=== PATIENT | female | born 1970 | race African-American/Black ===

== ENCOUNTER 2016-12-12 18:45 | Emergency (ER) | payer MEDICARE, OTHER ==
[~2016-12-12] VITALS: Ht 175.3 cm; Wt 133.8 kg
[~2016-12-12 18:45] MED LIST: BUSP30TA; CARI350T PO; CYCL10TA2 PO; DEXT20TA24; DICL75TA; DULO60CA44; FEXO180T81 PO; FLUT16SP; GABA600T2 PO; GABA800T PO; HYDR-963 PO; IBUP-1027 PO; KETO10TA PO; LAMO100T; LIDO700A27; METF500T9; MORP15TA PO; MORP30TA83 PO; OMEP40CA5 PO; PANT40TA5; PARO30TA45 PO; VALA500T
[2016-12-12] MEDS ORDERED: KETOROLAC TROMETHAMINE 60 MG/2 ML INJ. IM ONE (20:15)
[2016-12-12] MEDS ORDERED: CYCLOBENZAPRINE 10 MG TABLET. PO ONE (20:15)
[2016-12-12 20:19] VITALS: BP 153/74
--- NOTE | 2016-12-12 21:25 | PHYS DOC ---
Past Medical History Past Medical History: Cancer, Fibromyalgia, Hypertension, Sciatica, Other Additional Past Medical Histor: morbid obesity,breast and uterine cancer, neuropathy,PTSD Past Surgical History: Cancer Surgery, Hysterectomy, Tonsillectomy Additional Past Surgical Histo: bilateral mastectomy, breast reconstruction, gastric sleeve Alcohol Use: None Drug Use: None Adult General Chief Complaint Chief Complaint: MECHANICAL FALL HPI HPI Patient is a 46 year old female who presents status post fall. Patient reports she was going to sit down on a bench when she slipped off the edge of the bench and fell onto the ground, landing on her buttocks. She presents now with pain in her back as well as her left wrist. She did not hit her head or lose consciousness. She has not taken anything for pain prior to coming to emergency department other than putting some lidocaine gel on her wrist. No numbness or weakness. No loss of bowel or bladder continence. Review of Systems Review of Systems Constitutional: Denies fever or chills Respiratory: Denies cough or shortness of breath Cardiovascular: Denies chest pain GI: Denies abdominal pain, nausea, vomiting, or diarrhea Musculoskeletal: Pain throughout back, L wrist pain Neurologic: Denies headache, focal weakness or sensory changes Current Medications Current Medications Current Medications Medications (Trade) Dose Ordered Sig/[place] Start Time Stop Time Status Last Admin Dose Admin Cyclobenzaprine HCl (Flexeril) 10 mg 1X ONCE 12/12/16 20:15 12/12/16 20:16 DC 12/12/16 20:25 10 MG Ketorolac Tromethamine (Toradol Im) 30 mg 1X ONCE 12/12/16 20:15 12/12/16 20:16 DC 12/12/16 20:26 30 MG Allergies Allergies Allergies Coded Allergies Type Severity Reaction Last Updated Verified sulfamethoxazole Allergy Intermediate itching 06/27/16 Yes trimethoprim Allergy Intermediate itching 06/27/16 Yes I S O L A T I O N *CONTACT* Allergy Unknown 08/25/15 Yes Physical Exam Physical Exam Constitutional: Well developed, well nourished, no acute distress, non-toxic appearance HENT: Normocephalic, atraumatic, bilateral external ears normal Neck: Normal range of motion, no stridor Cardiovascular: Heart rate normal, regular rhythm, no murmur Lungs & Thorax: Bilateral breath sounds clear to auscultation Abdomen: Bowel sounds normal, soft, non-distended, no TTP Back: Mild TTP throughout lumbar and thoracic spine as well as laterally (L>R), no stepoff or deformity noted, no skin lesion Extremities: L wrist TTP over radial aspect of distal wrist, sensation to light touch and motor function fully intact, 2+ radial pulse Neurologic: Alert and oriented X 3, strength and sensation to light touch intact and symmetrical in BLE, no gross deficits noted Psychologic: Affect normal, judgement normal, mood normal Current Patient Data Vital Signs Vital Signs Date Time Temp Pulse Resp B/P Pulse Ox O2 Delivery O2 Flow Rate FiO2 12/12/16 20:19 88 153/74 Room Air 12/12/16 18:45 98.7 20 99 98.7 EKG EKG [] Radiology/Procedures Radiology/Procedures X-ray L wrist (my read): Small cortical irregularity at lateral aspect of distal radius X-ray thoracic spine (my read): No acute bony abnormality X-ray lumbar spine (my read): No acute bony abnormality Course & Med Decision Making Course & Med Decision Making Pertinent Labs and Imaging studies reviewed. (See chart for details) Patient is 46-year-old female who presents after fall. Will obtain x-rays of lumbar and thoracic spine as well as left wrist. Dose of Toradol and muscle relaxant ordered for pain control. Appears to have irregularity of distal radius , unsure if this is acute or chronic; will go ahead and splint anyways and have patient follow up with Ortho. No significant injury noted on x-rays of spine per my read. Discussed results with patient, who is feeling better at this time. Will plan discharge home with instructions for follow-up and return precautions. Dragon Disclaimer Dragon Disclaimer This electronic medical record was generated, in whole or in part, using a voice recognition dictation system. Departure Departure Impression: Primary Impression: Fall Disposition: 01 HOME, SELF-CARE Condition: STABLE Referrals: TRINIDAD RODAS (PCP) LYNDON WORLEY II, MD Patient Instructions: Back Pain, Adult, Wrist Fracture Additional Instructions: Thank you for allowing us to provide care today in the Emergency Department. Take the Flexeril and pain medication that you have at home as directed. Schedule a follow up appointment with your orthopedist for further evaluation of your wrist. Return promptly to the Emergency Department if you develop any new or concerning symptoms. SEVERO RIVERA MD Dec 12, 2016 21:25
--- NOTE | 2016-12-13 07:45 | RAD ---
Left wrist, 3 views, 12/12/2016: History: Fall, pain There is deformity of the distal radius in a pattern most compatible with an old healed fracture. Slight cortical deformity laterally appears to be old. No definite acute fracture is seen. The carpal bones appear intact. There is mild subcutaneous edema about the wrist. IMPRESSION: Distal radial deformity compatible with old trauma.
--- NOTE | 2016-12-13 09:09 | RAD ---
Lumbar spine, 3 views, 12/12/2016: History: Low back pain after a fall The lumbar vertebral heights are well-maintained. There is moderate narrowing of the L5-S1 disc space with endplate sclerosis and marginal spurring. There is a mild grade 1 spondylolisthesis at L4-5. This was not evident on the CT study of 06/27/2016. Differences in patient positioning could be contributing to this apparent change. There are moderate underlying degenerative changes involving the facet joints in the lower lumbar spine. The paraspinous soft tissues are unremarkable. IMPRESSION: 1. Moderate degenerative disc disease at L5-S1. 2. Extensive facet joint arthropathy in the lower lumbar spine. 3. New mild spondylolisthesis at L4-5 probably due to facet joint arthropathy. Underlying spondylolysis cannot be excluded. If pain persists, MR scanning and/or flexion and extension lateral views to assess stability may be useful for further evaluation. Thoracic spine 12/12/2016: History: Back pain after a fall There are mild scattered marginal spurs. No fracture or dislocation is identified. The paraspinous soft tissues are unremarkable. IMPRESSION: 1. Mild marginal spurring. 2. No acute bony abnormality is detected. Note: The findings were called to personnel in the [facility] ER at 8:20 AM on 12/13/2016.
== END 2016-12-12 21:35 | disposition home or self-care (01) ==
LOC: ER 18:45
DX: M54.5 Low back pain (principal); M54.6 Pain in thoracic spine; M25.532 Pain in left wrist; I10 Essential (primary) hypertension; M79.7 Fibromyalgia; F43.10 Post-traumatic stress disorder, unspecified; G62.9 Polyneuropathy, unspecified; Z90.49 Acquired absence of other specified parts of digestive tract; Z90.710 Acquired absence of both cervix and uterus; Z88.2 Allergy status to sulfonamides; Z91.041 Radiographic dye allergy status; Z88.1 Allergy status to other antibiotic agents; W08.XXXA Fall from other furniture, initial encounter; Y93.89 Activity, other specified; Y99.8 Other external cause status; Y92.89 Other specified places as the place of occurrence of the external cause
CPT/HCPCS: 29125; 72072; 72100; 73110; 96372; 99284; J1885

== ENCOUNTER 2017-02-10 16:14 | Emergency (ER) | payer MEDICARE, OTHER ==
[~2017-02-10] VITALS: Ht 175.3 cm; Wt 129.3 kg
[2017-02-10 16:34] VITALS: BP 186/84
--- NOTE | 2017-02-10 16:37 | PHYS DOC ---
Past Medical History Past Medical History: Cancer, Diabetes-Type II, Fibromyalgia, Hypertension, Sciatica, Other Additional Past Medical Histor: morbid obesity,breast and uterine cancer, neuropathy,PTSD Past Surgical History: Cancer Surgery, Hysterectomy, Tonsillectomy Additional Past Surgical Histo: bilateral mastectomy, breast reconstruction, gastric sleeve Alcohol Use: None Drug Use: None Adult General Chief Complaint Chief Complaint: FOOT INJURY PAIN [facility] HPI Patient is a 46 year old female with history of hypertension,diabetes type 2, who presents today with left foot infection after a piece of glass fell and cut her foot as well as exacerbation of chronic low back pain specifically coccyx. Patient denies any trauma but states in December she had a fall, she states they did x-rays including MRI which were negative for any acute findings. She states she follows up with physical therapy. Patient states pain radiates to bilateral lower extremities which is her chronic sciatica pain. Patient denies any loss of bowel bladder function. PCP Dr. Li. Review of Systems Review of Systems Constitutional: Denies fever or chills [] Eyes: Denies change in visual acuity, redness, or eye pain [] HENT: Denies nasal congestion or sore throat [] Respiratory: Denies cough or shortness of breath [] Cardiovascular: No additional information not addressed in HPI [] GI: Denies abdominal pain, nausea, vomiting, bloody stools or diarrhea [] : Denies dysuria or hematuria [] Musculoskeletal: coccyx and chronic back pain. Integument: Left foot infection. Neurologic: Denies headache, focal weakness or sensory changes [] Endocrine: Denies polyuria or polydipsia [] Current Medications Current Medications Current Medications Medications (Trade) Dose Ordered Sig/[place] Start Time Stop Time Status Last Admin Dose Admin Diphtheria/ Tetanus/Acell Pertussis (Boostrix) 0.5 ml ONCE ONCE 02/10/17 16:45 02/10/17 16:46 Allergies Allergies Allergies Coded Allergies Type Severity Reaction Last Updated Verified sulfamethoxazole Allergy Intermediate itching 06/27/16 Yes trimethoprim Allergy Intermediate itching 06/27/16 Yes I S O L A T I O N *CONTACT* Allergy Unknown 08/25/15 Yes Physical Exam Physical Exam Constitutional: Well developed, well nourished, no acute distress, non-toxic appearance. [] HENT: Normocephalic, atraumatic, bilateral external ears normal, oropharynx moist, no oral exudates, nose normal. [] Eyes: PERRLA, EOMI, conjunctiva normal, no discharge. [] Neck: Normal range of motion, no tenderness, supple, no stridor. [] Cardiovascular:Heart rate regular rhythm, no murmur [] Lungs & Thorax: Bilateral breath sounds clear to auscultation [] Abdomen: Bowel sounds normal, soft, no tenderness, no masses, no pulsatile masses. [] Skin: Left lateral MTP joint of the great toe with a tiny scab approximately 0.5 cm with surrounding 1 cm of cellulitis. The area appears erythematous, it's warm and tender to touch. No fluctuance. Back: No tenderness, no CVA tenderness. [] Extremities: No tenderness, no cyanosis, no clubbing, ROM intact, no edema. [] Neurologic: Alert and oriented X 3, normal motor function, normal sensory function, no focal deficits noted. [] Psychologic: Affect normal, judgement normal, mood normal. [] Current Patient Data Vital Signs Vital Signs Date Time Temp Pulse Resp B/P (MAP) Pulse Ox O2 Delivery O2 Flow Rate FiO2 02/10/17 16:34 98.5 112 20 100 Room Air 98.5 EKG EKG [] Radiology/Procedures Radiology/Procedures [] Course & Med Decision Making Course & Med Decision Making Pertinent Labs and Imaging studies reviewed. (See chart for details) Patient is in the ED with exacerbation of chronic low back pain as well as left foot infection. She will be given tetanus in the ED and discharged with clindamycin. She was instructed to follow-up with her own doctor in the next 7 days. She wanted something for pain. She states she normally takes oxycodone. Informed patient I'll write her prescription for 6 tablets of oxycodone. I wrote a restriction on the prescription not to be filled if she has filled any narcotics pain medicine in the last 7 days and she must fill the clindamycin prior to being given to oxycodone. Dragon Disclaimer Dragon Disclaimer This electronic medical record was generated, in whole or in part, using a voice recognition dictation system. Departure Departure Impression: Primary Impression: Left foot infection Additional Impression: Chronic low back pain Disposition: 01 HOME, SELF-CARE Condition: STABLE Referrals: TRINIDAD RODAS (PCP) follow up with your doctor on Sunday Patient Instructions: Back Pain, Adult, Skin Infections Additional Instructions: You were seen for exacerbation of chronic back pain and chronic coccyx pain. You also have foot infection. Take the antibiotics prescribed as ordered. Ensure you complete them. Follow-up with your doctor next week for your chronic back pain. Scripts Oxycodone/Apap 10-325 (PERCOCET 10-325 MG TABLET) 1 Each Tablet 1 TAB PO Q8HRS, #6 TAB DO NOT FILL THIS RX IF SHE HAS FILLED ANY NARCOTICS IN THE LAST SEVEN DAYS MUST FILL CLINDMYCIN PRIOR TO OYXCODONE Prov: CLARK HERNANDEZ APRN 02/10/17 Clindamycin Hcl (CLINDAMYCIN HCL) 150 Mg Capsule 3 CAP PO TID, #90 CAP Prov: CLARK HERNANDEZ APRN 02/10/17 Problem Qualifiers Additional Impression: Chronic low back pain Back pain laterality: bilateral Sciatica presence: with sciatica Sciatica laterality: bilateral sciatica Qualified Codes: M54.42 - Lumbago with sciatica, left side; M54.41 - Lumbago with sciatica, right side; G89.29 - Other chronic pain CLARK HERNANDEZ APRN Feb 10, 2017 16:36
[2017-02-10] MEDS ORDERED: CLIN-44 PO (16:43)
[2017-02-10] MEDS ORDERED: OXYC-250 PO (16:43)
[2017-02-10] MEDS ORDERED: DIPHTH,PERTUSS(ACELL),TET TOX 0.5 ML DISP.SYRIN. VAX IM ONE (16:45)
== END 2017-02-10 16:55 | disposition home or self-care (01) ==
LOC: ER 16:14
DX: L08.9 Local infection of the skin and subcutaneous tissue, unspecified (principal); M54.41 Lumbago with sciatica, right side; M54.42 Lumbago with sciatica, left side; G89.29 Other chronic pain; E66.01 Morbid (severe) obesity due to excess calories; F43.10 Post-traumatic stress disorder, unspecified; I10 Essential (primary) hypertension; M79.7 Fibromyalgia; Z90.13 Acquired absence of bilateral breasts and nipples; E11.40 Type 2 diabetes mellitus with diabetic neuropathy, unspecified; Z68.41 Body mass index [BMI] 40.0-44.9, adult; Z90.710 Acquired absence of both cervix and uterus; Z88.2 Allergy status to sulfonamides; Z91.041 Radiographic dye allergy status; Z88.8 Allergy status to other drugs, medicaments and biological substances
CPT/HCPCS: 90471; 90715; 99283-25

== ENCOUNTER 2017-02-10 18:21 | Emergency (ER) | payer MEDICARE, OTHER ==
[~2017-02-10] VITALS: Ht 175.3 cm; Wt 129.3 kg
[~2017-02-10 18:21] MED LIST changes: +CLIN-44 PO; +OXYC-250 PO
[2017-02-10 19:10] VITALS: BP 150/97
--- NOTE | 2017-02-10 19:11 | PHYS DOC ---
Past Medical History Past Medical History: Cancer, Diabetes-Type II, Fibromyalgia, Hypertension, Sciatica, Other Additional Past Medical Histor: morbid obesity,breast and uterine cancer, neuropathy,PTSD Past Surgical History: Cancer Surgery, Hysterectomy, Tonsillectomy Additional Past Surgical Histo: bilateral mastectomy, breast reconstruction, gastric sleeve Alcohol Use: None Drug Use: None Adult General Chief Complaint Chief Complaint: PAIN CONTROL HPI HPI Patient is a 46 year old female with history of hypertension low back pain sciatica who presents today with exacerbation of coccyx pain. Patient was seen by me in the ED a couple minutes ago. We discharged her home, she states she never left the ED waiting area because she did not have anyone to pick her Up. She checked back in the ED stating she still has pain and needs a ride home. Review of Systems Review of Systems Constitutional: Denies fever or chills [] Eyes: Denies change in visual acuity, redness, or eye pain [] Musculoskeletal: Chronic low back and coccyx pain Integument: Denies rash or skin lesions [] Neurologic: Denies headache, focal weakness or sensory changes [] Endocrine: Denies polyuria or polydipsia [] Current Medications Current Medications Current Medications Medications (Trade) Dose Ordered Sig/[place] Start Time Stop Time Status Last Admin Dose Admin Oxycodone/ Acetaminophen (Percocet 5/325) 2 tab 1X ONCE 02/10/17 19:15 02/10/17 19:16 Allergies Allergies Allergies Coded Allergies Type Severity Reaction Last Updated Verified sulfamethoxazole Allergy Intermediate itching 06/27/16 Yes trimethoprim Allergy Intermediate itching 06/27/16 Yes I S O L A T I O N *CONTACT* Allergy Unknown 08/25/15 Yes Physical Exam Physical Exam Constitutional: Well developed, well nourished, no acute distress, non-toxic appearance. [] HENT: Normocephalic, atraumatic, bilateral external ears normal, oropharynx moist, no oral exudates, nose normal. [] Eyes: PERRLA, EOMI, conjunctiva normal, no discharge. [] Back: Mild coccyx pain and tenderness on exam, no CVA tenderness. [] Extremities: No tenderness, no cyanosis, no clubbing, ROM intact, no edema. [] Neurologic: Alert and oriented X 3, normal motor function, normal sensory function, no focal deficits noted. [] Psychologic: Affect normal, judgement normal, mood normal. [] EKG EKG [] Radiology/Procedures Radiology/Procedures [] Course & Med Decision Making Course & Med Decision Making Pertinent Labs and Imaging studies reviewed. (See chart for details) Patient is in the ED with low back pain and coccyx pain chronic in nature. We just saw in the ED a few minutes ago. We discharged her with oxycodone for pain , she never lifted the ED. She states she did not have a ride. She is also stating her pain is coming back. She has a prescription for pain medicine. She states she may not be able to get the pain medicines tonight because she cannot find a curb that can take her to the pharmacy wait for her to fill the prescription and medical delivery driver her home. I offered her pain medicine in the ED as well as a curb pass. She'll be discharged back home. Dragon Disclaimer Dragon Disclaimer This electronic medical record was generated, in whole or in part, using a voice recognition dictation system. Departure Departure Impression: Primary Impression: Back pain Additional Impression: Coccyx pain Disposition: 01 HOME, SELF-CARE Condition: STABLE Referrals: TRINIDAD RODAS (PCP) Follow-up with the primary care doctor on Sunday Patient Instructions: Back Pain, Adult, [id number] Additional Instructions: You were seen for chronic coccyx and back pain. Follow-up with your doctor next week. Take the prescribed pain medicine you got earlier today as needed for pain. Problem Qualifiers Primary Impression: Back pain Back pain location: low back pain Chronicity: chronic Back pain laterality : bilateral Sciatica presence: with sciatica Sciatica laterality: bilateral sciatica Qualified Codes: M54.42 - Lumbago with sciatica, left side ; M54.41 - Lumbago with sciatica, right side; G89.29 - Other chronic pain CLARK HERNANDEZ APRN Feb 10, 2017 19:11
[2017-02-10] MEDS ORDERED: oxyCODONE/APAP 5/325 1 TAB TABLET PO ONE (19:15)
== END 2017-02-10 19:20 | disposition home or self-care (01) ==
LOC: ER 18:21
DX: M54.41 Lumbago with sciatica, right side (principal); G89.29 Other chronic pain; M53.3 Sacrococcygeal disorders, not elsewhere classified; E66.01 Morbid (severe) obesity due to excess calories; F43.10 Post-traumatic stress disorder, unspecified; I10 Essential (primary) hypertension; M79.7 Fibromyalgia; Z90.13 Acquired absence of bilateral breasts and nipples; E11.40 Type 2 diabetes mellitus with diabetic neuropathy, unspecified; Z90.710 Acquired absence of both cervix and uterus; Z68.41 Body mass index [BMI] 40.0-44.9, adult; Z88.2 Allergy status to sulfonamides; Z88.8 Allergy status to other drugs, medicaments and biological substances; Z91.041 Radiographic dye allergy status
CPT/HCPCS: 99282

== ENCOUNTER 2017-05-17 21:31 | Emergency (ER) | payer MEDICARE, OTHER ==
[~2017-05-17] VITALS: Ht 175.3 cm; Wt 129.7 kg
[~2017-05-17 21:31] MED LIST changes: -CLIN-44 PO; +CLIN150C14 PO; -OXYC-250 PO; +OXYC-328 PO
[2017-05-17 21:59] LABS: BASO % 1 % (0-3); EOS % 4 % (0-3); HEMATOCRIT 35.1 % (36.0-47.0); HEMOGLOBIN 11.5 g/dL (12.0-15.5); LYMPH % 38 % (24-48); MEAN CORPUSCULAR HEMOGLOBIN 29 pg (25-35); MEAN CORPUSCULAR HGB CONC 33 g/dL (31-37); MEAN CORPUSCULAR VOLUME 87 fL (79-100); MONO % 13 % (0-9); NEUT % 45 % (31-73); PLATELET COUNT 247 x10^3/uL (140-400); RED BLOOD COUNT 4.02 x10^6/uL (3.50-5.40); RED CELL DISTRIBUTION WIDTH 14.8 % (11.5-14.5); WHITE BLOOD COUNT 5.5 x10^3/uL (4.0-11.0)
[2017-05-17 22:10] LABS: CALCIUM 9.4 mg/dL (8.5-10.1); GFR 71.9; POTASSIUM 3.9 mmol/L (3.5-5.1)
[2017-05-17 22:16] LABS: ALBUMIN 3.6 g/dL (3.4-5.0); TOTAL BILIRUBIN 0.2 mg/dL (0.2-1.0); TOTAL PROTEIN 7.2 g/dL (6.4-8.2)
--- NOTE | 2017-05-17 22:33 | PHYS DOC ---
Past Medical History Past Medical History: Cancer, Diabetes-Type II, Fibromyalgia, Hypertension, Sciatica, Other Additional Past Medical Histor: morbid obesity,breast and uterine cancer, neuropathy,PTSD Past Surgical History: Cancer Surgery, Hysterectomy, Tonsillectomy Additional Past Surgical Histo: bilateral mastectomy, breast reconstruction, gastric sleeve Alcohol Use: None Drug Use: None Adult General Chief Complaint Chief Complaint: CHEST PAIN [facility] HPI Patient is a 46 year old -[place] female who presents with multiple medical complaints. Patient states she has pain starting in her leg and she is concerned she may have a DVT to her right lower extremity. Patient reports right leg pain for greater than one week. She's been evaluated 2 emergency departments in the past 5 days prior to today's visit. Patient's been evaluated at [facility] for chest pain. She reports poorly discharge. Patient was also evaluated at [facility] for right lower extremity.. Patient reportedly was given a shot of Lovenox and told to follow up for an outpatient ultrasound which she did not 2. Patient currently denies chest pain, shortness of breath, Review of Systems Review of Systems Constitutional: Denies fever or chills [] Eyes: Denies change in visual acuity, redness, or eye pain [] HENT: Denies nasal congestion or sore throat [] Respiratory: Denies cough or shortness of breath [] Cardiovascular: No additional information not addressed in HPI [] GI: Denies abdominal pain, nausea, vomiting, bloody stools or diarrhea [] : Denies dysuria or hematuria [] Musculoskeletal: Denies back pain or joint pain [] Integument: Denies rash or skin lesions [] Neurologic: Denies headache, focal weakness or sensory changes [] Endocrine: Denies polyuria or polydipsia [] Current Medications Current Medications Current Medications Medications (Trade) Dose Ordered Sig/[place] Start Time Stop Time Status Last Admin Dose Admin Ketorolac Tromethamine (Toradol Im) 60 mg 1X ONCE 05/18/17 00:00 05/18/17 00:04 DC 05/17/17 23:53 60 MG Allergies Allergies Allergies Coded Allergies Type Severity Reaction Last Updated Verified sulfamethoxazole Allergy Intermediate itching 06/27/16 Yes trimethoprim Allergy Intermediate itching 06/27/16 Yes I S O L A T I O N *CONTACT* Allergy Unknown 08/25/15 Yes Physical Exam Physical Exam Constitutional: Well developed, well nourished, no acute distress, non-toxic appearance. [] HENT: Normocephalic, atraumatic, bilateral external ears normal, oropharynx moist, no oral exudates, nose normal. [] Eyes: PERRLA, EOMI, conjunctiva normal, no discharge. [] Neck: Normal range of motion, no tenderness, supple, no stridor. [] Cardiovascular:Heart rate regular rhythm, no murmur [] Lungs & Thorax: Bilateral breath sounds clear to auscultation [] Abdomen: Bowel sounds normal, soft, no tenderness, no masses, no pulsatile masses. [] Skin: Warm, dry, no erythema, no rash. [] Back: No tenderness, no CVA tenderness. [] Extremities: No tenderness, no cyanosis, no clubbing, ROM intact, no edema. [] Neurologic: Alert and oriented X 3, normal motor function, normal sensory function, no focal deficits noted. [] Psychologic: Affect normal, judgement normal, mood normal. [] Current Patient Data Vital Signs Vital Signs Date Time Temp Pulse Resp B/P (MAP) Pulse Ox O2 Delivery O2 Flow Rate FiO2 05/17/17 23:21 88 141/75 (97) 05/17/17 22:51 12 93 Room Air 05/17/17 21:46 99.7 99.7 Lab Values Laboratory Tests Test 05/17/17 21:43 White Blood Count 5.5 x10^3/uL (4.0-11.0) Red Blood Count 4.02 x10^6/uL (3.50-5.40) Hemoglobin 11.5 g/dL (12.0-15.5) L Hematocrit 35.1 % (36.0-47.0) L Mean Corpuscular Volume 87 fL (79-100) Mean Corpuscular Hemoglobin 29 pg (25-35) Mean Corpuscular Hemoglobin Concent 33 g/dL (31-37) Red Cell Distribution Width 14.8 % (11.5-14.5) H Platelet Count 247 x10^3/uL (140-400) Neutrophils (%) (Auto) 45 % (31-73) Lymphocytes (%) (Auto) 38 % (24-48) Monocytes (%) (Auto) 13 % (0-9) H Eosinophils (%) (Auto) 4 % (0-3) H Basophils (%) (Auto) 1 % (0-3) Neutrophils # (Auto) 2.4 x10^3uL (1.8-7.7) Lymphocytes # (Auto) 2.0 x10^3/uL (1.0-4.8) Monocytes # (Auto) 0.7 x10^3/uL (0.0-1.1) Eosinophils # (Auto) 0.2 x10^3/uL (0.0-0.7) Basophils # (Auto) 0.0 x10^3/uL (0.0-0.2) Sodium Level 140 mmol/L (136-145) Potassium Level 3.9 mmol/L (3.5-5.1) Chloride Level 105 mmol/L (98-107) Carbon Dioxide Level 23 mmol/L (21-32) Anion Gap 12 (6-14) Blood Urea Nitrogen 27 mg/dL (7-20) H Creatinine 1.0 mg/dL (0.6-1.0) Estimated GFR (Cockcroft-Gault) 71.9 BUN/Creatinine Ratio 27 (6-20) H Glucose Level 140 mg/dL (70-99) H Calcium Level 9.4 mg/dL (8.5-10.1) Total Bilirubin 0.2 mg/dL (0.2-1.0) Aspartate Amino Transferase (AST) 18 U/L (15-37) Alanine Aminotransferase (ALT) 24 U/L (14-59) Alkaline Phosphatase 118 U/L (46-116) H Troponin I Quantitative < 0.017 ng/mL (0.000-0.055) Total Protein 7.2 g/dL (6.4-8.2) Albumin 3.6 g/dL (3.4-5.0) Albumin/Globulin Ratio 1.0 (1.0-1.7) Laboratory Tests 05/17/17 21:43 Laboratory Tests 05/17/17 21:43 EKG EKG [] Radiology/Procedures Radiology/Procedures [CV venous ultrasound right lower extremity: No evidence of DVT] Course & Med Decision Making Course & Med Decision Making Pertinent Labs and Imaging studies reviewed. (See chart for details) [No evidence of DVT. Will defer further evaluation to the patient's PCP.] Dragon Disclaimer Dragon Disclaimer This electronic medical record was generated, in whole or in part, using a voice recognition dictation system. Departure Departure Impression: Primary Impression: Right leg pain Disposition: 01 HOME, SELF-CARE Condition: GOOD Referrals: TRINIDAD RODAS (PCP) MIGUEL KUHN DO May 17, 2017 22:33
--- NOTE | 2017-05-17 22:49 | RAD ---
Examination: Right Lower Extremity Venous Doppler Ultrasound History: Right lower extremity pain Comparison: None Procedure: Otero scale, color flow 2D and spectal waveform analysis images are obtained with and without compression in the area of the common femoral vein, superficial femoral vein - femoral vein junction, main femoral vein (superficial femoral vein) and popliteal vein. Veins of the proximal calf are also imaged. Findings: There is normal duplex flow, color flow and compressibility of all visualized vein segments. No evidence of deep venous thrombus is present. Duplicated proximal and mid superficial femoral vein identified. Impression: No evidence of DVT. Electronically signed by: Eric Hernandez MD (05/17/2017 10:46 PM) [employer]
[2017-05-17 23:21] VITALS: BP 141/75
[2017-05-17] MEDS ORDERED: KETOROLAC TROMETHAMINE 60 MG/2 ML INJ. ONE (23:43)
[2017-05-18] MEDS ORDERED: KETOROLAC TROMETHAMINE 60 MG/2 ML INJ. IM ONE
--- NOTE | 2017-05-18 07:25 | EKG ---
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
== END 2017-05-17 23:55 | disposition home or self-care (01) ==
LOC: ER 21:31
DX: M79.604 Pain in right leg (principal); E11.40 Type 2 diabetes mellitus with diabetic neuropathy, unspecified; I10 Essential (primary) hypertension; M79.7 Fibromyalgia; E66.01 Morbid (severe) obesity due to excess calories; F43.10 Post-traumatic stress disorder, unspecified; Z90.13 Acquired absence of bilateral breasts and nipples; Z88.1 Allergy status to other antibiotic agents; Z91.041 Radiographic dye allergy status
CPT/HCPCS: 36415; 80053; 84484; 85025; 93005; 93971; 96372; 99285; J1885

== ENCOUNTER 2017-05-27 12:39 | Emergency (ER) | payer MEDICARE, OTHER ==
[~2017-05-27] VITALS: Ht 172.7 cm; Wt 129.7 kg
[2017-05-27 13:14] VITALS: BP 159/83
[2017-05-27 13:36] LABS: BILIRUBIN,URINE NEGATIVE (NEG); GLUCOSE,URINE NEGATIVE (NEG); NITRITE,URINE NEGATIVE (NEG); PH,URINE 5.5; PROTEIN,URINE NEGATIVE (NEG-TRACE); UROBILINOGEN,URINE 0.2 mg/dL (0.2 mg/dL)
[2017-05-27] MEDS ORDERED: METH4TAB2 PO (13:53)
[2017-05-27 13:55] LABS: BACTERIA,URINE 0 /HPF (0-FEW); RBC,URINE 0 /HPF (0-2); SQUAMOUS EPITHELIAL CELL,UR FEW /LPF
[2017-05-27] MEDS ORDERED: KETOROLAC 60 MG/2 ML INJ. IM ONE (14:00)
--- NOTE | 2017-05-27 14:49 | PHYS DOC ---
Past Medical History Past Medical History: Cancer, Diabetes-Type II, Fibromyalgia, Hypertension, Sciatica, Other Additional Past Medical Histor: morbid obesity,breast and uterine cancer, neuropathy,PTSD Past Surgical History: Cancer Surgery, Hysterectomy, Tonsillectomy Additional Past Surgical Histo: bilateral mastectomy, breast reconstruction, gastric sleeve Alcohol Use: None Drug Use: None Adult General Chief Complaint Chief Complaint: BACK PAIN - NO INJURY HPI HPI Patient is a 46 year old female who presents with a flare of her sciatica. She states that when she develops this type of pain she cannot sleep. She states that she has multiple pain complaints such as fibromyalgia, peripheral neuropathy, old injuries to her sacrum, and because of these numerous injuries she has a lot of pain consideration. She states that she does not want a prescription for pain medication but needs pain injections in the emergency department. Review of Systems Review of Systems Constitutional: Denies fever or chills [] Respiratory: Denies cough or shortness of breath [] Cardiovascular: No additional information not addressed in HPI [] Musculoskeletal: See history of present illness Integument: Denies rash or skin lesions [] Neurologic: Denies headache, focal weakness or sensory changes [] Endocrine: Denies polyuria or polydipsia [] Current Medications Current Medications Current Medications Medications (Trade) Dose Ordered Sig/[place] Start Time Stop Time Status Last Admin Dose Admin Acetaminophen/ Hydrocodone Bitart (Lortab 5/325) 2 tab 1X ONCE 05/27/17 15:00 05/27/17 15:01 DC 05/27/17 15:07 2 TAB Ketorolac Tromethamine (Toradol Im) 60 mg 1X ONCE 05/27/17 14:00 05/27/17 14:01 DC 05/27/17 14:34 60 MG Allergies Allergies Allergies Coded Allergies Type Severity Reaction Last Updated Verified sulfamethoxazole Allergy Intermediate itching 06/27/16 Yes trimethoprim Allergy Intermediate itching 06/27/16 Yes I S O L A T I O N *CONTACT* Allergy Unknown 08/25/15 Yes Physical Exam Physical Exam Constitutional: Well developed, well nourished, no acute distress, non-toxic appearance. [] Cardiovascular:Heart rate regular rhythm, no murmur [] Lungs & Thorax: Bilateral breath sounds clear to auscultation [] Abdomen: Bowel sounds normal, soft, no tenderness, no masses, no pulsatile masses. [] Skin: Warm, dry, no erythema, no rash. [] Back: Tenderness over SI joints radiating in through her buttocks bilaterally Extremities: No tenderness, no cyanosis, no clubbing, ROM intact, no edema. [] Neurologic: Alert and oriented X 3, normal motor function, normal sensory function, no focal deficits noted. [] Psychologic: Affect normal, judgement normal, mood normal. [] Current Patient Data Vital Signs Vital Signs Date Time Temp Pulse Resp B/P (MAP) Pulse Ox O2 Delivery O2 Flow Rate FiO2 05/27/17 13:14 98.4 97 20 100 Room Air 98.4 Lab Values Laboratory Tests Test 05/27/17 13:20 Urine Collection Type Unknown Urine Color Yellow Urine Clarity Clear Urine pH 5.5 Urine Specific [place] 1.015 Urine Protein Negative mg/dL (NEG-TRACE) Urine Glucose (UA) Negative mg/dL (NEG) Urine Ketones (Stick) Negative mg/dL (NEG) Urine Blood Negative (NEG) Urine Nitrite Negative (NEG) Urine Bilirubin Negative (NEG) Urine Urobilinogen Dipstick 0.2 mg/dL (0.2 mg/dL) Urine Leukocyte Esterase Negative (NEG) Urine RBC 0 /HPF (0-2) Urine WBC 1-4 /HPF (0-4) Urine Squamous Epithelial Cells Few /LPF Urine Transitional Epithelial Cells Few /LPF Urine Bacteria 0 /HPF (0-FEW) Urine Mucus Slight /LPF EKG EKG [] Radiology/Procedures Radiology/Procedures [] Course & Med Decision Making Course & Med Decision Making Pertinent Labs and Imaging studies reviewed. (See chart for details) []1. Sciatica 2. Drug-seeking behavior The patient was given a shot of Toradol and 10 mg of Lortab in the emergency department. She repeatedly said that she did not want pain prescriptions she just wanted injections of narcotic pain medication in the emergency department she stated that she did not want to appear like she was getting pain medication from multiple places. I explained to her that I would not give her a narcotic injection with the amount of pain medication she has at home. She then stated that she was out of pain medication at home. I did agree to give her a shot of Toradol, oral pain medication and a Medrol Dosepak to treat her sciatica. I explained that the steroid would treat the inflammation and greatly improve the pain of the sciatica. She did agree then to take the prescription for the Medrol. She continued to request narcotic pain medication by injection until she left the ED. She was told to follow-up with her primary provider for further evaluation of her pain and for refills of her narcotic pain medication. Ju[place] Disclaimer Dragon Disclaimer This electronic medical record was generated, in whole or in part, using a voice recognition dictation system. Departure Departure Impression: Primary Impression: Sciatica Disposition: HOME, SELF-CARE Condition: STABLE Referrals: TRINIDAD RODAS (PCP) Patient Instructions: Sciatica Additional Instructions: Follow-up with your primary care provider for further evaluation of your pain and to refill your pain medications. Scripts Methylprednisolone (MEDROL) 4 Mg Tab.ds.pk 1 PKG PO UD, #1 PKG Prov: ELÍAS LANDAVERDE APRN 05/27/17 ELÍAS LANDAVERDE APRN May 27, 2017 14:49
[2017-05-27] MEDS ORDERED: HYDROcodone/APAP 5/325MG 1 TAB TABLET PO ONE (15:00)
== END 2017-05-27 15:10 | disposition home or self-care (01) ==
LOC: ER 12:39
DX: M54.42 Lumbago with sciatica, left side (principal); M54.41 Lumbago with sciatica, right side; M79.7 Fibromyalgia; I10 Essential (primary) hypertension; E66.01 Morbid (severe) obesity due to excess calories; E11.40 Type 2 diabetes mellitus with diabetic neuropathy, unspecified; F43.10 Post-traumatic stress disorder, unspecified; Z90.710 Acquired absence of both cervix and uterus; Z68.41 Body mass index [BMI] 40.0-44.9, adult; Z90.13 Acquired absence of bilateral breasts and nipples; Z88.2 Allergy status to sulfonamides; Z88.1 Allergy status to other antibiotic agents; Z91.041 Radiographic dye allergy status
CPT/HCPCS: 81001; 96372; 99283; J1885

== ENCOUNTER 2019-02-05 15:40 | Inpatient (IN) | payer MEDICARE, OTHER ==
[~2019-02-05] VITALS: Ht 175.3 cm; Wt 120.0 kg
[~2019-02-05 15:40] MED LIST changes: -GABA600T2 PO; +GABA600T7 PO; +HYDR-3135 PO; -HYDR-963 PO; +METH4TAB2 PO; -OXYC-328 PO; +OXYC1TAB22 PO
[2019-02-05] MEDS ORDERED: IV NORMAL SALINE 1000ML BAG 1,000 ML IV ONE ×2 (16:30→19:00)
[2019-02-05] MEDS ORDERED: IBUPROFEN 200 MG TABLET. PO ONE (16:30)
[2019-02-05 17:11] LABS: BASO % 0 % (0-3); EOS # 0.1 x10^3/uL (0.0-0.7); EOS % 1 % (0-3); HEMOGLOBIN 13.6 g/dL (12.0-15.5); LYMPH # 1.9 x10^3/uL (1.0-4.8); LYMPH % 31 % (24-48); MEAN CORPUSCULAR HEMOGLOBIN 27 pg (25-35); MEAN CORPUSCULAR HGB CONC 33 g/dL (31-37); MEAN CORPUSCULAR VOLUME 83 fL (79-100); MONO # 0.7 x10^3/uL (0.0-1.1); MONO % 11 % (0-9); NEUT # 3.5 x10^3uL (1.8-7.7); NEUT % 56 % (31-73); PLATELET COUNT 317 x10^3/uL (140-400); RED BLOOD COUNT 4.95 x10^6/uL (3.50-5.40); RED CELL DISTRIBUTION WIDTH 14.2 % (11.5-14.5); WHITE BLOOD COUNT 6.2 x10^3/uL (4.0-11.0)
[2019-02-05 17:22] LABS: PROTHROMBIN TIME PATIENT 13.7 SEC (11.7-14.0)
[2019-02-05 17:27] LABS: D-DIMER 0.39 ug/mlFEU (0.00-0.50)
[2019-02-05 17:32] LABS: CALCIUM 10.4 mg/dL (8.5-10.1); GFR 71.3
[2019-02-05 17:39] LABS: ALBUMIN 4.1 g/dL (3.4-5.0); ALBUMIN/GLOBULIN RATIO 1.2 (1.0-1.7); MAGNESIUM 1.7 mg/dL (1.8-2.4); TOTAL BILIRUBIN 0.4 mg/dL (0.2-1.0); TOTAL PROTEIN 7.6 g/dL (6.4-8.2)
[2019-02-05 17:48] LABS: CREATINE KINASE 61 U/L (26-192)
[2019-02-05 18:11] LABS: BILIRUBIN,URINE SMALL (NEG); CLARITY,URINE CLEAR; COLOR,URINE YELLOW; NITRITE,URINE NEGATIVE (NEG); PH,URINE 5.5; PROTEIN,URINE NEGATIVE (NEG-TRACE)
[2019-02-05 18:17] LABS: BARBITURATES NEG (NEG); BENZODIAZEPINES NEG (NEG); CANNABINOIDS NEG (NEG); COCAINE NEG (NEG); METHADONE NEG (NEG); OPIATES NEG (NEG); PHENCYCLIDINE NEG (NEG)
[2019-02-05 18:19] LABS: SQUAMOUS EPITHELIAL CELL,UR MANY /LPF
[2019-02-05 18:20] LABS: AMORPHOUS SEDIMENT,UR PRESENT /HPF; BACTERIA,URINE FEW /HPF (0-FEW); HYALINE CASTS, URINE FEW /HPF; RBC,URINE RARE /HPF (0-2)
--- NOTE | 2019-02-05 18:22 | RAD ---
CT scan of the head without contrast 02/05/2019 Clinical History: Dizziness. Technique: Unenhanced, contiguous, 5 mm axial sections were obtained through the head. One or more of the following individualized dose reduction techniques were utilized for this study: 1. Automated exposure control. 2. Adjustment of the mA and/or kV according to patient size. 3. Use of iterative reconstruction technique. Findings: The ventricles and sulci are within normal limits in size and configuration. No focal area of abnormal attenuation is seen involving the brain parenchyma. No extra-axial fluid collection is seen. No skull fracture is seen. Impression: Negative study. Electronically signed by: Mike Higgins MD (02/05/2019 6:19 PM) [facility]
[2019-02-05 18:28] LABS: AMPHETAMINE/METHAMPHETAMINE POS (NEG)
--- NOTE | 2019-02-05 18:54 | PHYS DOC ---
Past Medical History Past Medical History: Anxiety, Cancer, Depression, Diabetes-Type II, Fibromyalgia, Hypertension, Migraines, Sciatica, Other Additional Past Medical Histor: morbid obesity,breast and uterine cancer, neuropathy,PTSD, Herpies zoster Past Surgical History: Cancer Surgery, Hysterectomy, Tonsillectomy Additional Past Surgical Histo: bilateral mastectomy, breast reconstruction,gastric sleeve Alcohol Use: None Drug Use: None Adult General Chief Complaint Chief Complaint: DIZZY/LIGHT HEADED HPI HPI Patient is a 48 year old female with a history of diabetes type 2, hypertension, breast cancer with double mastectomy with breast reconstruction, she states she's had a total of 23 surgeries. She states since Sunday she's had intermittent episodes of dizziness and lightheadedness as well as fevers with the highest temperature being 100.0. Patient states the dizziness is worse when she is up. Denies any nausea vomiting. Denies any headache. Denies any cough or congestion. She is also requesting we look at her rectum. She states she believes she has a wound that is draining. She states she's had multiple rectal abscesses before. Denies any chest pain, denies any shortness of breath. Review of Systems Review of Systems Constitutional: Reports fevers Eyes: Denies change in visual acuity, redness, or eye pain [] HENT: Denies nasal congestion or sore throat [] Respiratory: Denies cough or shortness of breath [] Cardiovascular: No additional information not addressed in HPI [] GI: Reports rectal pain. Denies abdominal pain, nausea, vomiting, bloody stools or diarrhea [] : Denies dysuria or hematuria [] Musculoskeletal: Denies back pain or joint pain [] Integument: Denies rash or skin lesions [] Neurologic: Reports dizziness, lightheadedness. Denies headache, focal weakness or sensory changes [] All other systems were reviewed and found to be within normal limits, except as documented in this note. Current Medications Current Medications Current Medications Medications (Trade) Dose Ordered Sig/[place] Start Time Stop Time Status Last Admin Dose Admin Bupropion HCl (Wellbutrin Sr) 300 mg DAILY 02/06/19 09:00 Ceftriaxone Sodium (Rocephin) 1 gm 1X ONCE 02/05/19 19:00 02/05/19 19:02 DC 02/05/19 19:22 1 GM Cyclobenzaprine HCl (Flexeril) 10 mg TID 5/29/19 21:00 Duloxetine HCl (Cymbalta) 120 mg DAILY 02/06/19 09:00 Fentanyl Citrate (Fentanyl 2ml Vial) 25 mcg PRN Q2HR PRN 02/05/19 19:00 Gabapentin (Neurontin) 1,200 mg TID 02/05/19 21:00 Ibuprofen (Motrin) 600 mg 1X ONCE 02/05/19 16:30 02/05/19 16:31 DC Magnesium Sulfate/ Dextrose 100 ml @ 100 mls/hr 1X ONCE 02/05/19 19:15 02/05/19 20:14 02/05/19 19:29 100 MLS/HR Metformin HCl (Glucophage) 1,000 mg BIDWMEALS 02/06/19 08:00 Ondansetron HCl (Zofran) 4 mg PRN Q8HRS PRN 02/05/19 19:00 02/06/19 18:59 Oxycodone/ Acetaminophen (Percocet 10/325) 1 tab Q8HRS 02/05/19 22:00 Pantoprazole Sodium (Protonix) 40 mg DAILYAC 02/06/19 07:30 Sodium Chloride 1,000 ml @ 125 mls/hr 1X ONCE 02/05/19 19:00 02/06/19 02:59 Trazodone HCl (Desyrel) 100 mg PRN QHS PRN 02/05/19 19:00 Allergies Allergies Allergies Coded Allergies Type Severity Reaction Last Updated Verified Sulfa (Sulfonamide Antibiotics) Allergy Intermediate Itching 02/05/19 Yes acetaminophen Allergy Intermediate Itching 02/05/19 Yes hydrocodone Allergy Intermediate Itching 02/05/19 Yes sulfamethoxazole Allergy Intermediate itching 06/27/16 Yes trimethoprim Allergy Intermediate itching 06/27/16 Yes I S O L A T I O N *CONTACT* Allergy Unknown 08/25/15 Yes Physical Exam Physical Exam Constitutional: Well developed, well nourished, no acute distress, non-toxic appearance. [] HENT: Normocephalic, atraumatic, bilateral external ears normal, oropharynx moist, no oral exudates, nose normal. [] Eyes: PERRLA, EOMI, conjunctiva normal, no discharge. [] Neck: Normal range of motion, no tenderness, supple, no stridor. [] Cardiovascular:tachycardia Lungs & Thorax: Bilateral breath sounds clear to auscultation [] Abdomen: Bowel sounds normal, soft, no tenderness, no masses, no pulsatile masses. [] Rectal exam-excoriation noted on the inner buttocks. Multiple old surgical incision noted on the inner thighs. Skin: Warm, dry, no erythema, no rash. Bilateral breast with old healed surgical incisions consistent with double mastectomy with reconstruction Back: No tenderness, no CVA tenderness. [] Extremities: No tenderness, no cyanosis, no clubbing, ROM intact, no edema. [] Neurologic: Alert and oriented X 3, normal motor function, normal sensory function, no focal deficits noted. [] Psychologic: appears anxious. Current Patient Data Vital Signs Vital Signs Date Time Temp Pulse Resp B/P (MAP) Pulse Ox O2 Delivery O2 Flow Rate FiO2 02/05/19 15:45 99.3 122 20 146/71 (96) 100 Room Air 99.3 Lab Values Laboratory Tests Test 02/05/19 17:00 02/05/19 17:55 White Blood Count 6.2 x10^3/uL (4.0-11.0) Red Blood Count 4.95 x10^6/uL (3.50-5.40) Hemoglobin 13.6 g/dL (12.0-15.5) Hematocrit 41.0 % (36.0-47.0) Mean Corpuscular Volume 83 fL (79-100) Mean Corpuscular Hemoglobin 27 pg (25-35) Mean Corpuscular Hemoglobin Concent 33 g/dL (31-37) Red Cell Distribution Width 14.2 % (11.5-14.5) Platelet Count 317 x10^3/uL (140-400) Neutrophils (%) (Auto) 56 % (31-73) Lymphocytes (%) (Auto) 31 % (24-48) Monocytes (%) (Auto) 11 % (0-9) H Eosinophils (%) (Auto) 1 % (0-3) Basophils (%) (Auto) 0 % (0-3) Neutrophils # (Auto) 3.5 x10^3uL (1.8-7.7) Lymphocytes # (Auto) 1.9 x10^3/uL (1.0-4.8) Monocytes # (Auto) 0.7 x10^3/uL (0.0-1.1) Eosinophils # (Auto) 0.1 x10^3/uL (0.0-0.7) Basophils # (Auto) 0.0 x10^3/uL (0.0-0.2) Prothrombin Time 13.7 SEC (11.7-14.0) Prothrombin Time INR 1.1 (0.8-1.1) D-Dimer (Lluvia) 0.39 ug/mlFEU (0.00-0.50) Sodium Level 141 mmol/L (136-145) Potassium Level 4.0 mmol/L (3.5-5.1) Chloride Level 101 mmol/L (98-107) Carbon Dioxide Level 25 mmol/L (21-32) Anion Gap 15 (6-14) H Blood Urea Nitrogen 13 mg/dL (7-20) Creatinine 1.0 mg/dL (0.6-1.0) Estimated GFR (Cockcroft-Gault) 71.3 BUN/Creatinine Ratio 13 (6-20) Glucose Level 125 mg/dL (70-99) H Lactic Acid Level 2.4 mmol/L (0.4-2.0) H Calcium Level 10.4 mg/dL (8.5-10.1) H Magnesium Level 1.7 mg/dL (1.8-2.4) L Total Bilirubin 0.4 mg/dL (0.2-1.0) Aspartate Amino Transferase (AST) 15 U/L (15-37) Alanine Aminotransferase (ALT) 22 U/L (14-59) Alkaline Phosphatase 60 U/L (46-116) Creatine Kinase 61 U/L (26-192) Creatine Kinase MB (Mass) < 0.5 ng/mL (0.0-3.6) Creatine Kinase MB Relative Index % (0-4) Troponin I Quantitative < 0.017 ng/mL (0.000-0.055) VS-Nmm-C-Type Natriuretic Peptide 18 pg/mL (0-124) Total Protein 7.6 g/dL (6.4-8.2) Albumin 4.1 g/dL (3.4-5.0) Albumin/Globulin Ratio 1.2 (1.0-1.7) Lipase 118 U/L (73-393) Procalcitonin < 0.10 ng/mL (0.00-0.10) Thyroid Stimulating Hormone (TSH) 0.494 uIU/mL (0.358-3.74) Urine Collection Type Unknown Urine Color Yellow Urine Clarity Clear Urine pH 5.5 Urine Specific [place] 1.020 Urine Protein Negative mg/dL (NEG-TRACE) Urine Glucose (UA) Negative mg/dL (NEG) Urine Ketones (Stick) Trace mg/dL (NEG) Urine Blood Negative (NEG) Urine Nitrite Negative (NEG) Urine Bilirubin Small (NEG) Urine Urobilinogen Dipstick 1.0 mg/dL (0.2 mg/dL) Urine Leukocyte Esterase Negative (NEG) Urine RBC Rare /HPF (0-2) Urine WBC 1-4 /HPF (0-4) Urine Squamous Epithelial Cells Many /LPF Urine Amorphous Sediment Present /HPF Urine Bacteria Few /HPF (0-FEW) Urine Hyaline Casts Few /HPF Urine Mucus Marked /LPF Urine Opiates Screen Neg (NEG) Urine Methadone Screen Neg (NEG) Urine Barbiturates Neg (NEG) Urine Phencyclidine Screen Neg (NEG) Urine Amphetamine/Methamphetamine Pos (NEG) Urine Benzodiazepines Screen Neg (NEG) Urine Cocaine Screen Neg (NEG) Urine Cannabinoids Screen Neg (NEG) Urine Ethyl Alcohol Neg (NEG) Laboratory Tests 02/05/19 17:00 Laboratory Tests 02/05/19 17:00 EKG EKG 16:[address] Santana sinus tachycardia heart rate 120 no STEMI Radiology/Procedures Radiology/Procedures []PROCEDURE: CT HEAD WO CONTRAST CT scan of the head without contrast 02/05/2019 Clinical History: Dizziness. Technique: Unenhanced, contiguous, 5 mm axial sections were obtained through the head. One or more of the following individualized dose reduction techniques were utilized for this study: 1. Automated exposure control. 2. Adjustment of the mA and/or kV according to patient size. 3. Use of iterative reconstruction technique. Findings: The ventricles and sulci are within normal limits in size and configuration. No focal area of abnormal attenuation is seen involving the brain parenchyma. No extra-axial fluid collection is seen. No skull fracture is seen. Impression: Negative study. Electronically signed by: Mike Higgins MD (02/05/2019 6:19 PM) [facility] DICTATED and SIGNED BY: MIKE HIGGINS MD DATE: 02/05/191818 Course & Med Decision Making Course & Med Decision Making Pertinent Labs and Imaging studies reviewed. (See chart for details) This is a 48-year-old female patient presented to the ED today complaining of l ightheadedness, dizziness, symptoms worse when she is up, also complaining of fever and rectal pain. Symptoms began on Sunday. On arrival to the ED temperature 99.3, heart rate 122, blood pressure 146/71, O2 sats 100% on room air, respiration 20. Urine drug screen noted for methamphetamine use which could be causing patient's heart rate to be high. Urine analysis is negative for UTI. CBC with a normal WBC, CMP would not acute findings. Lactic noted at 2.4. D- dimer is normal. Patient did not have an IV access initially, IV was established. Rocephin was ordered. CT of the head is negative. Patient has been asking for pain medicine since she came to the ED. I tried to encourage her wait until all her tests are done before we can give any narcotic-type in medicine. She refused ibuprofen for pain or fever, she states she is also allergic to Tylenol. Spoke with Dr. Kelly who accepted patient for admission Dragon Disclaimer Dragon Disclaimer This electronic medical record was generated, in whole or in part, using a voice recognition dictation system. Departure Departure Impression: Primary Impression: Tachycardia Additional Impressions: Methamphetamine use Dizziness Lightheadedness Disposition: 09 ADMITTED INPATIENT Condition: STABLE Referrals: TRINIDAD RODAS (PCP) Problem Qualifiers CLARK HERNANDEZ APRN February 05, 2019 18:54
--- NOTE | 2019-02-05 18:54 | PDOC1 ---
History and Physical Date of Admission Date of Admission DATE: 02/05/19 TIME: 18:46 Identification/Chief Complaint Chief Complaint dizzy, lightheaded Source Source: Caregiver, Chart review, Patient History of Present Illness History of Present Illness SHe comes in with a gamut of complaints. She is a 48-year-old -[place] female with BMI 41, history of hydradenitis suppurativa in the rectal area needing surgery in the past. She comes in with dizziness, lightheadedness but stable VS except for sinus tachycardia 133 via EMS with prolonged QT 50s via EMS strip that I have personally reviewed. Then she tells me about palpitations or chest discomfort or some weird feeling in her mid sternal/epigastric area. No known CAD personal hx, NOn smoker, non drinker, Mag slightly low 1.7. Calcium slightly high 10.4. Lactate 2.4. She admits she is dehydrated has not been drinking lately. She knows by memory all her medications namely: gabapentin 1200mgs 3 times a day, Flexeril 10mgs when necessary Metformin 500 twice a day but she increased to 1000 twice a day without her MD knowledge because she did not like her recent A1c, Wellbutrin 300mgs daily Cymbalta 120mgs daily at bedtime, Adderall 40 mg once a day, trazodone 100 when necessary. She requests for IV narcotics. Admitted for elevated lactate, unclear source, clean UA. CT head is negative. Chest x-rays pending. Sinus tachycardia with prolonged QT and some electric abnormalities namely hyper or hypocalcemia and hypomagnesemia. NO diarrhea, no fevers here, REctum I did inspect, clean there, no abscess Past medical history is breast cancer April 2010, uterine cancer 2003 Borderline diabetes Fibromyalgia Peripheral neuropathy from chemotherapy 2000 Past surgical history TAHBSO Past Surgical History Past Surgical History: Hysterectomy Family History Family History: No Significant, Hypertension Social History Smoke: No ALCOHOL: occassional Drugs: None Current Medications Current Medications Current Medications Sodium Chloride 1,000 ml @ 1,000 mls/hr 1X ONCE IV ; Start 02/05/19 at 16:30; Stop 02/05/19 at 17:29; Status DC Ibuprofen (Motrin) 600 mg 1X ONCE PO ; Start 02/05/19 at 16:30; Stop 02/05/19 at 16:31; Status DC Active Scripts Active Medrol (Methylprednisolone) 4 Mg Tab.ds.pk 1 Pkg PO UD Percocet 10-325 Mg Tablet (Oxycodone/Acetaminophen) 1 Each Tablet 1 Tab PO Q8HRS DO NOT FILL THIS RX IF SHE HAS FILLED ANY NARCOTICS IN THE LAST SEVEN DAYS MUST FILL CLINDMYCIN PRIOR TO OYXCODONE Clindamycin Hcl 150 Mg Capsule 3 Cap PO TID Morphine Sulfate 15 Mg Tablet 1 Tab PO QID PRN Ms Contin (Morphine Sulfate) 30 Mg Tablet.er 0.5 Tab PO BID Ketorolac Tromethamine 10 Mg Tablet 1 Tab PO PRN Q6HRS Reported Diclofenac Sodium 75 Mg Tablet. Neurontin (Gabapentin) 800 Mg Tablet 800 Mg PO TID Lidocaine 700 Mg Adh..patch Lamotrigine 100 Mg Tablet Duloxetine Hcl 60 Mg Capsule. Metformin Hcl Er (Metformin Hcl) 500 Mg Tab.er.24h Pantoprazole Sodium 40 Mg Tablet. Buspirone Hcl 30 Mg Tablet Amphetamine Salts 20 Mg Tablet (Dextroamphetamine/Amphetamine) 20 Mg Tablet Valacyclovir (Valacyclovir Hcl) 500 Mg Tablet Fluticasone Propionate Nasal [place] (Fluticasone Propionate) 16 Gm [place].susp Cyclobenzaprine Hcl 10 Mg Tablet 1 Tab PO TID Carrie Allergy (Fexofenadine Hcl) 180 Mg Tablet 180 Mg PO DAILY [place] 10-325 Tablet (Acetaminophen/Hydrocodone Bitart) 1 Each Tablet 2 Tab PO Q4HRS PRN Omeprazole 40 Mg Capsule. 40 Mg PO BID Soma (Carisoprodol) 350 Mg Tablet 1 Tab PO TID Ibuprofen 400 Mg Tablet 600 Mg PO TID Paxil (Paroxetine Hcl) 30 Mg Tablet 60 Mg PO DAILY Gabapentin 600 Mg Tablet 1,200 Mg PO TID Allergies Allergies: Coded Allergies: Sulfa (Sulfonamide Antibiotics) (Verified Allergy, Intermediate, Itching, 02/05/19) acetaminophen (Verified Allergy, Intermediate, Itching, 02/05/19) hydrocodone (Verified Allergy, Intermediate, Itching, 02/05/19) sulfamethoxazole (Verified Allergy, Intermediate, itching, 06/27/16) trimethoprim (Verified Allergy, Intermediate, itching, 06/27/16) I S O L A T I O N *CONTACT* (Verified Allergy, Unknown, 08/25/15) mrsa + ROS Review of System As per history of present illness, the rest of ROS 14 point negative Physical Exam General: Alert, Oriented X3, Cooperative, No acute distress HEENT: Atraumatic, PERRLA, EOMI Lungs: Clear to auscultation, Normal air movement Heart: S1S2, no thrills, no rubs, no gallops, no murmurs, other (sinus tachycardia) Abdomen: Normal bowel sounds, Soft, No tenderness, No hepatosplenomegaly, No masses Rectal Exam: not examined PELVIC: Nml ext genitalia Extremities: No clubbing, No cyanosis, No edema, Normal pulses, No tenderness/swelling Skin: No rashes, No breakdown, No significant lesion Neuro: Normal gait, Normal speech, Strength at 5/5 X4 ext, Normal tone, Sensation intact, Cranial nerves 3-12 NL, Reflexes 2+ Psych/Mental Status: Mental status NL, Mood NL Vitals Vitals Vital Signs Date Time Temp Pulse Resp B/P (MAP) Pulse Ox O2 Delivery O2 Flow Rate FiO2 02/05/19 15:45 99.3 122 20 146/71 (96) 100 Room Air 99.3 Labs Labs Laboratory Tests Test 02/05/19 17:00 02/05/19 17:55 White Blood Count 6.2 x10^3/uL (4.0-11.0) Red Blood Count 4.95 x10^6/uL (3.50-5.40) Hemoglobin 13.6 g/dL (12.0-15.5) Hematocrit 41.0 % (36.0-47.0) Mean Corpuscular Volume 83 fL (79-100) Mean Corpuscular Hemoglobin 27 pg (25-35) Mean Corpuscular Hemoglobin Concent 33 g/dL (31-37) Red Cell Distribution Width 14.2 % (11.5-14.5) Platelet Count 317 x10^3/uL (140-400) Neutrophils (%) (Auto) 56 % (31-73) Lymphocytes (%) (Auto) 31 % (24-48) Monocytes (%) (Auto) 11 % (0-9) Eosinophils (%) (Auto) 1 % (0-3) Basophils (%) (Auto) 0 % (0-3) Neutrophils # (Auto) 3.5 x10^3uL (1.8-7.7) Lymphocytes # (Auto) 1.9 x10^3/uL (1.0-4.8) Monocytes # (Auto) 0.7 x10^3/uL (0.0-1.1) Eosinophils # (Auto) 0.1 x10^3/uL (0.0-0.7) Basophils # (Auto) 0.0 x10^3/uL (0.0-0.2) Prothrombin Time 13.7 SEC (11.7-14.0) Prothromb Time International Ratio 1.1 (0.8-1.1) D-Dimer (Lluvia) 0.39 ug/mlFEU (0.00-0.50) Sodium Level 141 mmol/L (136-145) Potassium Level 4.0 mmol/L (3.5-5.1) Chloride Level 101 mmol/L (98-107) Carbon Dioxide Level 25 mmol/L (21-32) Anion Gap 15 (6-14) Blood Urea Nitrogen 13 mg/dL (7-20) Creatinine 1.0 mg/dL (0.6-1.0) Estimated GFR (Cockcroft-Gault) 71.3 BUN/Creatinine Ratio 13 (6-20) Glucose Level 125 mg/dL (70-99) Lactic Acid Level 2.4 mmol/L (0.4-2.0) Calcium Level 10.4 mg/dL (8.5-10.1) Magnesium Level 1.7 mg/dL (1.8-2.4) Total Bilirubin 0.4 mg/dL (0.2-1.0) Aspartate Amino Transf (AST/SGOT) 15 U/L (15-37) Alanine Aminotransferase (ALT/SGPT) 22 U/L (14-59) Alkaline Phosphatase 60 U/L (46-116) Creatine Kinase 61 U/L (26-192) Creatine Kinase MB (Mass) < 0.5 ng/mL (0.0-3.6) Creatine Kinase MB Relative Index % (0-4) Troponin I Quantitative < 0.017 ng/mL (0.000-0.055) PN-Qir-V-Type Natriuretic Peptide 18 pg/mL (0-124) Total Protein 7.6 g/dL (6.4-8.2) Albumin 4.1 g/dL (3.4-5.0) Albumin/Globulin Ratio 1.2 (1.0-1.7) Lipase 118 U/L (73-393) Procalcitonin < 0.10 ng/mL (0.00-0.10) Thyroid Stimulating Hormone (TSH) 0.494 uIU/mL (0.358-3.74) Urine Collection Type Unknown Urine Color Yellow Urine Clarity Clear Urine pH 5.5 Urine Specific [place] 1.020 Urine Protein Negative mg/dL (NEG-TRACE) Urine Glucose (UA) Negative mg/dL (NEG) Urine Ketones (Stick) Trace mg/dL (NEG) Urine Blood Negative (NEG) Urine Nitrite Negative (NEG) Urine Bilirubin Small (NEG) Urine Urobilinogen Dipstick 1.0 mg/dL (0.2 mg/dL) Urine Leukocyte Esterase Negative (NEG) Urine RBC Rare /HPF (0-2) Urine WBC 1-4 /HPF (0-4) Urine Squamous Epithelial Cells Many /LPF Urine Amorphous Sediment Present /HPF Urine Bacteria Few /HPF (0-FEW) Urine Hyaline Casts Few /HPF Urine Mucus Marked /LPF Urine Opiates Screen Neg (NEG) Urine Methadone Screen Neg (NEG) Urine Barbiturates Neg (NEG) Urine Phencyclidine Screen Neg (NEG) Urine Amphetamine/Methamphetamine Pos (NEG) Urine Benzodiazepines Screen Neg (NEG) Urine Cocaine Screen Neg (NEG) Urine Cannabinoids Screen Neg (NEG) Urine Ethyl Alcohol Neg (NEG) Laboratory Tests Test 02/05/19 17:00 02/05/19 17:55 White Blood Count 6.2 x10^3/uL (4.0-11.0) Red Blood Count 4.95 x10^6/uL (3.50-5.40) Hemoglobin 13.6 g/dL (12.0-15.5) Hematocrit 41.0 % (36.0-47.0) Mean Corpuscular Volume 83 fL (79-100) Mean Corpuscular Hemoglobin 27 pg (25-35) Mean Corpuscular Hemoglobin Concent 33 g/dL (31-37) Red Cell Distribution Width 14.2 % (11.5-14.5) Platelet Count 317 x10^3/uL (140-400) Neutrophils (%) (Auto) 56 % (31-73) Lymphocytes (%) (Auto) 31 % (24-48) Monocytes (%) (Auto) 11 % (0-9) Eosinophils (%) (Auto) 1 % (0-3) Basophils (%) (Auto) 0 % (0-3) Neutrophils # (Auto) 3.5 x10^3uL (1.8-7.7) Lymphocytes # (Auto) 1.9 x10^3/uL (1.0-4.8) Monocytes # (Auto) 0.7 x10^3/uL (0.0-1.1) Eosinophils # (Auto) 0.1 x10^3/uL (0.0-0.7) Basophils # (Auto) 0.0 x10^3/uL (0.0-0.2) Prothrombin Time 13.7 SEC (11.7-14.0) Prothromb Time International Ratio 1.1 (0.8-1.1) D-Dimer (Lluvia) 0.39 ug/mlFEU (0.00-0.50) Sodium Level 141 mmol/L (136-145) Potassium Level 4.0 mmol/L (3.5-5.1) Chloride Level 101 mmol/L (98-107) Carbon Dioxide Level 25 mmol/L (21-32) Anion Gap 15 (6-14) Blood Urea Nitrogen 13 mg/dL (7-20) Creatinine 1.0 mg/dL (0.6-1.0) Estimated GFR (Cockcroft-Gault) 71.3 BUN/Creatinine Ratio 13 (6-20) Glucose Level 125 mg/dL (70-99) Lactic Acid Level 2.4 mmol/L (0.4-2.0) Calcium Level 10.4 mg/dL (8.5-10.1) Magnesium Level 1.7 mg/dL (1.8-2.4) Total Bilirubin 0.4 mg/dL (0.2-1.0) Aspartate Amino Transf (AST/SGOT) 15 U/L (15-37) Alanine Aminotransferase (ALT/SGPT) 22 U/L (14-59) Alkaline Phosphatase 60 U/L (46-116) Creatine Kinase 61 U/L (26-192) Creatine Kinase MB (Mass) < 0.5 ng/mL (0.0-3.6) Creatine Kinase MB Relative Index % (0-4) Troponin I Quantitative < 0.017 ng/mL (0.000-0.055) YA-Mlm-T-Type Natriuretic Peptide 18 pg/mL (0-124) Total Protein 7.6 g/dL (6.4-8.2) Albumin 4.1 g/dL (3.4-5.0) Albumin/Globulin Ratio 1.2 (1.0-1.7) Lipase 118 U/L (73-393) Procalcitonin < 0.10 ng/mL (0.00-0.10) Thyroid Stimulating Hormone (TSH) 0.494 uIU/mL (0.358-3.74) Urine Collection Type Unknown Urine Color Yellow Urine Clarity Clear Urine pH 5.5 Urine Specific [place] 1.020 Urine Protein Negative mg/dL (NEG-TRACE) Urine Glucose (UA) Negative mg/dL (NEG) Urine Ketones (Stick) Trace mg/dL (NEG) Urine Blood Negative (NEG) Urine Nitrite Negative (NEG) Urine Bilirubin Small (NEG) Urine Urobilinogen Dipstick 1.0 mg/dL (0.2 mg/dL) Urine Leukocyte Esterase Negative (NEG) Urine RBC Rare /HPF (0-2) Urine WBC 1-4 /HPF (0-4) Urine Squamous Epithelial Cells Many /LPF Urine Amorphous Sediment Present /HPF Urine Bacteria Few /HPF (0-FEW) Urine Hyaline Casts Few /HPF Urine Mucus Marked /LPF Urine Opiates Screen Neg (NEG) Urine Methadone Screen Neg (NEG) Urine Barbiturates Neg (NEG) Urine Phencyclidine Screen Neg (NEG) Urine Amphetamine/Methamphetamine Pos (NEG) Urine Benzodiazepines Screen Neg (NEG) Urine Cocaine Screen Neg (NEG) Urine Cannabinoids Screen Neg (NEG) Urine Ethyl Alcohol Neg (NEG) VTE Prophylaxis Ordered VTE Prophylaxis Devices: Yes VTE Pharmacological Prophylaxi: Yes Assessment/Plan Assessment/Plan Chest pain/chest palpitations with sinus tachycardia 133 Prolonged corrected QT-50 ms on EKG strip Mild hyponatremia - Na 133 Hypomagnesemia - mag 1.7 Hypercalcemia 10.4 from dehydration Elevated lactate - 2.4 presumably from dehydration Anion gap 15 from dehydration History SRIDEVI/BSO Occasional drinker History of breast cancer 2009, history uterine cancer 2003-status post DELIA BSO Fibromyalgia Borderline diabetic on OHA Peripheral neuropathy from chemotherapy 2000 she claims Chronic narcotic dependence Obesity BMI 41 Hx hidradenitis suppurativa rectum status post surger years ago Plan: Hook to telemetry, cards consult regarding the chest pain and prolonged QT I have reconciled home meds Regular diet Replace magnesium 1 g 1 Hydrate and recheck hypercalcemia and lactate tomorrow Seen at ER Full code ADDISON NEVAREZ MD February 05, 2019 18:54
[2019-02-05] MEDS ORDERED: cefTRIAXone IV Push 1 GM VIAL. IVP ONE (19:00)
[2019-02-05] MEDS ORDERED: traZODone 100 MG TABLET. PO PRN (19:00)
[2019-02-05] MEDS ORDERED: ONDANSETRON PF 4 MG/2 ML VIAL. IV PRN (19:00)
[2019-02-05] MEDS ORDERED: MAGNESIUM SULFATE 1GM 100 ML IV ONE (19:15)
[2019-02-05 20:36] VITALS: BP 117/66
[2019-02-05] MEDS: CYCLOBENZAPRINE 10 MG TABLET. PO SCH ×2 (21:00→21:32)
[2019-02-05] MEDS: GABAPENTIN 400 MG CAPSULE. PO SCH (21:31)
[2019-02-05] MEDS: oxyCODONE/APAP 10/325 1 TAB TABLET PO SCH (21:31)
[2019-02-05] MEDS: fentaNYL PF VIAL 100 MCG/2 ML VIAL IV PRN (21:34)
[2019-02-05 22:48] VITALS: BP 103/59
--- NOTE | 2019-02-06 00:19 | NUR ---
Patient arrived at 2030 from ER. Medications restarted and reviewed orders and educated patient.
[2019-02-06] MEDS: fentaNYL PF VIAL 100 MCG/2 ML VIAL IV PRN ×4 (00:29→17:23)
[2019-02-06] MEDS ORDERED: CYCLOBENZAPRINE 10 MG TABLET. PO ONE (00:30)
--- NOTE | 2019-02-06 01:20 | RAD ---
AP portable chest radiograph 02/05/2019 Clinical History: Fever. An AP erect portable digital radiograph of the chest was obtained. Comparison study is dated 09/21/2016. The cardiac and mediastinal silhouettes are within normal limits in size and configuration. Elevation of the right hemidiaphragm is again seen. No acute pulmonary infiltrate is noted. Surgical clips overlie the left lower chest. No pneumothorax or pleural effusion is noted. Mild degenerative changes are seen involving the thoracic spine. Impression: No acute abnormality is seen. Electronically signed by: Mike Higgins MD (02/06/2019 1:17 AM) [facility]
[2019-02-06 03:40] VITALS: BP 100/47
[2019-02-06] MEDS: IV NORMAL SALINE 1000ML BAG 1,000 ML IV SCH ×2 (05:28→05:30)
[2019-02-06] MEDS: oxyCODONE/APAP 10/325 1 TAB TABLET PO SCH ×2 (05:30→14:00)
--- NOTE | 2019-02-06 06:58 | EKG ---
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
[2019-02-06 07:00] VITALS: BP 107/61
[2019-02-06 07:29] LABS: BASO % 0 % (0-3); CALCIUM 9.5 mg/dL (8.5-10.1); CREATININE 0.8 mg/dL (0.6-1.0); EOS # 0.1 x10^3/uL (0.0-0.7); EOS % 2 % (0-3); GFR 92.2; HEMATOCRIT 38.6 % (36.0-47.0); HEMOGLOBIN 12.8 g/dL (12.0-15.5); LYMPH # 2.5 x10^3/uL (1.0-4.8); LYMPH % 43 % (24-48); MAGNESIUM 1.9 mg/dL (1.8-2.4); MEAN CORPUSCULAR HEMOGLOBIN 28 pg (25-35); MEAN CORPUSCULAR HGB CONC 33 g/dL (31-37); MEAN CORPUSCULAR VOLUME 84 fL (79-100); MONO # 0.6 x10^3/uL (0.0-1.1); MONO % 10 % (0-9); NEUT # 2.5 x10^3uL (1.8-7.7); NEUT % 44 % (31-73); PLATELET COUNT 282 x10^3/uL (140-400); RED BLOOD COUNT 4.57 x10^6/uL (3.50-5.40); WHITE BLOOD COUNT 5.7 x10^3/uL (4.0-11.0)
[2019-02-06] MEDS ORDERED: PANTOPRAZOLE 40 MG TABLET.DR. PO SCH (07:30)
--- NOTE | 2019-02-06 07:54 | PDOC ---
PROGRESS NOTES Chief Complaint Chief Complaint Acute left sciatica Chest discomfort Constipation Dizziness Amphetamine use Tachycardia Borderline diabetes Fibromyalgia Peripheral neuropathy from chemotherapy 2000 Past surgical history [facility]BS[facility] History of Present Illness History of Present Illness Ms Ham is a 48-year-old -Irish female with BMI 41, history of hydradenitis suppurativa in the rectal area needing surgery in the past. She comes in with dizziness, lightheadedness but stable VS except for sinus tachycardia 133 via EMS with prolonged QT 50s via EMS strip that I have personally reviewed. Then she tells me about palpitations or chest discomfort or some weird feeling in her mid sternal/epigastric area. No known CAD personal hx, NOn smoker, non drinker, Mag slightly low 1.7. Calcium slightly high 10.4. Lactate 2.4. She admits she is dehydrated has not been drinking lately. She knows by memory all her medications namely: gabapentin 1200mgs 3 times a day, Flexeril 10mgs when necessary Metformin 500 twice a day but she increased to 1000 twice a day without her MD knowledge because she did not like her recent A1c, Wellbutrin 300mgs daily Cymbalta 120mgs daily at bedtime, Adderall 40 mg once a day, trazodone 100 when necessary. She requests for IV narcotics. Admitted for elevated lactate, unclear source, clean UA. CT head is negative. Chest x-rays negative Sinus tachycardia with prolonged QT and some electric abnormalities namely hypercalcemia and hypomagnesemia. Echo read as normal. troponin negative. She is amenable to discharge with magnesium, riboflavin, prednisone taper, doxycycline for cellulitis and acyclovir for herpes outbreak Vitals Vitals Vital Signs Date Time Temp Pulse Resp B/P (MAP) Pulse Ox O2 Delivery O2 Flow Rate FiO2 02/06/19 06:39 Room Air 02/06/19 03:40 98.3 93 19 100/47 (64) 96 98.3 Physical Exam General: Alert, Oriented X3, Cooperative, No acute distress Lungs: Clear Abdomen: Normal bowel sounds, Soft, No tenderness, No hepatosplenomegaly, No masses Extremities: No clubbing, No cyanosis, No edema, Normal pulses, No tenderness/swelling Skin: No rashes, No breakdown, No significant lesion Labs LABS Laboratory Tests Test 02/05/19 17:00 02/05/19 17:55 02/05/19 20:15 02/06/19 06:08 White Blood Count 6.2 x10^3/uL (4.0-11.0) 5.7 x10^3/uL (4.0-11.0) Red Blood Count 4.95 x10^6/uL (3.50-5.40) 4.57 x10^6/uL (3.50-5.40) Hemoglobin 13.6 g/dL (12.0-15.5) 12.8 g/dL (12.0-15.5) Hematocrit 41.0 % (36.0-47.0) 38.6 % (36.0-47.0) Mean Corpuscular Volume 83 fL (79-100) 84 fL (79-100) Mean Corpuscular Hemoglobin 27 pg (25-35) 28 pg (25-35) Mean Corpuscular Hemoglobin Concent 33 g/dL (31-37) 33 g/dL (31-37) Red Cell Distribution Width 14.2 % (11.5-14.5) 14.0 % (11.5-14.5) Platelet Count 317 x10^3/uL (140-400) 282 x10^3/uL (140-400) Neutrophils (%) (Auto) 56 % (31-73) 44 % (31-73) Lymphocytes (%) (Auto) 31 % (24-48) 43 % (24-48) Monocytes (%) (Auto) 11 % (0-9) 10 % (0-9) Eosinophils (%) (Auto) 1 % (0-3) 2 % (0-3) Basophils (%) (Auto) 0 % (0-3) 0 % (0-3) Neutrophils # (Auto) 3.5 x10^3uL (1.8-7.7) 2.5 x10^3uL (1.8-7.7) Lymphocytes # (Auto) 1.9 x10^3/uL (1.0-4.8) 2.5 x10^3/uL (1.0-4.8) Monocytes # (Auto) 0.7 x10^3/uL (0.0-1.1) 0.6 x10^3/uL (0.0-1.1) Eosinophils # (Auto) 0.1 x10^3/uL (0.0-0.7) 0.1 x10^3/uL (0.0-0.7) Basophils # (Auto) 0.0 x10^3/uL (0.0-0.2) 0.0 x10^3/uL (0.0-0.2) Prothrombin Time 13.7 SEC (11.7-14.0) Prothromb Time International Ratio 1.1 (0.8-1.1) D-Dimer (Lluvia) 0.39 ug/mlFEU (0.00-0.50) Sodium Level 141 mmol/L (136-145) 141 mmol/L (136-145) Potassium Level 4.0 mmol/L (3.5-5.1) 4.0 mmol/L (3.5-5.1) Chloride Level 101 mmol/L (98-107) 105 mmol/L (98-107) Carbon Dioxide Level 25 mmol/L (21-32) 23 mmol/L (21-32) Anion Gap 15 (6-14) 13 (6-14) Blood Urea Nitrogen 13 mg/dL (7-20) 13 mg/dL (7-20) Creatinine 1.0 mg/dL (0.6-1.0) 0.8 mg/dL (0.6-1.0) Estimated GFR (Cockcroft-Gault) 71.3 92.2 BUN/Creatinine Ratio 13 (6-20) Glucose Level 125 mg/dL (70-99) 134 mg/dL (70-99) Lactic Acid Level 2.4 mmol/L (0.4-2.0) 1.7 mmol/L (0.4-2.0) 1.5 mmol/L (0.4-2.0) Calcium Level 10.4 mg/dL (8.5-10.1) 9.5 mg/dL (8.5-10.1) Magnesium Level 1.7 mg/dL (1.8-2.4) 1.9 mg/dL (1.8-2.4) Total Bilirubin 0.4 mg/dL (0.2-1.0) Aspartate Amino Transf (AST/SGOT) 15 U/L (15-37) Alanine Aminotransferase (ALT/SGPT) 22 U/L (14-59) Alkaline Phosphatase 60 U/L (46-116) Creatine Kinase 61 U/L (26-192) Creatine Kinase MB (Mass) < 0.5 ng/mL (0.0-3.6) Creatine Kinase MB Relative Index % (0-4) Troponin I Quantitative < 0.017 ng/mL (0.000-0.055) MR-Xqh-[id number]-Type Natriuretic Peptide 18 pg/mL (0-124) Total Protein 7.6 g/dL (6.4-8.2) Albumin 4.1 g/dL (3.4-5.0) Albumin/Globulin Ratio 1.2 (1.0-1.7) Lipase 118 U/L (73-393) Procalcitonin < 0.10 ng/mL (0.00-0.10) Thyroid Stimulating Hormone (TSH) 0.494 uIU/mL (0.358-3.74) Urine Collection Type Unknown Urine Color Yellow Urine Clarity Clear Urine pH 5.5 Urine Specific [place] 1.020 Urine Protein Negative mg/dL (NEG-TRACE) Urine Glucose (UA) Negative mg/dL (NEG) Urine Ketones (Stick) Trace mg/dL (NEG) Urine Blood Negative (NEG) Urine Nitrite Negative (NEG) Urine Bilirubin Small (NEG) Urine Urobilinogen Dipstick 1.0 mg/dL (0.2 mg/dL) Urine Leukocyte Esterase Negative (NEG) Urine RBC Rare /HPF (0-2) Urine WBC 1-4 /HPF (0-4) Urine Squamous Epithelial Cells Many /LPF Urine Amorphous Sediment Present /HPF Urine Bacteria Few /HPF (0-FEW) Urine Hyaline Casts Few /HPF Urine Mucus Marked /LPF Urine Opiates Screen Neg (NEG) Urine Methadone Screen Neg (NEG) Urine Barbiturates Neg (NEG) Urine Phencyclidine Screen Neg (NEG) Urine Amphetamine/Methamphetamine Pos (NEG) Urine Benzodiazepines Screen Neg (NEG) Urine Cocaine Screen Neg (NEG) Urine Cannabinoids Screen Neg (NEG) Urine Ethyl Alcohol Neg (NEG) Assessment and Plan Assessmemt and Plan Problems Medical Problems: (1) Dizziness Status: Acute (2) Lightheadedness Status: Acute (3) Methamphetamine use Status: Acute (4) Tachycardia Status: Acute Comment Review of Relevant I have reviewed the following items susy (where applicable) has been applied. Labs Laboratory Tests Test 02/05/19 17:00 02/05/19 17:55 02/05/19 20:15 02/06/19 06:08 White Blood Count 6.2 x10^3/uL (4.0-11.0) 5.7 x10^3/uL (4.0-11.0) Red Blood Count 4.95 x10^6/uL (3.50-5.40) 4.57 x10^6/uL (3.50-5.40) Hemoglobin 13.6 g/dL (12.0-15.5) 12.8 g/dL (12.0-15.5) Hematocrit 41.0 % (36.0-47.0) 38.6 % (36.0-47.0) Mean Corpuscular Volume 83 fL (79-100) 84 fL (79-100) Mean Corpuscular Hemoglobin 27 pg (25-35) 28 pg (25-35) Mean Corpuscular Hemoglobin Concent 33 g/dL (31-37) 33 g/dL (31-37) Red Cell Distribution Width 14.2 % (11.5-14.5) 14.0 % (11.5-14.5) Platelet Count 317 x10^3/uL (140-400) 282 x10^3/uL (140-400) Neutrophils (%) (Auto) 56 % (31-73) 44 % (31-73) Lymphocytes (%) (Auto) 31 % (24-48) 43 % (24-48) Monocytes (%) (Auto) 11 % (0-9) 10 % (0-9) Eosinophils (%) (Auto) 1 % (0-3) 2 % (0-3) Basophils (%) (Auto) 0 % (0-3) 0 % (0-3) Neutrophils # (Auto) 3.5 x10^3uL (1.8-7.7) 2.5 x10^3uL (1.8-7.7) Lymphocytes # (Auto) 1.9 x10^3/uL (1.0-4.8) 2.5 x10^3/uL (1.0-4.8) Monocytes # (Auto) 0.7 x10^3/uL (0.0-1.1) 0.6 x10^3/uL (0.0-1.1) Eosinophils # (Auto) 0.1 x10^3/uL (0.0-0.7) 0.1 x10^3/uL (0.0-0.7) Basophils # (Auto) 0.0 x10^3/uL (0.0-0.2) 0.0 x10^3/uL (0.0-0.2) Prothrombin Time 13.7 SEC (11.7-14.0) Prothromb Time International Ratio 1.1 (0.8-1.1) D-Dimer (Lluvia) 0.39 ug/mlFEU (0.00-0.50) Sodium Level 141 mmol/L (136-145) 141 mmol/L (136-145) Potassium Level 4.0 mmol/L (3.5-5.1) 4.0 mmol/L (3.5-5.1) Chloride Level 101 mmol/L (98-107) 105 mmol/L (98-107) Carbon Dioxide Level 25 mmol/L (21-32) 23 mmol/L (21-32) Anion Gap 15 (6-14) 13 (6-14) Blood Urea Nitrogen 13 mg/dL (7-20) 13 mg/dL (7-20) Creatinine 1.0 mg/dL (0.6-1.0) 0.8 mg/dL (0.6-1.0) Estimated GFR (Cockcroft-Gault) 71.3 92.2 BUN/Creatinine Ratio 13 (6-20) Glucose Level 125 mg/dL (70-99) 134 mg/dL (70-99) Lactic Acid Level 2.4 mmol/L (0.4-2.0) 1.7 mmol/L (0.4-2.0) 1.5 mmol/L (0.4-2.0) Calcium Level 10.4 mg/dL (8.5-10.1) 9.5 mg/dL (8.5-10.1) Magnesium Level 1.7 mg/dL (1.8-2.4) 1.9 mg/dL (1.8-2.4) Total Bilirubin 0.4 mg/dL (0.2-1.0) Aspartate Amino Transf (AST/SGOT) 15 U/L (15-37) Alanine Aminotransferase (ALT/SGPT) 22 U/L (14-59) Alkaline Phosphatase 60 U/L (46-116) Creatine Kinase 61 U/L (26-192) Creatine Kinase MB (Mass) < 0.5 ng/mL (0.0-3.6) Creatine Kinase MB Relative Index % (0-4) Troponin I Quantitative < 0.017 ng/mL (0.000-0.055) AM-Xzn-M-Type Natriuretic Peptide 18 pg/mL (0-124) Total Protein 7.6 g/dL (6.4-8.2) Albumin 4.1 g/dL (3.4-5.0) Albumin/Globulin Ratio 1.2 (1.0-1.7) Lipase 118 U/L (73-393) Procalcitonin < 0.10 ng/mL (0.00-0.10) Thyroid Stimulating Hormone (TSH) 0.494 uIU/mL (0.358-3.74) Urine Collection Type Unknown Urine Color Yellow Urine Clarity Clear Urine pH 5.5 Urine Specific [place] 1.020 Urine Protein Negative mg/dL (NEG-TRACE) Urine Glucose (UA) Negative mg/dL (NEG) Urine Ketones (Stick) Trace mg/dL (NEG) Urine Blood Negative (NEG) Urine Nitrite Negative (NEG) Urine Bilirubin Small (NEG) Urine Urobilinogen Dipstick 1.0 mg/dL (0.2 mg/dL) Urine Leukocyte Esterase Negative (NEG) Urine RBC Rare /HPF (0-2) Urine WBC 1-4 /HPF (0-4) Urine Squamous Epithelial Cells Many /LPF Urine Amorphous Sediment Present /HPF Urine Bacteria Few /HPF (0-FEW) Urine Hyaline Casts Few /HPF Urine Mucus Marked /LPF Urine Opiates Screen Neg (NEG) Urine Methadone Screen Neg (NEG) Urine Barbiturates Neg (NEG) Urine Phencyclidine Screen Neg (NEG) Urine Amphetamine/Methamphetamine Pos (NEG) Urine Benzodiazepines Screen Neg (NEG) Urine Cocaine Screen Neg (NEG) Urine Cannabinoids Screen Neg (NEG) Urine Ethyl Alcohol Neg (NEG) Laboratory Tests Test 02/05/19 17:00 02/05/19 17:55 02/05/19 20:15 02/06/19 06:08 White Blood Count 6.2 x10^3/uL (4.0-11.0) 5.7 x10^3/uL (4.0-11.0) Red Blood Count 4.95 x10^6/uL (3.50-5.40) 4.57 x10^6/uL (3.50-5.40) Hemoglobin 13.6 g/dL (12.0-15.5) 12.8 g/dL (12.0-15.5) Hematocrit 41.0 % (36.0-47.0) 38.6 % (36.0-47.0) Mean Corpuscular Volume 83 fL (79-100) 84 fL (79-100) Mean Corpuscular Hemoglobin 27 pg (25-35) 28 pg (25-35) Mean Corpuscular Hemoglobin Concent 33 g/dL (31-37) 33 g/dL (31-37) Red Cell Distribution Width 14.2 % (11.5-14.5) 14.0 % (11.5-14.5) Platelet Count 317 x10^3/uL (140-400) 282 x10^3/uL (140-400) Neutrophils (%) (Auto) 56 % (31-73) 44 % (31-73) Lymphocytes (%) (Auto) 31 % (24-48) 43 % (24-48) Monocytes (%) (Auto) 11 % (0-9) 10 % (0-9) Eosinophils (%) (Auto) 1 % (0-3) 2 % (0-3) Basophils (%) (Auto) 0 % (0-3) 0 % (0-3) Neutrophils # (Auto) 3.5 x10^3uL (1.8-7.7) 2.5 x10^3uL (1.8-7.7) Lymphocytes # (Auto) 1.9 x10^3/uL (1.0-4.8) 2.5 x10^3/uL (1.0-4.8) Monocytes # (Auto) 0.7 x10^3/uL (0.0-1.1) 0.6 x10^3/uL (0.0-1.1) Eosinophils # (Auto) 0.1 x10^3/uL (0.0-0.7) 0.1 x10^3/uL (0.0-0.7) Basophils # (Auto) 0.0 x10^3/uL (0.0-0.2) 0.0 x10^3/uL (0.0-0.2) Prothrombin Time 13.7 SEC (11.7-14.0) Prothromb Time International Ratio 1.1 (0.8-1.1) D-Dimer (Lluvia) 0.39 ug/mlFEU (0.00-0.50) Sodium Level 141 mmol/L (136-145) 141 mmol/L (136-145) Potassium Level 4.0 mmol/L (3.5-5.1) 4.0 mmol/L (3.5-5.1) Chloride Level 101 mmol/L (98-107) 105 mmol/L (98-107) Carbon Dioxide Level 25 mmol/L (21-32) 23 mmol/L (21-32) Anion Gap 15 (6-14) 13 (6-14) Blood Urea Nitrogen 13 mg/dL (7-20) 13 mg/dL (7-20) Creatinine 1.0 mg/dL (0.6-1.0) 0.8 mg/dL (0.6-1.0) Estimated GFR (Cockcroft-Gault) 71.3 92.2 BUN/Creatinine Ratio 13 (6-20) Glucose Level 125 mg/dL (70-99) 134 mg/dL (70-99) Lactic Acid Level 2.4 mmol/L (0.4-2.0) 1.7 mmol/L (0.4-2.0) 1.5 mmol/L (0.4-2.0) Calcium Level 10.4 mg/dL (8.5-10.1) 9.5 mg/dL (8.5-10.1) Magnesium Level 1.7 mg/dL (1.8-2.4) 1.9 mg/dL (1.8-2.4) Total Bilirubin 0.4 mg/dL (0.2-1.0) Aspartate Amino Transf (AST/SGOT) 15 U/L (15-37) Alanine Aminotransferase (ALT/SGPT) 22 U/L (14-59) Alkaline Phosphatase 60 U/L (46-116) Creatine Kinase 61 U/L (26-192) Creatine Kinase MB (Mass) < 0.5 ng/mL (0.0-3.6) Creatine Kinase MB Relative Index % (0-4) Troponin I Quantitative < 0.017 ng/mL (0.000-0.055) [id number]-[id number]-J-Type Natriuretic Peptide 18 pg/mL (0-124) Total Protein 7.6 g/dL (6.4-8.2) Albumin 4.1 g/dL (3.4-5.0) Albumin/Globulin Ratio 1.2 (1.0-1.7) Lipase 118 U/L (73-393) Procalcitonin < 0.10 ng/mL (0.00-0.10) Thyroid Stimulating Hormone (TSH) 0.494 uIU/mL (0.358-3.74) Urine Collection Type Unknown Urine Color Yellow Urine Clarity Clear Urine pH 5.5 Urine Specific [place] 1.020 Urine Protein Negative mg/dL (NEG-TRACE) Urine Glucose (UA) Negative mg/dL (NEG) Urine Ketones (Stick) Trace mg/dL (NEG) Urine Blood Negative (NEG) Urine Nitrite Negative (NEG) Urine Bilirubin Small (NEG) Urine Urobilinogen Dipstick 1.0 mg/dL (0.2 mg/dL) Urine Leukocyte Esterase Negative (NEG) Urine RBC Rare /HPF (0-2) Urine WBC 1-4 /HPF (0-4) Urine Squamous Epithelial Cells Many /LPF Urine Amorphous Sediment Present /HPF Urine Bacteria Few /HPF (0-FEW) Urine Hyaline Casts Few /HPF Urine Mucus Marked /LPF Urine Opiates Screen Neg (NEG) Urine Methadone Screen Neg (NEG) Urine Barbiturates Neg (NEG) Urine Phencyclidine Screen Neg (NEG) Urine Amphetamine/Methamphetamine Pos (NEG) Urine Benzodiazepines Screen Neg (NEG) Urine Cocaine Screen Neg (NEG) Urine Cannabinoids Screen Neg (NEG) Urine Ethyl Alcohol Neg (NEG) Medications Current Medications Sodium Chloride 1,000 ml @ 1,000 mls/hr 1X ONCE IV Last administered on 02/05/19at 18:51; Start 02/05/19 at 16:30; Stop 02/05/19 at 17:29; Status DC Ibuprofen (Motrin) 600 mg 1X ONCE PO ; Start 02/05/19 at 16:30; Stop 02/05/19 at 16:31; Status DC Magnesium Sulfate/ Dextrose 100 ml @ 100 mls/hr 1X ONCE IV Last administered on 02/05/19 19:29; Start 02/05/19 at 19:15; Stop 02/05/19 at 20:14; Status DC Sodium Chloride 1,000 ml @ 100 mls/hr Q10H IV Last administered on 02/06/19at 05:28; Start 02/05/19 at 19:30 Cyclobenzaprine HCl (Flexeril) 10 mg TID PO ; Start 02/05/19 at 21:00 Oxycodone/ Acetaminophen (Percocet 10/325) 1 tab Q8HRS PO Last administered on 02/06/19 05:30; Start 02/05/19 at 22:00 Pantoprazole Sodium (Protonix) 40 mg DAILYAC PO ; Start 02/06/19 at 07:30 Gabapentin (Neurontin) 1,200 mg TID PO Last administered on 02/05/19at 21:31; Start 02/05/19 at 21:00 Duloxetine HCl (Cymbalta) 120 mg DAILY PO ; Start 02/06/19 at 09:00 Metformin HCl (Glucophage) 1,000 mg BIDWMEALS PO ; Start 02/06/19 at 08:00 Trazodone HCl (Desyrel) 100 mg PRN QHS PRN PO INSOMNIA Last administered on 02/05/19at 21:32; Start 02/05/19 at 19:00 Bupropion HCl (Wellbutrin Sr) 300 mg DAILY PO ; Start 02/06/19 at 09:00 Fentanyl Citrate (Fentanyl 2ml Vial) 25 mcg PRN Q2HR PRN IV PAIN Last administered on 02/06/19at 06:39; Start 02/05/19 at 19:00 Ondansetron HCl (Zofran) 4 mg PRN Q8HRS PRN IV NAUSEA/VOMITING; Start 02/05/19 at 19:00; Stop 02/06/19 at 18:59 Sodium Chloride 1,000 ml @ 125 mls/hr 1X ONCE IV Last administered on 02/05/19at 21:30; Start 02/05/19 at 19:00; Stop 02/06/19 at 02:59; Status DC Ceftriaxone Sodium (Rocephin) 1 gm 1X ONCE IVP Last administered on 02/05/19at 19:22; Start 02/05/19 at 19:00; Stop 02/05/19 at 19:02; Status DC Cyclobenzaprine HCl (Flexeril) 10 mg 1X ONCE PO Last administered on 02/06/19at 00:29; Start 02/06/19 at 00:30; Stop 02/06/19 at 00:31; Status DC Active Scripts Active Medrol (Methylprednisolone) 4 Mg Tab.ds.pk 1 Pkg PO UD Percocet 10-325 Mg Tablet (Oxycodone/Acetaminophen) 1 Each Tablet 1 Tab PO Q8HRS DO NOT FILL THIS RX IF SHE HAS FILLED ANY NARCOTICS IN THE LAST SEVEN DAYS MUST FILL CLINDMYCIN PRIOR TO OYXCODONE Clindamycin Hcl 150 Mg Capsule 3 Cap PO TID Morphine Sulfate 15 Mg Tablet 1 Tab PO QID PRN Ms Contin (Morphine Sulfate) 30 Mg Tablet.er 0.5 Tab PO BID Ketorolac Tromethamine 10 Mg Tablet 1 Tab PO PRN Q6HRS Reported Diclofenac Sodium 75 Mg Tablet. Neurontin (Gabapentin) 800 Mg Tablet 800 Mg PO TID Lidocaine 700 Mg Adh..patch Lamotrigine 100 Mg Tablet Duloxetine Hcl 60 Mg Capsule. Metformin Hcl Er (Metformin Hcl) 500 Mg Tab.er.24h Pantoprazole Sodium 40 Mg Tablet. Buspirone Hcl 30 Mg Tablet Amphetamine Salts 20 Mg Tablet (Dextroamphetamine/Amphetamine) 20 Mg Tablet Valacyclovir (Valacyclovir Hcl) 500 Mg Tablet Fluticasone Propionate Nasal [place] (Fluticasone Propionate) 16 Gm [place].susp Cyclobenzaprine Hcl 10 Mg Tablet 1 Tab PO TID [place] Allergy (Fexofenadine Hcl) 180 Mg Tablet 180 Mg PO DAILY [place] 10-325 Tablet (Acetaminophen/Hydrocodone Bitart) 1 Each Tablet 2 Tab PO Q4HRS PRN Omeprazole 40 Mg Capsule. 40 Mg PO BID Soma (Carisoprodol) 350 Mg Tablet 1 Tab PO TID Ibuprofen 400 Mg Tablet 600 Mg PO TID Paxil (Paroxetine Hcl) 30 Mg Tablet 60 Mg PO DAILY Gabapentin 600 Mg Tablet 1,200 Mg PO TID Vitals/I & O Vital Sign - Last 24 Hours 02/05/19 02/05/19 02/05/19 02/05/19 15:45 16:30 17:30 18:30 Temp 99.3 99.3 Pulse 122 118 112 110 Resp 20 22 20 22 B/P (MAP) 146/71 (96) Pulse Ox 100 100 100 100 O2 Delivery Room Air 02/05/19 02/05/19 02/05/19 02/05/19 19:30 20:36 21:31 21:34 Temp 98.7 98.7 Pulse 103 111 Resp 22 16 B/P (MAP) 117/66 (83) Pulse Ox 100 98 O2 Delivery Room Air Room Air Room Air 02/05/19 02/05/19 02/06/19 02/06/19 22:48 23:24 00:29 00:59 Temp 98.3 98.3 Pulse 111 Resp 16 B/P (MAP) 103/59 (74) Pulse Ox 95 O2 Delivery Room Air Room Air Room Air Room Air 02/06/19 02/06/19 02/06/19 02/06/19 03:40 05:30 06:38 06:39 Temp 98.3 98.3 Pulse 93 Resp 19 B/P (MAP) 100/47 (64) Pulse Ox 96 O2 Delivery Room Air Room Air Room Air Room Air Intake and Output 02/05/19 02/05/19 02/06/19 14:59 22:59 06:59 Intake Total 1100 ml 1673 ml Output Total 625 ml Balance 1100 ml 1048 ml ZEKE THURMAN MD February 06, 2019 07:54
[2019-02-06] MEDS ORDERED: MAGNESIUM SULFATE 1GM 100 ML IV ONE (08:30)
[2019-02-06] MEDS ORDERED: MORPHINE SULFATE 4 MG/ML VIAL. IV PRN (08:30)
--- NOTE | 2019-02-06 08:49 | NUR ---
IP: Pt has a hx of + mrsa since 2014. Pt to be in contact precautions until there are 2 negative screens 7 days apart.
[2019-02-06] MEDS ORDERED: DULoxetine HCL 30 MG CAPSULE.DR PO SCH (09:00)
[2019-02-06] MEDS ORDERED: buPROPion SR 150 MG TABLET.SA PO SCH (09:00)
[2019-02-06 11:00] VITALS: BP 127/72
--- NOTE | 2019-02-06 11:13 | EKG ---
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
--- NOTE | 2019-02-06 11:28 | PDOC2 ---
CARDIAC CONSULT DATE OF CONSULT Date of Consult DATE: 02/06/19 TIME: 11:20 REASON FOR CONSULT Reason for Consult: Sinus tach prolonged QT CP REFERRING PHYSICIAN Referring Physician: Dr. Kelly SOURCE Source: Chart review, Patient HISTORY OF PRESENT ILLNESS HISTORY OF PRESENT ILLNESS This is a 48 yo female who presented secondary to "delayed effect in lower heart chamber" that was associated with dizziness upon standing and shortness of breath. Symptoms have been present since Sunday so she decided to come to the ED for further evaluation and treatment. Does report history of tachycardia and underwent echocardiogram and stress test at [facility] a couple of year. No knowledge of abnormal findings with this. No palpitations, diaphoresis, or nausea/vomiting. Is on Adderall at home. Also has chronic pain and neuropathy on high-dose oxycodone and gabapentin. Reports increased pain recently that has "interrupted her eating". PAST MEDICAL HISTORY Cardiovascular: HTN (prior to weight loss) Pulmonary: Other (no pertinent hx) CENTRAL NERVOUS SYSTEM: Periperal neuropathy GI: GERD Heme/Onc: Cancer (breats, uterine) Hepatobiliary: Other (fatty liver) Psych: Anxiety, Depression, Other (PTSD) Musculoskeletal: low back pain Rheumatologic: Fibromyalgia Infectious disease: No pertinent hx ENT: No pertinent hx Renal/: No pertinent hx Endocrine: Diabetes Dermatology: No pertinent hx PAST SURGICAL HISTORY Past Surgical History: Hysterectomy, Other (mastectomy, left knee surgery, gastric sleeve) FAMILY HISTORY Family History: Cancer (breast) SOCIAL HISTORY Smoke: No ALCOHOL: occassional Drugs: None Lives: Alone CURRENT MEDICATIONS CURRENT MEDICATIONS Current Medications Medications (Trade) Dose Ordered Sig/[place] Route PRN Reason Start Time Stop Time Status Last Admin Dose Admin Sodium Chloride 1,000 ml @ 1,000 mls/hr 1X ONCE IV 02/05/19 16:30 02/05/19 17:29 DC 02/05/19 18:51 Magnesium Sulfate/ Dextrose 100 ml @ 100 mls/hr 1X ONCE IV 02/05/19 19:15 02/05/19 20:14 DC 02/05/19 19:29 Sodium Chloride 1,000 ml @ 100 mls/hr Q10H IV 02/05/19 19:30 02/06/19 05:28 Oxycodone/ Acetaminophen (Percocet 10/325) 1 tab Q8HRS PO 02/05/19 22:00 02/06/19 05:30 Gabapentin (Neurontin) 1,200 mg TID PO 02/05/19 21:00 02/05/19 21:31 Trazodone HCl (Desyrel) 100 mg PRN QHS PRN PO INSOMNIA 02/05/19 19:00 02/05/19 21:32 Fentanyl Citrate (Fentanyl 2ml Vial) 25 mcg PRN Q2HR PRN IV PAIN 02/05/19 19:00 02/06/19 06:39 Sodium Chloride 1,000 ml @ 125 mls/hr 1X ONCE IV 02/05/19 19:00 02/06/19 02:59 DC 02/05/19 21:30 Ceftriaxone Sodium (Rocephin) 1 gm 1X ONCE IVP 02/05/19 19:00 02/05/19 19:02 DC 02/05/19 19:22 Cyclobenzaprine HCl (Flexeril) 10 mg 1X ONCE PO 02/06/19 00:30 02/06/19 00:31 DC 02/06/19 00:29 Magnesium Sulfate/ Dextrose 100 ml @ 100 mls/hr 1X ONCE IV 02/06/19 08:30 02/06/19 09:29 DC 02/06/19 08:47 Morphine Sulfate (Morphine Sulfate) 4 mg PRN Q3HRS PRN IV PAIN SEVERE 02/06/19 08:30 02/06/19 08:46 ALLERGIES ALLERGIES: Coded Allergies: Sulfa (Sulfonamide Antibiotics) (Verified Allergy, Intermediate, Itching, 02/05/19) hydrocodone (Verified Allergy, Intermediate, Itching, 02/05/19) sulfamethoxazole (Verified Allergy, Intermediate, itching, 06/27/16) trimethoprim (Verified Allergy, Intermediate, itching, 06/27/16) I S O L A T I O N *CONTACT* (Verified Allergy, Unknown, 08/25/15) mrsa + ROS Review of System 14 point ROS conducted with pertinent positives noted above in HPI PHYSICAL EXAM General: Alert, Oriented X3, Cooperative, No acute distress HEENT: Atraumatic, Mucous membr. moist/pink Lungs: Clear to auscultation Heart: Regular rate, Normal S1, Normal S2 Abdomen: Normal bowel sounds, No tenderness Extremities: No edema, Normal pulses Skin: No significant lesion Neuro: Normal speech, Normal tone Psych/Mental Status: Other (anxious ) MUSCULOSKELETAL: No deformity VITALS VITALS Vital Signs Date Time Temp Pulse Resp B/P (MAP) Pulse Ox O2 Delivery O2 Flow Rate FiO2 02/06/19 11:00 98.9 99 18 127/72 (90) 97 Room Air 98.9 LABS Lab: Laboratory Tests Test 02/05/19 17:00 02/05/19 17:55 02/05/19 20:15 02/06/19 06:08 White Blood Count 6.2 x10^3/uL (4.0-11.0) 5.7 x10^3/uL (4.0-11.0) Red Blood Count 4.95 x10^6/uL (3.50-5.40) 4.57 x10^6/uL (3.50-5.40) Hemoglobin 13.6 g/dL (12.0-15.5) 12.8 g/dL (12.0-15.5) Hematocrit 41.0 % (36.0-47.0) 38.6 % (36.0-47.0) Mean Corpuscular Volume 83 fL (79-100) 84 fL (79-100) Mean Corpuscular Hemoglobin 27 pg (25-35) 28 pg (25-35) Mean Corpuscular Hemoglobin Concent 33 g/dL (31-37) 33 g/dL (31-37) Red Cell Distribution Width 14.2 % (11.5-14.5) 14.0 % (11.5-14.5) Platelet Count 317 x10^3/uL (140-400) 282 x10^3/uL (140-400) Neutrophils (%) (Auto) 56 % (31-73) 44 % (31-73) Lymphocytes (%) (Auto) 31 % (24-48) 43 % (24-48) Monocytes (%) (Auto) 11 % (0-9) 10 % (0-9) Eosinophils (%) (Auto) 1 % (0-3) 2 % (0-3) Basophils (%) (Auto) 0 % (0-3) 0 % (0-3) Neutrophils # (Auto) 3.5 x10^3uL (1.8-7.7) 2.5 x10^3uL (1.8-7.7) Lymphocytes # (Auto) 1.9 x10^3/uL (1.0-4.8) 2.5 x10^3/uL (1.0-4.8) Monocytes # (Auto) 0.7 x10^3/uL (0.0-1.1) 0.6 x10^3/uL (0.0-1.1) Eosinophils # (Auto) 0.1 x10^3/uL (0.0-0.7) 0.1 x10^3/uL (0.0-0.7) Basophils # (Auto) 0.0 x10^3/uL (0.0-0.2) 0.0 x10^3/uL (0.0-0.2) Prothrombin Time 13.7 SEC (11.7-14.0) Prothromb Time International Ratio 1.1 (0.8-1.1) D-Dimer (Lluvia) 0.39 ug/mlFEU (0.00-0.50) Sodium Level 141 mmol/L (136-145) 141 mmol/L (136-145) Potassium Level 4.0 mmol/L (3.5-5.1) 4.0 mmol/L (3.5-5.1) Chloride Level 101 mmol/L (98-107) 105 mmol/L (98-107) Carbon Dioxide Level 25 mmol/L (21-32) 23 mmol/L (21-32) Anion Gap 15 (6-14) 13 (6-14) Blood Urea Nitrogen 13 mg/dL (7-20) 13 mg/dL (7-20) Creatinine 1.0 mg/dL (0.6-1.0) 0.8 mg/dL (0.6-1.0) Estimated GFR (Cockcroft-Gault) 71.3 92.2 BUN/Creatinine Ratio 13 (6-20) Glucose Level 125 mg/dL (70-99) 134 mg/dL (70-99) Lactic Acid Level 2.4 mmol/L (0.4-2.0) 1.7 mmol/L (0.4-2.0) 1.5 mmol/L (0.4-2.0) Calcium Level 10.4 mg/dL (8.5-10.1) 9.5 mg/dL (8.5-10.1) Magnesium Level 1.7 mg/dL (1.8-2.4) 1.9 mg/dL (1.8-2.4) Total Bilirubin 0.4 mg/dL (0.2-1.0) Aspartate Amino Transf (AST/SGOT) 15 U/L (15-37) Alanine Aminotransferase (ALT/SGPT) 22 U/L (14-59) Alkaline Phosphatase 60 U/L (46-116) Creatine Kinase 61 U/L (26-192) Creatine Kinase MB (Mass) < 0.5 ng/mL (0.0-3.6) Creatine Kinase MB Relative Index % (0-4) Troponin I Quantitative < 0.017 ng/mL (0.000-0.055) XU-Slm-Q-Type Natriuretic Peptide 18 pg/mL (0-124) Total Protein 7.6 g/dL (6.4-8.2) Albumin 4.1 g/dL (3.4-5.0) Albumin/Globulin Ratio 1.2 (1.0-1.7) Lipase 118 U/L (73-393) Procalcitonin < 0.10 ng/mL (0.00-0.10) Thyroid Stimulating Hormone (TSH) 0.494 uIU/mL (0.358-3.74) Urine Collection Type Unknown Urine Color Yellow Urine Clarity Clear Urine pH 5.5 Urine Specific [place] 1.020 Urine Protein Negative mg/dL (NEG-TRACE) Urine Glucose (UA) Negative mg/dL (NEG) Urine Ketones (Stick) Trace mg/dL (NEG) Urine Blood Negative (NEG) Urine Nitrite Negative (NEG) Urine Bilirubin Small (NEG) Urine Urobilinogen Dipstick 1.0 mg/dL (0.2 mg/dL) Urine Leukocyte Esterase Negative (NEG) Urine RBC Rare /HPF (0-2) Urine WBC 1-4 /HPF (0-4) Urine Squamous Epithelial Cells Many /LPF Urine Amorphous Sediment Present /HPF Urine Bacteria Few /HPF (0-FEW) Urine Hyaline Casts Few /HPF Urine Mucus Marked /LPF Urine Opiates Screen Neg (NEG) Urine Methadone Screen Neg (NEG) Urine Barbiturates Neg (NEG) Urine Phencyclidine Screen Neg (NEG) Urine Amphetamine/Methamphetamine Pos (NEG) Urine Benzodiazepines Screen Neg (NEG) Urine Cocaine Screen Neg (NEG) Urine Cannabinoids Screen Neg (NEG) Urine Ethyl Alcohol Neg (NEG) ASSESSMENT/PLAN ASSESSMENT/PLAN 1. Tachycardia, sinus. Better with IVF. on Adderall at home 3. Chest pain, atypical. AMI ruled out 3. Dyspnea; NT Pro BNP WNL and CXR without vascular congestion 4. Chronic pain; neuropathy, fibromyalgia 5. Lactic acidosis 6. Hypokalemia; replaced 7. Obesity; s/p gastric sleeve Recommendations Echo to assess LV systolic function TSH Monitor tele Supportive care RAJINDER WELSH APRN February 06, 2019 11:28
[2019-02-06] MEDS: CYCLOBENZAPRINE 10 MG TABLET. PO SCH ×2 (11:41→16:16)
[2019-02-06] MEDS: metFORMIN 500 MG TABLET PO SCH ×2 (11:41→17:23)
[2019-02-06] MEDS: GABAPENTIN 400 MG CAPSULE. PO SCH ×2 (11:41→16:16)
[2019-02-06 12:41] LABS: CHOLESTEROL/HDL RATIO 3.4
--- NOTE | 2019-02-06 14:30 | CARD ---
MR#: [id number] Date of Study: 02/06/2019 Ordering Physician: RAJINDER WELSH, Referring Physician: ADDISON NEVAREZ Tech: Aletha Yost [facility] APPROVED REPORT EXAM: Two-dimensional and M-mode echocardiogram with Doppler and color Doppler. Other Information Quality : Good INDICATION Chest Pain 2D DIMENSIONS RVDd3.4 (2.9-3.5cm)Left Atrium(2D)4.6 (1.6-4.0cm) IVSd1.0 (0.7-1.1cm)Aortic Root(2D)2.9 (2.0-3.7cm) LVDd4.4 (3.9-5.9cm)LVOT Diameter2.2 (1.8-2.4cm) PWd0.9 (0.7-1.1cm)LVDs3.0 (2.5-4.0cm) FS (%) 31.8 %SV53.3 ml LVEF(%)60.1 (>50%) Aortic Valve AoV Peak Taran.135.3cm/sAoV VTI18.8cm AO Peak GR.7.3mmHgLVOT Peak Taran.92.4cm/s LVOT VTI 11.78cmAO Mean GR.4mmHg JOSE (VMAX)2.60th2JJY (VTI)2.43cm2 Tricuspid Valve TR P. [id number]/sRAP [id number] TR Peak Gr.56xfEvCFAY91qqBw Pulmonary Vein S1 Ixbflhig70.2cm/sD2 Yjxxiayk93.9cm/s LEFT VENTRICLE The left ventricle is normal size. There is normal left ventricular wall thickness. The left ventricu lar systolic function is normal and the ejection fraction is within normal range. The Ejection Fracti on is 55-60%. There is normal LV segmental wall motion. Transmitral Doppler flow pattern is Grade I-a bnormal relaxation pattern. RIGHT VENTRICLE The right ventricle is normal size. The right ventricular systolic function is normal. ATRIA The left atrium is mildly dilated. The right atrium size is normal. The interatrial septum is intact with no evidence for an atrial septal defect or patent foramen ovale as noted on 2-D or Doppler imagi ng. AORTIC VALVE The aortic valve is normal in structure and function. Doppler and Color Flow revealed no significant aortic regurgitation. There is no significant aortic valvular stenosis. MITRAL VALVE The mitral valve is calcified but opens well. The mitral valve is moderately thickened. There is no e vidence of mitral valve prolapse. There is no mitral valve stenosis. Doppler and Color-flow revealed trace mitral regurgitation. TRICUSPID VALVE The tricuspid valve is normal in structure and function. Doppler and Color Flow revealed trace tricus pid regurgitation. The PA pressure was estimated at 24 mmHg. There is no tricuspid valve stenosis. PULMONIC VALVE Doppler and Color Flow revealed no pulmonic valvular regurgitation. There is no pulmonic valvular chuck nosis. GREAT VESSELS The aortic root is normal in size. The ascending aorta is normal in size. The IVC is normal in size a nd collapses >50% with inspiration. PERICARDIAL EFFUSION There is no evidence of significant pericardial effusion. Critical Notification Critical Value: No <Conclusion> The left ventricular systolic function is normal and the ejection fraction is within normal range. Th e Ejection Fraction is 55-60%. There is normal LV segmental wall motion. Signed by : Andrei Williamson, Electronically Approved : 02/06/2019 14:29:59
[2019-02-06 15:00] VITALS: BP 115/67
[2019-02-06] MEDS ORDERED: methylPREDNISolone SOD SUCC PF 125 MG/2 ML VIAL. IV ONE (15:15)
[2019-02-06] MEDS ORDERED: DOXY100C14 PO (15:25)
[2019-02-06] MEDS ORDERED: LUBI8CAP4 PO (15:25)
[2019-02-06] MEDS ORDERED: VALA500T PO (15:25)
[2019-02-06] MEDS ORDERED: METH4TAB2 PO (15:25)
[2019-02-06] MEDS ORDERED: MAGN400T22 PO (15:26)
[2019-02-06] MEDS ORDERED: RIBO100T PO (15:26)
--- NOTE | 2019-02-06 15:29 | PDOC3 ---
Discharge Summary Visit Information Date of Admission: February 05, 2019 Date of Discharge: February 06, 2019 Admitting Diagnosis: Acute sciatica, chest discomfort Final Diagnosis Problems Medical Problems: (1) Dizziness Status: Acute (2) Lightheadedness Status: Acute (3) Methamphetamine use Status: Acute (4) Tachycardia Status: Acute Brief Hospital Course Allergies Allergies Coded Allergies Type Severity Reaction Last Updated Verified Sulfa (Sulfonamide Antibiotics) Allergy Intermediate Itching 02/05/19 Yes hydrocodone Allergy Intermediate Itching 02/05/19 Yes sulfamethoxazole Allergy Intermediate itching 06/27/16 Yes trimethoprim Allergy Intermediate itching 06/27/16 Yes I S O L A T I O N *CONTACT* Allergy Unknown 08/25/15 Yes Vital Signs Vital Signs Date Time Temp Pulse Resp B/P (MAP) Pulse Ox O2 Delivery O2 Flow Rate FiO2 02/06/19 12:26 18 Room Air 02/06/19 11:00 98.9 99 127/72 (90) 97 98.9 Lab Results Laboratory Tests Test 02/05/19 17:00 02/05/19 17:55 02/05/19 20:15 02/06/19 06:08 White Blood Count 6.2 x10^3/uL (4.0-11.0) 5.7 x10^3/uL (4.0-11.0) Red Blood Count 4.95 x10^6/uL (3.50-5.40) 4.57 x10^6/uL (3.50-5.40) Hemoglobin 13.6 g/dL (12.0-15.5) 12.8 g/dL (12.0-15.5) Hematocrit 41.0 % (36.0-47.0) 38.6 % (36.0-47.0) Mean Corpuscular Volume 83 fL (79-100) 84 fL (79-100) Mean Corpuscular Hemoglobin 27 pg (25-35) 28 pg (25-35) Mean Corpuscular Hemoglobin Concent 33 g/dL (31-37) 33 g/dL (31-37) Red Cell Distribution Width 14.2 % (11.5-14.5) 14.0 % (11.5-14.5) Platelet Count 317 x10^3/uL (140-400) 282 x10^3/uL (140-400) Neutrophils (%) (Auto) 56 % (31-73) 44 % (31-73) Lymphocytes (%) (Auto) 31 % (24-48) 43 % (24-48) Monocytes (%) (Auto) 11 % (0-9) 10 % (0-9) Eosinophils (%) (Auto) 1 % (0-3) 2 % (0-3) Basophils (%) (Auto) 0 % (0-3) 0 % (0-3) Neutrophils # (Auto) 3.5 x10^3uL (1.8-7.7) 2.5 x10^3uL (1.8-7.7) Lymphocytes # (Auto) 1.9 x10^3/uL (1.0-4.8) 2.5 x10^3/uL (1.0-4.8) Monocytes # (Auto) 0.7 x10^3/uL (0.0-1.1) 0.6 x10^3/uL (0.0-1.1) Eosinophils # (Auto) 0.1 x10^3/uL (0.0-0.7) 0.1 x10^3/uL (0.0-0.7) Basophils # (Auto) 0.0 x10^3/uL (0.0-0.2) 0.0 x10^3/uL (0.0-0.2) Prothrombin Time 13.7 SEC (11.7-14.0) Prothromb Time International Ratio 1.1 (0.8-1.1) D-Dimer (Lluvia) 0.39 ug/mlFEU (0.00-0.50) Sodium Level 141 mmol/L (136-145) 141 mmol/L (136-145) Potassium Level 4.0 mmol/L (3.5-5.1) 4.0 mmol/L (3.5-5.1) Chloride Level 101 mmol/L (98-107) 105 mmol/L (98-107) Carbon Dioxide Level 25 mmol/L (21-32) 23 mmol/L (21-32) Anion Gap 15 (6-14) 13 (6-14) Blood Urea Nitrogen 13 mg/dL (7-20) 13 mg/dL (7-20) Creatinine 1.0 mg/dL (0.6-1.0) 0.8 mg/dL (0.6-1.0) Estimated GFR (Cockcroft-Gault) 71.3 92.2 BUN/Creatinine Ratio 13 (6-20) Glucose Level 125 mg/dL (70-99) 134 mg/dL (70-99) Lactic Acid Level 2.4 mmol/L (0.4-2.0) 1.7 mmol/L (0.4-2.0) 1.5 mmol/L (0.4-2.0) Calcium Level 10.4 mg/dL (8.5-10.1) 9.5 mg/dL (8.5-10.1) Magnesium Level 1.7 mg/dL (1.8-2.4) 1.9 mg/dL (1.8-2.4) Total Bilirubin 0.4 mg/dL (0.2-1.0) Aspartate Amino Transf (AST/SGOT) 15 U/L (15-37) Alanine Aminotransferase (ALT/SGPT) 22 U/L (14-59) Alkaline Phosphatase 60 U/L (46-116) Creatine Kinase 61 U/L (26-192) Creatine Kinase MB (Mass) < 0.5 ng/mL (0.0-3.6) Creatine Kinase MB Relative Index % (0-4) Troponin I Quantitative < 0.017 ng/mL (0.000-0.055) < 0.017 ng/mL (0.000-0.055) TB-Ixt-Q-Type Natriuretic Peptide 18 pg/mL (0-124) Total Protein 7.6 g/dL (6.4-8.2) Albumin 4.1 g/dL (3.4-5.0) Albumin/Globulin Ratio 1.2 (1.0-1.7) Lipase 118 U/L (73-393) Procalcitonin < 0.10 ng/mL (0.00-0.10) Thyroid Stimulating Hormone (TSH) 0.494 uIU/mL (0.358-3.74) Urine Collection Type Unknown Urine Color Yellow Urine Clarity Clear Urine pH 5.5 Urine Specific [place] 1.020 Urine Protein Negative mg/dL (NEG-TRACE) Urine Glucose (UA) Negative mg/dL (NEG) Urine Ketones (Stick) Trace mg/dL (NEG) Urine Blood Negative (NEG) Urine Nitrite Negative (NEG) Urine Bilirubin Small (NEG) Urine Urobilinogen Dipstick 1.0 mg/dL (0.2 mg/dL) Urine Leukocyte Esterase Negative (NEG) Urine RBC Rare /HPF (0-2) Urine WBC 1-4 /HPF (0-4) Urine Squamous Epithelial Cells Many /LPF Urine Amorphous Sediment Present /HPF Urine Bacteria Few /HPF (0-FEW) Urine Hyaline Casts Few /HPF Urine Mucus Marked /LPF Urine Opiates Screen Neg (NEG) Urine Methadone Screen Neg (NEG) Urine Barbiturates Neg (NEG) Urine Phencyclidine Screen Neg (NEG) Urine Amphetamine/Methamphetamine Pos (NEG) Urine Benzodiazepines Screen Neg (NEG) Urine Cocaine Screen Neg (NEG) Urine Cannabinoids Screen Neg (NEG) Urine Ethyl Alcohol Neg (NEG) Triglycerides Level 115 mg/dL (0-150) Cholesterol Level 164 mg/dL (0-200) LDL Cholesterol, Calculated 93 mg/dL (0-100) VLDL Cholesterol, Calculated 23 mg/dL (0-40) Non-HDL Cholesterol Calculated 116 mg/dL (0-129) HDL Cholesterol 48 mg/dL (40-60) Cholesterol/HDL Ratio 3.4 Laboratory Tests Test 02/05/19 17:00 02/05/19 17:55 02/05/19 20:15 02/06/19 06:08 White Blood Count 6.2 x10^3/uL (4.0-11.0) 5.7 x10^3/uL (4.0-11.0) Red Blood Count 4.95 x10^6/uL (3.50-5.40) 4.57 x10^6/uL (3.50-5.40) Hemoglobin 13.6 g/dL (12.0-15.5) 12.8 g/dL (12.0-15.5) Hematocrit 41.0 % (36.0-47.0) 38.6 % (36.0-47.0) Mean Corpuscular Volume 83 fL (79-100) 84 fL (79-100) Mean Corpuscular Hemoglobin 27 pg (25-35) 28 pg (25-35) Mean Corpuscular Hemoglobin Concent 33 g/dL (31-37) 33 g/dL (31-37) Red Cell Distribution Width 14.2 % (11.5-14.5) 14.0 % (11.5-14.5) Platelet Count 317 x10^3/uL (140-400) 282 x10^3/uL (140-400) Neutrophils (%) (Auto) 56 % (31-73) 44 % (31-73) Lymphocytes (%) (Auto) 31 % (24-48) 43 % (24-48) Monocytes (%) (Auto) 11 % (0-9) 10 % (0-9) Eosinophils (%) (Auto) 1 % (0-3) 2 % (0-3) Basophils (%) (Auto) 0 % (0-3) 0 % (0-3) Neutrophils # (Auto) 3.5 x10^3uL (1.8-7.7) 2.5 x10^3uL (1.8-7.7) Lymphocytes # (Auto) 1.9 x10^3/uL (1.0-4.8) 2.5 x10^3/uL (1.0-4.8) Monocytes # (Auto) 0.7 x10^3/uL (0.0-1.1) 0.6 x10^3/uL (0.0-1.1) Eosinophils # (Auto) 0.1 x10^3/uL (0.0-0.7) 0.1 x10^3/uL (0.0-0.7) Basophils # (Auto) 0.0 x10^3/uL (0.0-0.2) 0.0 x10^3/uL (0.0-0.2) Prothrombin Time 13.7 SEC (11.7-14.0) Prothromb Time International Ratio 1.1 (0.8-1.1) D-Dimer (Lluvia) 0.39 ug/mlFEU (0.00-0.50) Sodium Level 141 mmol/L (136-145) 141 mmol/L (136-145) Potassium Level 4.0 mmol/L (3.5-5.1) 4.0 mmol/L (3.5-5.1) Chloride Level 101 mmol/L (98-107) 105 mmol/L (98-107) Carbon Dioxide Level 25 mmol/L (21-32) 23 mmol/L (21-32) Anion Gap 15 (6-14) 13 (6-14) Blood Urea Nitrogen 13 mg/dL (7-20) 13 mg/dL (7-20) Creatinine 1.0 mg/dL (0.6-1.0) 0.8 mg/dL (0.6-1.0) Estimated GFR (Cockcroft-Gault) 71.3 92.2 BUN/Creatinine Ratio 13 (6-20) Glucose Level 125 mg/dL (70-99) 134 mg/dL (70-99) Lactic Acid Level 2.4 mmol/L (0.4-2.0) 1.7 mmol/L (0.4-2.0) 1.5 mmol/L (0.4-2.0) Calcium Level 10.4 mg/dL (8.5-10.1) 9.5 mg/dL (8.5-10.1) Magnesium Level 1.7 mg/dL (1.8-2.4) 1.9 mg/dL (1.8-2.4) Total Bilirubin 0.4 mg/dL (0.2-1.0) Aspartate Amino Transf (AST/SGOT) 15 U/L (15-37) Alanine Aminotransferase (ALT/SGPT) 22 U/L (14-59) Alkaline Phosphatase 60 U/L (46-116) Creatine Kinase 61 U/L (26-192) Creatine Kinase MB (Mass) < 0.5 ng/mL (0.0-3.6) Creatine Kinase MB Relative Index % (0-4) Troponin I Quantitative < 0.017 ng/mL (0.000-0.055) < 0.017 ng/mL (0.000-0.055) KN-Dtq-X-Type Natriuretic Peptide 18 pg/mL (0-124) Total Protein 7.6 g/dL (6.4-8.2) Albumin 4.1 g/dL (3.4-5.0) Albumin/Globulin Ratio 1.2 (1.0-1.7) Lipase 118 U/L (73-393) Procalcitonin < 0.10 ng/mL (0.00-0.10) Thyroid Stimulating Hormone (TSH) 0.494 uIU/mL (0.358-3.74) Urine Collection Type Unknown Urine Color Yellow Urine Clarity Clear Urine pH 5.5 Urine Specific [place] 1.020 Urine Protein Negative mg/dL (NEG-TRACE) Urine Glucose (UA) Negative mg/dL (NEG) Urine Ketones (Stick) Trace mg/dL (NEG) Urine Blood Negative (NEG) Urine Nitrite Negative (NEG) Urine Bilirubin Small (NEG) Urine Urobilinogen Dipstick 1.0 mg/dL (0.2 mg/dL) Urine Leukocyte Esterase Negative (NEG) Urine RBC Rare /HPF (0-2) Urine WBC 1-4 /HPF (0-4) Urine Squamous Epithelial Cells Many /LPF Urine Amorphous Sediment Present /HPF Urine Bacteria Few /HPF (0-FEW) Urine Hyaline Casts Few /HPF Urine Mucus Marked /LPF Urine Opiates Screen Neg (NEG) Urine Methadone Screen Neg (NEG) Urine Barbiturates Neg (NEG) Urine Phencyclidine Screen Neg (NEG) Urine Amphetamine/Methamphetamine Pos (NEG) Urine Benzodiazepines Screen Neg (NEG) Urine Cocaine Screen Neg (NEG) Urine Cannabinoids Screen Neg (NEG) Urine Ethyl Alcohol Neg (NEG) Triglycerides Level 115 mg/dL (0-150) Cholesterol Level 164 mg/dL (0-200) LDL Cholesterol, Calculated 93 mg/dL (0-100) VLDL Cholesterol, Calculated 23 mg/dL (0-40) Non-HDL Cholesterol Calculated 116 mg/dL (0-129) HDL Cholesterol 48 mg/dL (40-60) Cholesterol/HDL Ratio 3.4 Brief Hospital Course Ms Ham is a 48-year-old -[place] female with BMI 41, history of hydradenitis suppurativa in the rectal area needing surgery in the past. She comes in with dizziness, lightheadedness but stable VS except for sinus tachycardia 133 via EMS with prolonged QT 50s via EMS strip that I have personally reviewed. Then she tells me about palpitations or chest discomfort or some weird feeling in her mid sternal/epigastric area. No known CAD personal hx, NOn smoker, non drinker, Mag slightly low 1.7. Calcium slightly high 10.4. Lactate 2.4. She admits she is dehydrated has not been drinking lately. She knows by memory all her medications namely: gabapentin 1200mgs 3 times a day, Flexeril 10mgs when necessary Metformin 500 twice a day but she increased to 1000 twice a day without her MD knowledge because she did not like her recent A1c, Wellbutrin 300mgs daily Cymbalta 120mgs daily at bedtime, Adderall 40 mg once a day, trazodone 100 when necessary. She requests for IV narcotics. Admitted for elevated lactate, unclear source, clean UA. CT head is negative. Chest x-rays negative Sinus tachycardia with prolonged QT and some electric abnormalities namely hypercalcemia and hypomagnesemia. Echo read as normal. troponin negative. She is amenable to discharge with magnesium, riboflavin, prednisone taper for sciatica, doxycycline for cellulitis and acyclovir for herpes outbreak Acute left sciatica Chest discomfort Constipation Dizziness Amphetamine use Tachycardia Borderline diabetes Fibromyalgia Peripheral neuropathy from chemotherapy 2000 Past surgical history TAHBSO Recommended f/u with psychiatry for her in the future as well. Greater than 30 minutes spent on discharge. Discharge Information Condition at Discharge: Improved Follow Up: Weeks (2) Disposition/Orders: D/C to Home Scheduled Carisoprodol (Soma) 350 Mg Tablet, 1 TAB PO TID, (Reported) Entered as Reported by: LUIS DONG on 06/11/15415 Last Action: HELD on 02/05/191856 by ADDISON NEVAREZ Clindamycin Hcl (Clindamycin Hcl) 150 Mg Capsule, 3 CAP PO TID, #90 Prescribed by: Fouzia Oliva APRN on 02/10/17 1643 Last Action: HELD on 02/05/191856 by ADDISON NEVAREZ Cyclobenzaprine Hcl (Cyclobenzaprine Hcl) 10 Mg Tablet, 1 TAB PO TID, #90 (Reported) Entered as Reported by: HI DE LEON on 06/27/16 1500 Last Action: Continued on 02/05/191856 by ADDISON NEVAREZ Fexofenadine Hcl (Carrie Allergy) 180 Mg Tablet, 180 MG PO DAILY, (Reported) Entered as Reported by: LUIS DONG on 06/11/15415 Last Action: HELD on 02/05/191856 by ADDISON NEVAREZ Gabapentin (Gabapentin) 600 Mg Tablet, 1,200 MG PO TID, (Reported) Entered as Reported by: LUIS DONG on 06/11/15415 Last Action: Converted on 02/05/191856 by ADDISON NEVAREZ Gabapentin (Neurontin) 800 Mg Tablet, 800 MG PO TID, (Reported) Entered as Reported by: ARABELLA PEREYRA on 06/27/16 2339 Last Action: HELD on 02/05/191856 by ADDISON NEVAREZ Ibuprofen (Ibuprofen) 400 Mg Tablet, 600 MG PO TID, (Reported) Entered as Reported by: LUIS DONG on 06/11/15415 Last Action: HELD on 02/05/191856 by ADDISON NEVAREZ Ketorolac Tromethamine (Ketorolac Tromethamine) 10 Mg Tablet, 1 TAB PO PRN Q6HRS, #5 Prescribed by: MAGDIEL VELEZ APRN on 05/08/16 1531 Last Action: HELD on 02/05/191856 by ADDISON NEVAREZ Methylprednisolone (Medrol) 4 Mg Tab.ds.pk, 1 PKG PO UD, #1 Prescribed by: ELÍAS LANDAVERDE APRN on 05/27/17 1353 Last Action: HELD on 02/05/191856 by ADDISON NEVAREZ Morphine Sulfate Er (Ms Contin) 30 Mg Tablet.er, 0.5 TAB PO BID, #60 Prescribed by: ASHLEY ANGEL on 06/30/16 1100 Last Action: HELD on 02/05/191856 by ADDISON NEVAREZ Omeprazole (Omeprazole) 40 Mg Capsule.dr, 40 MG PO BID, (Reported) Entered as Reported by: LUIS DONG on 06/11/15415 Last Action: HELD on 02/05/191856 by ADDISON NEVAREZ Oxycodone/Apap 10-325 (Percocet 10-325 Mg Tablet ) 1 Each Tablet, 1 TAB PO Q8HRS, #6 DO NOT FILL THIS RX IF SHE HAS FILLED ANY NARCOTICS IN THE LAST SEVEN DAYS MUST FILL CLINDMYCIN PRIOR TO OYXCODONE Prescribed by: Fouzia Oliva APRN on 02/10/17 1643 Last Action: Continued on 02/05/191856 by ADDISON NEVAREZ Paroxetine Hcl (Paxil) 30 Mg Tablet, 60 MG PO DAILY, (Reported) Entered as Reported by: LUIS DONG on 06/11/15415 Last Action: HELD on 02/05/191856 by ADDISON NEVAREZ Scheduled PRN Hydrocodone/Apap 10-325 ([place] 10-325 Tablet) 1 Each Tablet, 2 TAB PO Q4HRS PRN for PAIN, (Reported) Entered as Reported by: LUIS DONG on 06/11/15 0416 Last Action: HELD on 02/05/191856 by ADDISON NEVAREZ Morphine Sulfate (Morphine Sulfate) 15 Mg Tablet, 1 TAB PO QID PRN for PAIN, #45 Prescribed by: ASHLEY ANGEL on 06/30/16 1100 Last Action: HELD on 02/05/191856 by ADDISON NEVAREZ Miscellaneous Medications Buspirone Hcl (Buspirone Hcl) 30 Mg Tablet, #60 (Reported) Entered as Reported by: ARABELLA PEREYRA on 06/27/162338 Last Action: HELD on 02/05/191856 by ADDISON NEVAREZ Dextroamphetamine/Amphetamine (Amphetamine Salts 20 Mg Tablet) 20 Mg Tablet, #60 (Reported) Entered as Reported by: ARABELLA PEREYRA on 06/27/162338 Last Action: HELD on 02/05/191856 by ADDISON NEVAREZ Diclofenac Sodium (Diclofenac Sodium) 75 Mg Tablet.dr, #60 (Reported) Entered as Reported by: ARABELLA PEREYRA on 06/27/162338 Last Action: HELD on 02/05/191856 by ADDISON NEVAREZ Duloxetine Hcl (Duloxetine Hcl) 60 Mg Capsule.dr, #60 (Reported) Entered as Reported by: ARABELLA PEREYRA on 06/27/162338 Last Action: Converted on 02/05/191856 by ADDISON NEVAREZ Fluticasone Propionate (Fluticasone Propionate Nasal [place]) 16 Gm [place].susp, #16 (Reported) Entered as Reported by: ARABELLA PEREYRA on 06/27/162338 Lamotrigine (Lamotrigine) 100 Mg Tablet, #30 (Reported) Entered as Reported by: ARABELLA PEREYRA on 06/27/162338 Last Action: HELD on 02/05/191856 by ADDISON NEVAREZ Lidocaine (Lidocaine) 700 Mg Adh..patch, #10 (Reported) Entered as Reported by: ARABELLA PEREYRA on 06/27/162338 Last Action: HELD on 02/05/191856 by ADDISON NEVAREZ Metformin Hcl (Metformin Hcl Er) 500 Mg Tab.er.24h, #120 (Reported) Entered as Reported by: ARABELLA PEREYRA on 06/27/162338 Last Action: Converted on 02/05/191856 by ADDISON NEVAREZ Pantoprazole Sodium (Pantoprazole Sodium) 40 Mg Tablet.dr, #30 (Reported) Entered as Reported by: ARABELLA PEREYRA on 06/27/162338 Last Action: Continued on 02/05/191856 by ADDISON NEVAREZ Valacyclovir Hcl (Valacyclovir) 500 Mg Tablet, #30 (Reported) Entered as Reported by: ARABELLA PEREYRA on 06/27/162338 Last Action: HELD on 02/05/191856 by ZEKE THOMAS MD February 06, 2019 15:28
--- NOTE | 2019-02-06 18:58 | NUR ---
Discharge Note: KORTNEY ROSALES [address] Discharge instructions and discharge home medications reviewed with Patient and a copy given. All questions have been answered and understanding verbalized. The following instructions and handouts were given: Tachycardia Discontinued IV line Patient discharged to home with self care via wheelchair
== END 2019-02-06 19:00 | disposition home or self-care (01) | DRG 640 ==
LOC: ER 15:40 → 2 NORTH 18:49
PROVIDERS: ADMIT Internal Medicine; ATTEND Internal Medicine
DX: E86.0 Dehydration (principal); R65.11 Systemic inflammatory response syndrome (SIRS) of non-infectious origin with acute organ dysfunction; F11.20 Opioid dependence, uncomplicated; L03.90 Cellulitis, unspecified; Z68.41 Body mass index [BMI] 40.0-44.9, adult; R07.89 Other chest pain; E87.1 Hypo-osmolality and hyponatremia; E87.2 Acidosis; B00.9 Herpesviral infection, unspecified; E11.9 Type 2 diabetes mellitus without complications; E66.9 Obesity, unspecified; E83.42 Hypomagnesemia; E83.52 Hypercalcemia; E87.6 Hypokalemia; F15.90 Other stimulant use, unspecified, uncomplicated; F43.10 Post-traumatic stress disorder, unspecified; E66.01 Morbid (severe) obesity due to excess calories; F32.9 Major depressive disorder, single episode, unspecified; F41.9 Anxiety disorder, unspecified; G43.909 Migraine, unspecified, not intractable, without status migrainosus; G62.0 Drug-induced polyneuropathy; G89.29 Other chronic pain; I10 Essential (primary) hypertension; K21.9 Gastro-esophageal reflux disease without esophagitis; K59.00 Constipation, unspecified; K76.0 Fatty (change of) liver, not elsewhere classified; M54.42 Lumbago with sciatica, left side; M79.7 Fibromyalgia; T45.1X5A Adverse effect of antineoplastic and immunosuppressive drugs, initial encounter; Z80.3 Family history of malignant neoplasm of breast; Z82.49 Family history of ischemic heart disease and other diseases of the circulatory system; Z85.42 Personal history of malignant neoplasm of other parts of uterus; Z90.13 Acquired absence of bilateral breasts and nipples; Z90.710 Acquired absence of both cervix and uterus; Z96.649 Presence of unspecified artificial hip joint; Z98.84 Bariatric surgery status; Z85.3 Personal history of malignant neoplasm of breast; Z68.39 Body mass index [BMI] 39.0-39.9, adult
CPT/HCPCS: 36415; 70450; 71045; 80048; 80053; 80061; 80307; 81001; 82553; 83605; 83690; 83735; 83880; 84145; 84443; 84484; 85025; 85379; 85610; 87040; 93005; 93306; 96361; 96365; 96375; J0696; J2270; J2930; J3010; J3475; J7030; 99285-25

== ENCOUNTER 2019-03-13 12:25 | Observation (INO) | payer MEDICARE ==
[~2019-03-13] VITALS: Ht 175.3 cm; Wt 124.8 kg
[~2019-03-13 12:25] MED LIST changes: +DOXY100C14 PO; -DULO60CA44; +DULO60CA44 PO; +LUBI8CAP4 PO; +MAGN400T22 PO; -PANT40TA5; +PANT40TA77; +RIBO100T PO; +VALA500T PO
[2019-03-13] MEDS ORDERED: IV NORMAL SALINE 1000ML BAG 1,000 ML IV SCH (12:37)
--- NOTE | 2019-03-13 12:44 | PHYS DOC ---
Past Medical History Past Medical History: Anxiety, Cancer, Depression, Diabetes-Type II, Fibromyalgia, Hypertension, Migraines, Sciatica, Other Additional Past Medical Histor: morbid obesity,breast and uterine cancer, neuropathy,PTSD, Herpies zoster Past Surgical History: Cancer Surgery, Hysterectomy, Tonsillectomy Additional Past Surgical Histo: bilateral mastectomy, breast reconstruction,gastric sleeve Alcohol Use: None Drug Use: None Adult General Chief Complaint Chief Complaint: multiple medical complaints HPI HPI Patient is a 48-year-old female who presents to the emergency department via EMS, after being picked up in a hotel. She has generalized vague complaints. She complains of generalized fatigue and weakness over the past few days. She states she has not had an appetite. She has been trying to drink a lot of water but states she has not been able to drink as much she would like. She is a diabetic, but does not check her blood sugar regularly. She doesn't have some generalized lower abdominal pain, reports diffuse body pain which is chronic for her. She does have a history of fibromyalgia. She has not had any nausea, vomiting, diarrhea, black or bloody stools, chest pain, shortness of breath, fevers, or chills. There are no alleviating or exacerbating factors to her symptoms. Review of Systems Review of Systems Constitutional: Denies fever or chills [] Eyes: Denies change in visual acuity, redness, or eye pain [] HENT: Denies nasal congestion or sore throat [] Respiratory: Denies cough or shortness of breath [] Cardiovascular: The patient denies any shortness of breath, chest pain, palpitations, or orthopnea [] GI: Denies nausea, vomiting, bloody stools or diarrhea [] : Denies dysuria or hematuria [] Musculoskeletal: Denies back pain or joint pain [] Integument: Denies rash or skin lesions [] Neurologic: Denies headache, focal weakness or sensory changes [] Endocrine: Denies polyuria or polydipsia [] All other systems were reviewed and found to be within normal limits, except as documented in this note. Current Medications Current Medications Current Medications Medications (Trade) Dose Ordered Sig/[place] Start Time Stop Time Status Last Admin Dose Admin Info (CONTRAST GIVEN -- Rx MONITORING) 1 each PRN DAILY PRN 03/13/19 14:45 03/15/19 14:44 Iohexol (Omnipaque 300 Mg/ml) 75 ml 1X ONCE 03/13/19 14:30 03/13/19 14:32 DC 03/13/19 14:48 75 ML Ketorolac Tromethamine (Toradol 30mg Vial) 30 mg 1X ONCE 03/13/19 12:45 03/13/19 12:46 DC 03/13/19 14:06 30 MG Sodium Chloride 1,000 ml @ 1,000 mls/hr Q1H 03/13/19 12:37 03/13/19 13:36 DC 03/13/19 14:06 1,000 MLS/HR Allergies Allergies Allergies Coded Allergies Type Severity Reaction Last Updated Verified NSAIDS (Non-Steroidal Anti-Inflamma Allergy Intermediate HIVES 03/13/19 Yes Sulfa (Sulfonamide Antibiotics) Allergy Intermediate Itching 02/05/19 Yes hydrocodone Allergy Intermediate Itching 02/05/19 Yes sulfamethoxazole Allergy Intermediate itching 06/27/16 Yes trimethoprim Allergy Intermediate itching 06/27/16 Yes I S O L A T I O N *CONTACT* Allergy Unknown 08/25/15 Yes Physical Exam Physical Exam PHYSICAL EXAM: CONSTITUTIONAL: Well developed, well nourished HEAD: normocephalic, atraumatic EENT: PERRL, EOMI. Conjunctivae normal color, sclerae non-icteric; moist mucous membranes. NECK: Supple, non-tender; no meningismus. LUNGS: Lungs CTA, breathing even and unlabored. Normal air movement. HEART: Regular rate and rhythm, no murmur CHEST: No deformity; non-tender ABDOMEN: The abdomen is soft, there is diffuse tenderness to palpation to the lower abdomen, exam somewhat limited by abdominal girth, normal bowel sounds are present, there is no rebound or guarding, the remainder the abdomen is soft and non-tender, no masses or bruits. EXTREM: Normal ROM; no deformity, no calf tenderness. Normal pulses palpable in all extremities. There is no pedal edema. SKIN: No rash; no diaphoresis NEURO: Alert; normal speech and cognition; CN's grossly intact; strength grossly intact without focal deficit. BACK: No CVA TTP. Current Patient Data Vital Signs Vital Signs Date Time Temp Pulse Resp B/P (MAP) Pulse Ox O2 Delivery O2 Flow Rate FiO2 03/13/19 16:22 97.9 78 18 128/60 2.0 97.3 87 18 03/13/19 12:59 99 Room Air Lab Values Laboratory Tests Test 03/13/19 13:54 03/13/19 15:17 White Blood Count 4.9 x10^3/uL (4.0-11.0) Red Blood Count 4.31 x10^6/uL (3.50-5.40) Hemoglobin 12.1 g/dL (12.0-15.5) Hematocrit 36.2 % (36.0-47.0) Mean Corpuscular Volume 84 fL (79-100) Mean Corpuscular Hemoglobin 28 pg (25-35) Mean Corpuscular Hemoglobin Concent 34 g/dL (31-37) Red Cell Distribution Width 15.1 % (11.5-14.5) H Platelet Count 245 x10^3/uL (140-400) Neutrophils (%) (Auto) 53 % (31-73) Lymphocytes (%) (Auto) 31 % (24-48) Monocytes (%) (Auto) 14 % (0-9) H Eosinophils (%) (Auto) 2 % (0-3) Basophils (%) (Auto) 0 % (0-3) Neutrophils # (Auto) 2.6 x10^3uL (1.8-7.7) Lymphocytes # (Auto) 1.5 x10^3/uL (1.0-4.8) Monocytes # (Auto) 0.7 x10^3/uL (0.0-1.1) Eosinophils # (Auto) 0.1 x10^3/uL (0.0-0.7) Basophils # (Auto) 0.0 x10^3/uL (0.0-0.2) Prothrombin Time 12.6 SEC (11.7-14.0) Prothrombin Time INR 1.0 (0.8-1.1) Sodium Level 140 mmol/L (136-145) Potassium Level 4.2 mmol/L (3.5-5.1) Chloride Level 102 mmol/L (98-107) Carbon Dioxide Level 28 mmol/L (21-32) Anion Gap 10 (6-14) Blood Urea Nitrogen 17 mg/dL (7-20) Creatinine 0.9 mg/dL (0.6-1.0) Estimated GFR (Cockcroft-Gault) 80.5 BUN/Creatinine Ratio 19 (6-20) Glucose Level 164 mg/dL (70-99) H Calcium Level 9.6 mg/dL (8.5-10.1) Magnesium Level 1.8 mg/dL (1.8-2.4) Total Bilirubin 0.3 mg/dL (0.2-1.0) Aspartate Amino Transferase (AST) 20 U/L (15-37) Alanine Aminotransferase (ALT) 30 U/L (14-59) Alkaline Phosphatase 59 U/L (46-116) Troponin I Quantitative < 0.017 ng/mL (0.000-0.055) GP-Jkm-L-Type Natriuretic Peptide 10 pg/mL (0-124) Total Protein 7.2 g/dL (6.4-8.2) Albumin 3.9 g/dL (3.4-5.0) Albumin/Globulin Ratio 1.2 (1.0-1.7) Lipase 119 U/L (73-393) Thyroid Stimulating Hormone (TSH) 0.417 uIU/mL (0.358-3.74) Free Thyroxine 1.14 ng/dL (0.76-1.46) Urine Collection Type U cath Urine Color Yellow Urine Clarity Clear Urine pH 7.0 Urine Specific [place] 1.025 Urine Protein Negative mg/dL (NEG-TRACE) Urine Glucose (UA) Negative mg/dL (NEG) Urine Ketones (Stick) Negative mg/dL (NEG) Urine Blood Small (NEG) Urine Nitrite Negative (NEG) Urine Bilirubin Negative (NEG) Urine Urobilinogen Dipstick 0.2 mg/dL (0.2 mg/dL) Urine Leukocyte Esterase Negative (NEG) Urine RBC 11-20 /HPF (0-2) Urine WBC Occ /HPF (0-4) Urine Squamous Epithelial Cells Few /LPF Urine Transitional Epithelial Cells Occ /LPF Urine Bacteria 0 /HPF (0-FEW) Urine Opiates Screen Neg (NEG) Urine Methadone Screen Neg (NEG) Urine Barbiturates Neg (NEG) Urine Phencyclidine Screen Neg (NEG) Urine Amphetamine/Methamphetamine Pos (NEG) Urine Benzodiazepines Screen Neg (NEG) Urine Cocaine Screen Neg (NEG) Urine Cannabinoids Screen Neg (NEG) Urine Ethyl Alcohol Neg (NEG) Laboratory Tests 03/13/19 13:54 Laboratory Tests 03/13/19 13:54 EKG EKG normal sinus rhythm at a rate of 104 beats for minute, normal axis, normal intervals. There are no acute ischemic ST/[] Radiology/Procedures Radiology/Procedures [PROCEDURE: CT ABD PELV W/ IV CONTRST ONLY Exam performed: CT scan of the abdomen and pelvis with contrast Indication: Lower abdominal pain, history of breast cancer, gastric sleeve surgery Date of Service: 03/13/2019. Comparison: None available Technique: Contiguous helical acquisitions are obtained through the abdomen and pelvis during intravenous administration of 75 cc of Omnipaque 300. In addition sagittal and coronal reformatted images are obtained and reviewed. CT scan abdomen and pelvis findings: The lung bases are clear. Visualized heart is normal. Tiny hiatal hernia. The liver, spleen and pancreas appear normal. Gallbladder is partially decompressed.. Both adrenal glands and bilateral kidneys appear normal with symmetric excretion of contrast via both kidneys. There is a small 5.4 mm calculus in the right renal pelvis. There is a 14 mm round calcification inferior to the pancreatic body, adjacent to the renal and splenic vessels perhaps splenic or renal artery aneurysm. The aorta is normal. No retroperitoneal lymphadenopathy is identified. The small bowel loops are nondilated and unremarkable . There is diffuse scattered stool throughout the colon. Visualized appendix is unremarkable. No bowel related stranding or mesenteric lymphadenopathy seen. The pelvic small bowel loops are nondilated and unremarkable .The urinary bladder is well distended and unremarkable. Distal ureters are not clearly seen.. No pelvic side wall lymphadenopathy or free fluid seen. Bones unremarkable. Impression CT Abdomen and pelvis: 1. No acute findings seen in the abdomen and pelvis. 2. Diffuse scattered stool throughout the colon consistent with constipation 3. Probable calcified 14 mm splenic or renal artery aneurysm. Evaluation with CT angiogram aorta may be obtained for further evaluation on a nonemergent basis.] Course & Med Decision Making Course & Med Decision Making Pertinent Labs and Imaging studies reviewed. (See chart for details) []The patient's condition remained stable but she still states she remains too weak to ambulate, she states she is too weak to go home and attempts to ambulate the patient failed. I spoke with the hospitalist who graciously agreed to admit the patient. The patient states she does have a history of splenic artery aneurysm that she has previously been made aware of Dragon Disclaimer Dragon Disclaimer This electronic medical record was generated, in whole or in part, using a voice recognition dictation system. Departure Departure Impression: Primary Impression: Weakness generalized Additional Impression: Fibromyalgia Disposition: 09 ADMITTED INPATIENT Condition: STABLE Referrals: TRINIDAD RODAS (PCP) Problem Qualifiers AUTUMN NORTON MD Mar 13, 2019 12:44
[2019-03-13] MEDS ORDERED: KETOROLAC 30 MG/ML VIAL. IV ONE (12:45)
[2019-03-13 14:15] LABS: BASO % 0 % (0-3); EOS # 0.1 x10^3/uL (0.0-0.7); EOS % 2 % (0-3); HEMATOCRIT 36.2 % (36.0-47.0); HEMOGLOBIN 12.1 g/dL (12.0-15.5); LYMPH # 1.5 x10^3/uL (1.0-4.8); LYMPH % 31 % (24-48); MEAN CORPUSCULAR HEMOGLOBIN 28 pg (25-35); MEAN CORPUSCULAR HGB CONC 34 g/dL (31-37); MEAN CORPUSCULAR VOLUME 84 fL (79-100); MONO # 0.7 x10^3/uL (0.0-1.1); MONO % 14 % (0-9); NEUT # 2.6 x10^3uL (1.8-7.7); NEUT % 53 % (31-73); PLATELET COUNT 245 x10^3/uL (140-400); RED BLOOD COUNT 4.31 x10^6/uL (3.50-5.40); RED CELL DISTRIBUTION WIDTH 15.1 % (11.5-14.5); WHITE BLOOD COUNT 4.9 x10^3/uL (4.0-11.0)
[2019-03-13 14:19] LABS: PROTHROMBIN TIME PATIENT 12.6 SEC (11.7-14.0)
[2019-03-13 14:27] LABS: CALCIUM 9.6 mg/dL (8.5-10.1); CREATININE 0.9 mg/dL (0.6-1.0); GFR 80.5; POTASSIUM 4.2 mmol/L (3.5-5.1)
[2019-03-13] MEDS ORDERED: IOHEXOL 300 MG/ML 100ML VIAL. IV ONE (14:30)
[2019-03-13 14:32] LABS: ALBUMIN 3.9 g/dL (3.4-5.0); ALBUMIN/GLOBULIN RATIO 1.2 (1.0-1.7); MAGNESIUM 1.8 mg/dL (1.8-2.4); TOTAL BILIRUBIN 0.3 mg/dL (0.2-1.0); TOTAL PROTEIN 7.2 g/dL (6.4-8.2)
[2019-03-13 14:39] LABS: FREE T4 1.14 ng/dL (0.76-1.46); THYROID STIM HORMONE (TSH) 0.417 uIU/mL (0.358-3.74)
[2019-03-13] MEDS ORDERED: CONTRAST GIVEN. MC PRN (14:45)
--- NOTE | 2019-03-13 15:12 | RAD ---
Exam performed: CT scan of the abdomen and pelvis with contrast Indication: Lower abdominal pain, history of breast cancer, gastric sleeve surgery Date of Service: 03/13/2019. Comparison: None available Technique: Contiguous helical acquisitions are obtained through the abdomen and pelvis during intravenous administration of 75 cc of Omnipaque 300. In addition sagittal and coronal reformatted images are obtained and reviewed. CT scan abdomen and pelvis findings: The lung bases are clear. Visualized heart is normal. Tiny hiatal hernia. The liver, spleen and pancreas appear normal. Gallbladder is partially decompressed.. Both adrenal glands and bilateral kidneys appear normal with symmetric excretion of contrast via both kidneys. There is a small 5.4 mm calculus in the right renal pelvis. There is a 14 mm round calcification inferior to the pancreatic body, adjacent to the renal and splenic vessels perhaps splenic or renal artery aneurysm. The aorta is normal. No retroperitoneal lymphadenopathy is identified. The small bowel loops are nondilated and unremarkable . There is diffuse scattered stool throughout the colon. Visualized appendix is unremarkable. No bowel related stranding or mesenteric lymphadenopathy seen. The pelvic small bowel loops are nondilated and unremarkable .The urinary bladder is well distended and unremarkable. Distal ureters are not clearly seen.. No pelvic side wall lymphadenopathy or free fluid seen. Bones unremarkable. Impression CT Abdomen and pelvis: 1. No acute findings seen in the abdomen and pelvis. 2. Diffuse scattered stool throughout the colon consistent with constipation 3. Probable calcified 14 mm splenic or renal artery aneurysm. Evaluation with CT angiogram aorta may be obtained for further evaluation on a nonemergent basis. PQRS Compliance Statement: One or more of the following individualized dose reduction techniques were utilized for this examination: 1. Automated exposure control 2. Adjustment of the mA and/or kV according to patient size 3. Use of iterative reconstruction technique Electronically signed by: Natasha Longoria MD (03/13/2019 3:08 PM) [facility]
[2019-03-13 15:24] LABS: BILIRUBIN,URINE NEGATIVE (NEG); CLARITY,URINE CLEAR; COLOR,URINE YELLOW; NITRITE,URINE NEGATIVE (NEG); PROTEIN,URINE NEGATIVE (NEG-TRACE); UROBILINOGEN,URINE 0.2 mg/dL (0.2 mg/dL)
[2019-03-13 15:30] LABS: BACTERIA,URINE 0 /HPF (0-FEW); SQUAMOUS EPITHELIAL CELL,UR FEW /LPF; WBC,URINE OCC /HPF (0-4)
[2019-03-13 15:32] LABS: BARBITURATES NEG (NEG); BENZODIAZEPINES NEG (NEG); CANNABINOIDS NEG (NEG); COCAINE NEG (NEG); METHADONE NEG (NEG); OPIATES NEG (NEG); PHENCYCLIDINE NEG (NEG)
[2019-03-13 15:34] LABS: AMPHETAMINE/METHAMPHETAMINE POS (NEG)
[2019-03-13 16:22] VITALS: BP 128/60
[2019-03-13] MEDS ORDERED: IV NORMAL SALINE 1000ML BAG 1,000 ML IV ONE (16:45)
[2019-03-13] MEDS ORDERED: KETOROLAC TROMETHAMINE 10 MG TABLET PO SCH (17:00)
[2019-03-13] MEDS ORDERED: DEXTROSE 50% 25 GM / 50ML DISP.SYRIN. IV PRN (17:00)
[2019-03-13] MEDS ORDERED: ALPRAZolam 0.5 MG TABLET PO PRN (17:00)
[2019-03-13] MEDS ORDERED: ONDANSETRON PF 4 MG/2 ML VIAL. IV PRN (17:00)
[2019-03-13] MEDS ORDERED: ACETAMINOPHEN 500 MG TABLET PO PRN (17:00)
--- NOTE | 2019-03-13 18:17 | EKG ---
[facility] [address] [place] [address] Test Date: 2019-03-13 Test Time: 13:03:39 Pat Name: KORTNEY ROSALES Department: Room: Gender: F Mission Coordinator: : 1970 Requested By: AUTUMN NORTON Order Number: [id number] Reading MD: Measurements Intervals [place] Rate: 103 P: 46 MT: 162 QRS: 34 QRSD: 88 T: 54 QT: 346 QTc: 455 Interpretive Statements SINUS TACHYCARDIA NON SPECIFIC T ABNORMALITY BORDERLINE ECG No previous ECG available for comparison
[2019-03-13 19:00] VITALS: BP 106/65
--- NOTE | 2019-03-13 19:30 | NUR ---
The patient, KORTNEY ROSALES, 48 y/o, F admitted by ADDISON NEVAREZ MD, was given written information regarding hospital policies, unit procedures and contact persons. Valuables were checked and noted. patient is in bed watching TV and eating a meal tray. The patient states no needs at this time. This RN will continue to monitor the patient at this time.
[2019-03-13] MEDS ORDERED: oxyCODONE/APAP 10/325 1 TAB TABLET PO PRN (20:14)
[2019-03-13] MEDS: IBUPROFEN 400 MG TABLET. PO SCH (20:21)
[2019-03-13] MEDS: GABAPENTIN 400 MG CAPSULE. PO SCH (20:22)
[2019-03-13] MEDS: MAGNESIUM OXIDE 400 MG TABLET PO SCH (20:22)
[2019-03-13] MEDS: CYCLOBENZAPRINE 10 MG TABLET. PO SCH (20:22)
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
[2019-03-13] MEDS ORDERED: MELA3TAB2 PO (20:42)
[2019-03-13] MEDS: KETOROLAC 15 MG/ML VIAL. IV PRN (22:30)
[2019-03-13 22:48] VITALS: BP 126/84
[2019-03-14 02:36] VITALS: BP 107/69
--- NOTE | 2019-03-14 02:54 | NUR ---
the patient has been argumentative with staff throughout the shift. The patient stated that the CONCRETE BUCKET HOOKER did not inform the patient of her blood glucose result, the CONCRETE BUCKET HOOKER did in fact inform the patient of her blood glucose result while this RN was in the room with the patient. at this time this RN rechecked the patient's blood glucose and informed the patient of the results. Patient has repeated asked for IV narcotics throughout the shift, provided education to the patient on MD orders. Patient also complained of inability to sleep although sleeping medication was given to the patient. MD was called about more sleeping medications, orders were received. Dr. Kelly states that she will not order anymore pain medications at this time, this RN will continue to monitor this patient at this time.
[2019-03-14] MEDS ORDERED: diphenhydrAMINE HCL 25 MG CAPSULE PO ONE (03:30)
--- NOTE | 2019-03-14 06:37 | NUR ---
When IT GENERALIST entered the patient's room patient stated that she would not get out of bed because she is here for weakness and that she was in pain. patient yelled at the IT GENERALIST "how do you think it feels to be here and not get anything for pain or sleep, I need the pee bucket". When this RN entered the patient's room and asked the patient why she did not want to walk to the bathroom, the patient stated that her Blood glucose is super low and that she does not feel like she could make it to the bathroom. this RN checked the patient's glucose, result is 138. Patient is still refusing to get out of bed. This RN has given the patient multiple doses of pain medications and sleep medications throughout the shift. This RN and the IT GENERALIST placed the patient on the bedpan. This RN will continue to monitor the patient at this time.
[2019-03-14 07:00] VITALS: BP 126/77
[2019-03-14] MEDS ORDERED: PANTOPRAZOLE 40 MG TABLET.DR. PO SCH (07:00)
[2019-03-14] MEDS ORDERED: INSULIN LISPRO 300 UNITS/3 ML INSULN.PEN. SQ SCH (08:00)
[2019-03-14] MEDS: PARoxetine 20 MG TABLET PO SCH ×2 (08:24→09:00)
[2019-03-14] MEDS: CYCLOBENZAPRINE 10 MG TABLET. PO SCH (08:24)
[2019-03-14] MEDS: MAGNESIUM OXIDE 400 MG TABLET PO SCH (08:24)
[2019-03-14] MEDS: GABAPENTIN 400 MG CAPSULE. PO SCH (08:24)
[2019-03-14] MEDS: DULoxetine HCL 30 MG CAPSULE.DR PO SCH ×2 (08:25→09:00)
[2019-03-14] MEDS: IBUPROFEN 400 MG TABLET. PO SCH (09:00)
[2019-03-14] MEDS ORDERED: FLUTICASONE 50MCG/NASAL SPRAY 16GM BOTTLE. NS SCH (09:00)
[2019-03-14] MEDS ORDERED: CETIRIZINE HCL 10 MG TABLET. PO SCH (09:00)
[2019-03-14 11:00] VITALS: BP 125/74
--- NOTE | 2019-03-14 11:26 | SNU/HH DC ---
DISCHARGE WITH HOME HEALTH DISCHARGE INFORMATION: Discharge Date: Mar 14, 2019 Final Diagnosis: chronic pain malingering weakness, Problems Medical Problems: (1) Fibromyalgia Status: Acute (2) Weakness generalized Status: Acute Condition on Discharge: Stable CODE STATUS: Code Status: Full HOME HEALTH: Face to Face: I certify this patient is under my care and that I, or a nurse practitioner or physician's surgical assistant certified working with me, had a face to face encounter that meets the physician face to face encounter requirements with this patient on 03/14 RN For Eval/Treatment: Yes Physical Therapy For: Evalulation/Treatment Occupational Therapy For: Evaluation/Treatment Pt Meets Homebound Status: Fatigue w/ amb., Limited distance walking POST DISCHARGE ORDERS: Activity Instructions for Disc: Activity as tolerated Weight Bearing Status after Di: As tolerated DIET AFTER DISCHARGE: Regular FOLLOW-UP: Follow up with: primary care next available TREATMENT/EQUIPMENT ORDERS: Adaptive Equipment Issued: None CERTIFICATION STATEMENT: Certification Statement: Certification Statement: Based on the above finding, I certify that this patient is confined to the home and needs intermittent chcf care, physical therapy and/or speech therapy, or continues to need occupational therapy.~ This patient is under my care, and I have initiated the establishment of the plan of care.~ This patient will be followed by myself or a community physician who will periodically review the plan of care. Home Meds Active Scripts Riboflavin (RIBOFLAVIN) 100 Mg Tablet, 400 MG PO DAILY for migraine for 30 Days, #120 TAB 5 Refills Prov:ZEKE THURMAN MD 02/06/19 Magnesium Oxide (MAG-OXIDE) 400 Mg Tablet, 1 TAB PO BID for migraine ppx for 30 Days, #60 TAB 5 Refills Prov:ZEKE THURMAN MD 02/06/19 Lubiprostone (AMITIZA) 8 Mcg Capsule, 8 MCG PO PRN DAILY PRN for cons for 30 Days, #30 CAP Prov:ZEKE THURMAN MD 02/06/19 Ketorolac Tromethamine (KETOROLAC TROMETHAMINE) 10 Mg Tablet, 1 TAB PO PRN Q6HRS, #5 TAB Prov:MAGDIEL VELEZ WRAPPER CASER 05/08/16 Reported Medications Melatonin (MELATONIN) 3 Mg Tablet, 20 MG PO HS for insomnia, TAB 03/13/19 Diclofenac Sodium (DICLOFENAC SODIUM) 75 Mg Tablet.dr, #60 10/18/16 Lidocaine (LIDOCAINE) 700 Mg Adh..patch, #10 06/27/16 Lamotrigine (LAMOTRIGINE) 100 Mg Tablet, #30 06/27/16 Duloxetine Hcl (DULOXETINE HCL) 60 Mg Capsule.dr, 120 MG PO DAILY for depression, #60 06/27/16 Metformin Hcl (METFORMIN HCL ER) 500 Mg Tab.er.24h, #120 06/27/16 Pantoprazole Sodium (PANTOPRAZOLE SODIUM ) 40 Mg Tablet.dr, #30 16 Buspirone Hcl (BUSPIRONE HCL) 30 Mg Tablet, #60 16 Dextroamphetamine/Amphetamine (AMPHETAMINE SALTS 20 MG TABLET) 20 Mg Tablet, #60 16 Fluticasone Propionate (FLUTICASONE PROPIONATE NASAL SPRAY) [address] [place].susp, #16 06/27/16 Cyclobenzaprine Hcl (CYCLOBENZAPRINE HCL) 10 Mg Tablet, 1 TAB PO TID, #90 TAB 06/27/16 Gabapentin (GABAPENTIN) 600 Mg Tablet, 1200 MG PO TID, CAP 06/11/15 Discontinued Reported Medications Fexofenadine Hcl (MARY ALLERGY) 180 Mg Tablet, 180 MG PO DAILY, TAB 06/11/15 Discontinued Scripts Methylprednisolone (MEDROL) 4 Mg Tab.ds.pk, 1 PKG PO UD for sciatica for 5 Days, #1 PKG Prov:ZEKE THURMAN MD 02/06/19 Valacyclovir Hcl (VALACYCLOVIR) 500 Mg Tablet, 1000 MG PO BID for herpes for 5 Days, #20 TAB Prov:ZEKE THURMAN MD 02/06/19 Oxycodone/Apap 10-325 (PERCOCET 10-325 MG TABLET ) 1 Each Tablet, 1 TAB PO Q8HRS, #6 TAB DO NOT FILL THIS RX IF SHE HAS FILLED ANY NARCOTICS IN THE LAST SEVEN DAYS MUST FILL CLINDMYCIN PRIOR TO OYXCODONE Prov:CLARK HERNANDEZ APRN 02/10/17 ASHLEY ANGEL MD Mar 14, 2019 11:26
[2019-03-14] MEDS ORDERED: oxyCODONE/APAP 10/325 1 TAB TABLET PO PRN (11:30)
--- NOTE | 2019-03-14 11:32 | PDOC ---
PROGRESS NOTES Chief Complaint Chief Complaint generalized pain fibromyalgia narcotic seeking behavior, requested only IV pain meds, malingering "weakness" reported unable to walk, but could walk OK, refused walker obesity, BMI 40 History of Present Illness History of Present Illness wanted IV pain meds and a bedpan overnight and this morning complained of RN, talked to manager property and still had complaints, and with me that I was not addressing her pain, I discussed that she has declined to take the 10/325 percocet or the toradol. weakness has been widely variable patient seems to be malingering Vitals Vitals Vital Signs Date Time Temp Pulse Resp B/P (MAP) Pulse Ox O2 Delivery O2 Flow Rate FiO2 03/14/19 08:00 Room Air 03/14/19 07:00 98.5 95 17 126/77 (93) 98 98.5 03/13/19 16:22 2.0 Physical Exam General: Alert, Oriented X3, No acute distress Lungs: Clear Abdomen: Normal bowel sounds, Soft, No tenderness, No hepatosplenomegaly, No masses Extremities: No clubbing, No cyanosis, No edema, Normal pulses, No tenderness/swelling Skin: No rashes, No breakdown, No significant lesion Labs LABS Laboratory Tests Test 03/13/19 13:54 03/13/19 15:17 03/13/19 20:42 03/14/19 02:22 White Blood Count 4.9 x10^3/uL (4.0-11.0) Red Blood Count 4.31 x10^6/uL (3.50-5.40) Hemoglobin 12.1 g/dL (12.0-15.5) Hematocrit 36.2 % (36.0-47.0) Mean Corpuscular Volume 84 fL (79-100) Mean Corpuscular Hemoglobin 28 pg (25-35) Mean Corpuscular Hemoglobin Concent 34 g/dL (31-37) Red Cell Distribution Width 15.1 % (11.5-14.5) Platelet Count 245 x10^3/uL (140-400) Neutrophils (%) (Auto) 53 % (31-73) Lymphocytes (%) (Auto) 31 % (24-48) Monocytes (%) (Auto) 14 % (0-9) Eosinophils (%) (Auto) 2 % (0-3) Basophils (%) (Auto) 0 % (0-3) Neutrophils # (Auto) 2.6 x10^3uL (1.8-7.7) Lymphocytes # (Auto) 1.5 x10^3/uL (1.0-4.8) Monocytes # (Auto) 0.7 x10^3/uL (0.0-1.1) Eosinophils # (Auto) 0.1 x10^3/uL (0.0-0.7) Basophils # (Auto) 0.0 x10^3/uL (0.0-0.2) Erythrocyte Sedimentation Rate 19 (0-25) Prothrombin Time 12.6 SEC (11.7-14.0) Prothromb Time International Ratio 1.0 (0.8-1.1) Sodium Level 140 mmol/L (136-145) Potassium Level 4.2 mmol/L (3.5-5.1) Chloride Level 102 mmol/L (98-107) Carbon Dioxide Level 28 mmol/L (21-32) Anion Gap 10 (6-14) Blood Urea Nitrogen 17 mg/dL (7-20) Creatinine 0.9 mg/dL (0.6-1.0) Estimated GFR (Cockcroft-Gault) 80.5 BUN/Creatinine Ratio 19 (6-20) Glucose Level 164 mg/dL (70-99) Calcium Level 9.6 mg/dL (8.5-10.1) Magnesium Level 1.8 mg/dL (1.8-2.4) Total Bilirubin 0.3 mg/dL (0.2-1.0) Aspartate Amino Transf (AST/SGOT) 20 U/L (15-37) Alanine Aminotransferase (ALT/SGPT) 30 U/L (14-59) Alkaline Phosphatase 59 U/L (46-116) Troponin I Quantitative < 0.017 ng/mL (0.000-0.055) PS-Atd-Y-Type Natriuretic Peptide 10 pg/mL (0-124) Total Protein 7.2 g/dL (6.4-8.2) Albumin 3.9 g/dL (3.4-5.0) Albumin/Globulin Ratio 1.2 (1.0-1.7) Lipase 119 U/L (73-393) Thyroid Stimulating Hormone (TSH) 0.417 uIU/mL (0.358-3.74) Free Thyroxine 1.14 ng/dL (0.76-1.46) Urine Collection Type U cath Urine Color Yellow Urine Clarity Clear Urine pH 7.0 Urine Specific [place] 1.025 Urine Protein Negative mg/dL (NEG-TRACE) Urine Glucose (UA) Negative mg/dL (NEG) Urine Ketones (Stick) Negative mg/dL (NEG) Urine Blood Small (NEG) Urine Nitrite Negative (NEG) Urine Bilirubin Negative (NEG) Urine Urobilinogen Dipstick 0.2 mg/dL (0.2 mg/dL) Urine Leukocyte Esterase Negative (NEG) Urine RBC 11-20 /HPF (0-2) Urine WBC Occ /HPF (0-4) Urine Squamous Epithelial Cells Few /LPF Urine Transitional Epithelial Cells Occ /LPF Urine Bacteria 0 /HPF (0-FEW) Urine Opiates Screen Neg (NEG) Urine Methadone Screen Neg (NEG) Urine Barbiturates Neg (NEG) Urine Phencyclidine Screen Neg (NEG) Urine Amphetamine/Methamphetamine Pos (NEG) Urine Benzodiazepines Screen Neg (NEG) Urine Cocaine Screen Neg (NEG) Urine Cannabinoids Screen Neg (NEG) Urine Ethyl Alcohol Neg (NEG) Glucose (Fingerstick) 249 mg/dL (70-99) 99 mg/dL (70-99) Test 03/14/19 06:30 Glucose (Fingerstick) 138 mg/dL (70-99) Review of Systems Review of Systems "severe" leg pain and weakness "I have a high tolerance for pain" "that percocet is like a placebo to me." Assessment and Plan Assessmemt and Plan Problems Medical Problems: (1) Fibromyalgia Status: Acute (2) Weakness generalized Status: Acute Comment Review of Relevant I have reviewed the following items susy (where applicable) has been applied. Labs Laboratory Tests Test 03/13/19 13:54 03/13/19 15:17 03/13/19 20:42 03/14/19 02:22 White Blood Count 4.9 x10^3/uL (4.0-11.0) Red Blood Count 4.31 x10^6/uL (3.50-5.40) Hemoglobin 12.1 g/dL (12.0-15.5) Hematocrit 36.2 % (36.0-47.0) Mean Corpuscular Volume 84 fL (79-100) Mean Corpuscular Hemoglobin 28 pg (25-35) Mean Corpuscular Hemoglobin Concent 34 g/dL (31-37) Red Cell Distribution Width 15.1 % (11.5-14.5) Platelet Count 245 x10^3/uL (140-400) Neutrophils (%) (Auto) 53 % (31-73) Lymphocytes (%) (Auto) 31 % (24-48) Monocytes (%) (Auto) 14 % (0-9) Eosinophils (%) (Auto) 2 % (0-3) Basophils (%) (Auto) 0 % (0-3) Neutrophils # (Auto) 2.6 x10^3uL (1.8-7.7) Lymphocytes # (Auto) 1.5 x10^3/uL (1.0-4.8) Monocytes # (Auto) 0.7 x10^3/uL (0.0-1.1) Eosinophils # (Auto) 0.1 x10^3/uL (0.0-0.7) Basophils # (Auto) 0.0 x10^3/uL (0.0-0.2) Erythrocyte Sedimentation Rate 19 (0-25) Prothrombin Time 12.6 SEC (11.7-14.0) Prothromb Time International Ratio 1.0 (0.8-1.1) Sodium Level 140 mmol/L (136-145) Potassium Level 4.2 mmol/L (3.5-5.1) Chloride Level 102 mmol/L (98-107) Carbon Dioxide Level 28 mmol/L (21-32) Anion Gap 10 (6-14) Blood Urea Nitrogen 17 mg/dL (7-20) Creatinine 0.9 mg/dL (0.6-1.0) Estimated GFR (Cockcroft-Gault) 80.5 BUN/Creatinine Ratio 19 (6-20) Glucose Level 164 mg/dL (70-99) Calcium Level 9.6 mg/dL (8.5-10.1) Magnesium Level 1.8 mg/dL (1.8-2.4) Total Bilirubin 0.3 mg/dL (0.2-1.0) Aspartate Amino Transf (AST/SGOT) 20 U/L (15-37) Alanine Aminotransferase (ALT/SGPT) 30 U/L (14-59) Alkaline Phosphatase 59 U/L (46-116) Troponin I Quantitative < 0.017 ng/mL (0.000-0.055) WG-Afl-S-Type Natriuretic Peptide 10 pg/mL (0-124) Total Protein 7.2 g/dL (6.4-8.2) Albumin 3.9 g/dL (3.4-5.0) Albumin/Globulin Ratio 1.2 (1.0-1.7) Lipase 119 U/L (73-393) Thyroid Stimulating Hormone (TSH) 0.417 uIU/mL (0.358-3.74) Free Thyroxine 1.14 ng/dL (0.76-1.46) Urine Collection Type U cath Urine Color Yellow Urine Clarity Clear Urine pH 7.0 Urine Specific [place] 1.025 Urine Protein Negative mg/dL (NEG-TRACE) Urine Glucose (UA) Negative mg/dL (NEG) Urine Ketones (Stick) Negative mg/dL (NEG) Urine Blood Small (NEG) Urine Nitrite Negative (NEG) Urine Bilirubin Negative (NEG) Urine Urobilinogen Dipstick 0.2 mg/dL (0.2 mg/dL) Urine Leukocyte Esterase Negative (NEG) Urine RBC 11-20 /HPF (0-2) Urine WBC Occ /HPF (0-4) Urine Squamous Epithelial Cells Few /LPF Urine Transitional Epithelial Cells Occ /LPF Urine Bacteria 0 /HPF (0-FEW) Urine Opiates Screen Neg (NEG) Urine Methadone Screen Neg (NEG) Urine Barbiturates Neg (NEG) Urine Phencyclidine Screen Neg (NEG) Urine Amphetamine/Methamphetamine Pos (NEG) Urine Benzodiazepines Screen Neg (NEG) Urine Cocaine Screen Neg (NEG) Urine Cannabinoids Screen Neg (NEG) Urine Ethyl Alcohol Neg (NEG) Glucose (Fingerstick) 249 mg/dL (70-99) 99 mg/dL (70-99) Test 03/14/19 06:30 Glucose (Fingerstick) 138 mg/dL (70-99) Laboratory Tests Test 03/13/19 13:54 03/13/19 15:17 03/13/19 20:42 03/14/19 02:22 White Blood Count 4.9 x10^3/uL (4.0-11.0) Red Blood Count 4.31 x10^6/uL (3.50-5.40) Hemoglobin 12.1 g/dL (12.0-15.5) Hematocrit 36.2 % (36.0-47.0) Mean Corpuscular Volume 84 fL (79-100) Mean Corpuscular Hemoglobin 28 pg (25-35) Mean Corpuscular Hemoglobin Concent 34 g/dL (31-37) Red Cell Distribution Width 15.1 % (11.5-14.5) Platelet Count 245 x10^3/uL (140-400) Neutrophils (%) (Auto) 53 % (31-73) Lymphocytes (%) (Auto) 31 % (24-48) Monocytes (%) (Auto) 14 % (0-9) Eosinophils (%) (Auto) 2 % (0-3) Basophils (%) (Auto) 0 % (0-3) Neutrophils # (Auto) 2.6 x10^3uL (1.8-7.7) Lymphocytes # (Auto) 1.5 x10^3/uL (1.0-4.8) Monocytes # (Auto) 0.7 x10^3/uL (0.0-1.1) Eosinophils # (Auto) 0.1 x10^3/uL (0.0-0.7) Basophils # (Auto) 0.0 x10^3/uL (0.0-0.2) Erythrocyte Sedimentation Rate 19 (0-25) Prothrombin Time 12.6 SEC (11.7-14.0) Prothromb Time International Ratio 1.0 (0.8-1.1) Sodium Level 140 mmol/L (136-145) Potassium Level 4.2 mmol/L (3.5-5.1) Chloride Level 102 mmol/L (98-107) Carbon Dioxide Level 28 mmol/L (21-32) Anion Gap 10 (6-14) Blood Urea Nitrogen 17 mg/dL (7-20) Creatinine 0.9 mg/dL (0.6-1.0) Estimated GFR (Cockcroft-Gault) 80.5 BUN/Creatinine Ratio 19 (6-20) Glucose Level 164 mg/dL (70-99) Calcium Level 9.6 mg/dL (8.5-10.1) Magnesium Level 1.8 mg/dL (1.8-2.4) Total Bilirubin 0.3 mg/dL (0.2-1.0) Aspartate Amino Transf (AST/SGOT) 20 U/L (15-37) Alanine Aminotransferase (ALT/SGPT) 30 U/L (14-59) Alkaline Phosphatase 59 U/L (46-116) Troponin I Quantitative < 0.017 ng/mL (0.000-0.055) JT-Agf-F-Type Natriuretic Peptide 10 pg/mL (0-124) Total Protein 7.2 g/dL (6.4-8.2) Albumin 3.9 g/dL (3.4-5.0) Albumin/Globulin Ratio 1.2 (1.0-1.7) Lipase 119 U/L (73-393) Thyroid Stimulating Hormone (TSH) 0.417 uIU/mL (0.358-3.74) Free Thyroxine 1.14 ng/dL (0.76-1.46) Urine Collection Type U cath Urine Color Yellow Urine Clarity Clear Urine pH 7.0 Urine Specific [place] 1.025 Urine Protein Negative mg/dL (NEG-TRACE) Urine Glucose (UA) Negative mg/dL (NEG) Urine Ketones (Stick) Negative mg/dL (NEG) Urine Blood Small (NEG) Urine Nitrite Negative (NEG) Urine Bilirubin Negative (NEG) Urine Urobilinogen Dipstick 0.2 mg/dL (0.2 mg/dL) Urine Leukocyte Esterase Negative (NEG) Urine RBC 11-20 /HPF (0-2) Urine WBC Occ /HPF (0-4) Urine Squamous Epithelial Cells Few /LPF Urine Transitional Epithelial Cells Occ /LPF Urine Bacteria 0 /HPF (0-FEW) Urine Opiates Screen Neg (NEG) Urine Methadone Screen Neg (NEG) Urine Barbiturates Neg (NEG) Urine Phencyclidine Screen Neg (NEG) Urine Amphetamine/Methamphetamine Pos (NEG) Urine Benzodiazepines Screen Neg (NEG) Urine Cocaine Screen Neg (NEG) Urine Cannabinoids Screen Neg (NEG) Urine Ethyl Alcohol Neg (NEG) Glucose (Fingerstick) 249 mg/dL (70-99) 99 mg/dL (70-99) Test 03/14/19 06:30 Glucose (Fingerstick) 138 mg/dL (70-99) Medications Current Medications Sodium Chloride 1,000 ml @ 1,000 mls/hr Q1H IV Last administered on 03/13/19at 14:06; Start 03/13/19 at 12:37; Stop 03/13/19 at 13:36; Status DC Ketorolac Tromethamine (Toradol 30mg Vial) 30 mg 1X ONCE IV Last administered on 03/13/19at 14:06; Start 03/13/19 at 12:45; Stop 03/13/19 at 12:46; Status DC Iohexol (Omnipaque 300 Mg/ml) 75 ml 1X ONCE IV Last administered on 03/13/19at 14:48; Start 03/13/19 at 14:30; Stop 03/13/19 at 14:32; Status DC Info (CONTRAST GIVEN -- Rx MONITORING) 1 each PRN DAILY PRN MC SEE COMMENTS; Start 03/13/19 at 14:45; Stop 03/15/19 at 14:44 Sodium Chloride 1,000 ml @ 125 mls/hr 1X ONCE IV Last administered on 03/13/19at 20:21; Start 03/13/19 at 16:45; Stop 03/14/19 at 00:44; Status DC Cyclobenzaprine HCl (Flexeril) 10 mg TID PO Last administered on 03/14/19at 08:24; Start 03/13/19 at 21:00 Fluticasone Propionate (Flonase) 1 spray DAILY NS ; Start 03/14/19 at 09:00 Ibuprofen (Motrin) 600 mg TID PO ; Start 03/13/19 at 21:00 Ketorolac Tromethamine (Toradol) 10 mg PRN Q6HRS PO ; Start 03/13/19 at 17:00; Stop 03/13/19 at 20:22; Status DC Lubiprostone (Amitiza) 8 mcg PRN DAILY PRN PO CONTIPATION; Start 03/14/19 at 17:00 Oxycodone/ Acetaminophen (Percocet 10/325) 1 tab PRN Q8HRS PRN PO PAIN Last administered on 03/13/19at 20:23; Start 03/13/19 at 20:14 Pantoprazole Sodium (Protonix) 40 mg DAILY07 PO Last administered on 03/14/19at 07:30; Start 03/14/19 at 07:00 Cetirizine HCl (ZyrTEC) 10 mg DAILY PO Last administered on 03/14/19at 08:25; Start 03/14/19 at 09:00 Gabapentin (Neurontin) 800 mg TID PO Last administered on 03/14/19at 08:24; Start 03/13/19 at 21:00 Magnesium Oxide (Magnesium Oxide) 400 mg BID PO Last administered on 03/14/19at 08:24; Start 03/13/19 at 21:00 Paroxetine HCl (Paxil) 60 mg DAILY PO ; Start 03/14/19 at 09:00 Duloxetine HCl (Cymbalta) 30 mg DAILY PO ; Start 03/14/19 at 09:00 Metformin HCl (Glucophage Xr) 500 mg DAILYWBKFT PO ; Start 03/16/19 at 08:00 Insulin Human Lispro (HumaLOG) 0-9 UNITS TIDWMEALS SQ ; Start 03/14/19 at 08:00 Dextrose (Dextrose 50%-Water Syringe) 12.5 gm PRN Q15MIN PRN IV SEE COMMENTS; Start 03/13/19 at 17:00 Acetaminophen (Tylenol) 500 mg PRN Q6HRS PRN PO HEADACHE / TEMP; Start 03/13/19 at 17:00 Ondansetron HCl (Zofran) 4 mg PRN Q6HRS PRN IV NAUSEA/VOMITING; Start 03/13/19 at 17:00 Alprazolam (Xanax) 0.25 mg PRN QHS PRN PO sleep Last administered on 03/13/19at 22:36; Start 03/13/19 at 17:00 Ketorolac Tromethamine (Toradol 15mg Vial) 15 mg PRN Q6HRS PRN IV PAIN MILD Last administered on 03/13/19at 22:30; Start 03/13/19 at 20:30; Stop 03/18/19 at 20:29 Diphenhydramine HCl (Benadryl) 50 mg 1X ONCE PO Last administered on 03/14/19at 03:31; Start 03/14/19 at 03:30; Stop 03/14/19 at 03:31; Status DC Active Scripts Active Riboflavin 100 Mg Tablet 400 Mg PO DAILY 30 Days Mag-Oxide (Magnesium Oxide) 400 Mg Tablet 1 Tab PO BID 30 Days Amitiza (Lubiprostone) 8 Mcg Capsule 8 Mcg PO PRN DAILY PRN 30 Days Ketorolac Tromethamine 10 Mg Tablet 1 Tab PO PRN Q6HRS Reported Melatonin 3 Mg Tablet 20 Mg PO HS Diclofenac Sodium 75 Mg Tablet. Lidocaine 700 Mg Adh..patch Lamotrigine 100 Mg Tablet Duloxetine Hcl 60 Mg Capsule. 120 Mg PO DAILY Metformin Hcl Er (Metformin Hcl) 500 Mg Tab.er.24h Pantoprazole Sodium (Pantoprazole Sodium) 40 Mg Tablet. Buspirone Hcl 30 Mg Tablet Amphetamine Salts 20 Mg Tablet (Dextroamphetamine/Amphetamine) 20 Mg Tablet Fluticasone Propionate Nasal [place] (Fluticasone Propionate) 16 Gm [place].susp Cyclobenzaprine Hcl 10 Mg Tablet 1 Tab PO TID Gabapentin 600 Mg Tablet 1,200 Mg PO TID Vitals/I & O Vital Sign - Last 24 Hours 03/13/19 03/13/19 03/13/19 03/13/19 12:25 12:59 13:59 14:29 Temp 99.5 99.5 Pulse 102 102 Resp 18 18 B/P (MAP) 150/83 (105) 157/91 (113) 134/84 (101) 144/92 (109) Pulse Ox 99 99 O2 Delivery Room Air Room Air 03/13/19 03/13/19 03/13/19 03/13/19 14:43 15:13 15:45 16:22 Temp 97.9 97.3 Pulse 100 102 78 87 Resp 20 18 18 B/P (MAP) 145/86 (105) 126/73 (90) 130/60 (83) 128/60 Pulse Ox 98 O2 Delivery Room Air O2 Flow Rate 2.0 03/13/19 03/13/19 03/13/19 03/13/19 16:45 19:00 19:00 20:00 Temp 98.5 98.5 98.5 98.5 Pulse 100 105 105 Resp 18 18 18 B/P (MAP) 142/72 (95) 106/65 (79) 106/65 (79) Pulse Ox 99 95 95 O2 Delivery Room Air Room Air Room Air Room Air 03/13/19 03/14/19 03/14/19 03/14/19 22:48 02:36 07:00 08:00 Temp 99.4 98.4 98.5 99.4 98.4 98.5 Pulse 79 93 95 Resp 18 17 17 B/P (MAP) 126/84 (98) 107/69 (82) 126/77 (93) Pulse Ox 96 95 98 O2 Delivery Room Air Room Air Room Air Room Air Intake and Output 03/13/19 03/13/1903/14/19 15:00 23:00 07:00 Intake Total 100 ml 800 ml Balance 100 ml 800 ml ASHLEY ANGEL MD Mar 14, 2019 11:32
[2019-03-14] MEDS: KETOROLAC 15 MG/ML VIAL. IV PRN (12:37)
--- NOTE | 2019-03-14 13:00 | NUR ---
pt very upset about not receiving IV narcotics. offered toradol and percocet, which she refused both. pt asking for patient advocate. adrian, rn nurse quality systems manager in to see patient, who then stated she would be appealing any discharge as she is on medicare. Pt then requested the "patient advocate's boss". Dr. Delgadillo rounded on patient and discussed discharge, pt continued to state she would appeal. Social work informed and said that since she is obs status, appealing is not an option. Jaelyn Crawford in to see patient to discuss matter as well. pt then agreeable to taking percocet and toradol. pt then signed discharge paperwork. iv removed, cath intact. cab company called. pt stable upon dc.
--- NOTE | 2019-03-14 14:12 | NUR ---
Post dc note: [facility] notified by RN, pt had chosen [facility]. [facility] phone and faxed orders to [facility].
[2019-03-14] MEDS ORDERED: LUBIPROSTONE 8 MCG CAPSULE PO PRN (17:00)
[2019-03-15 03:12] LABS: HEMOGLOBIN A1C 7.9 % (4.8-5.6)
--- NOTE | 2019-03-15 13:50 | PDOC3 ---
Discharge Summary Visit Information Date of Admission: Mar 13, 2019 Date of Discharge: Mar 14, 2019 Final Diagnosis generalized pain fibromyalgia narcotic seeking behavior, requested only IV pain meds, malingering "weakness" reported unable to walk, but could walk OK, refused walker obesity, BMI 40 Problems Medical Problems: (1) Fibromyalgia Status: Acute (2) Weakness generalized Status: Acute Brief Hospital Course Allergies Allergies Coded Allergies Type Severity Reaction Last Updated Verified NSAIDS (Non-Steroidal Anti-Inflamma Allergy Intermediate HIVES 03/13/19 Yes Sulfa (Sulfonamide Antibiotics) Allergy Intermediate Itching 02/05/19 Yes hydrocodone Allergy Intermediate Itching 02/05/19 Yes sulfamethoxazole Allergy Intermediate itching 06/27/16 Yes trimethoprim Allergy Intermediate itching 06/27/16 Yes I S O L A T I O N *CONTACT* Allergy Unknown 08/25/15 Yes Vital Signs Vital Signs Date Time Temp Pulse Resp B/P (MAP) Pulse Ox O2 Delivery O2 Flow Rate FiO2 03/14/19 12:36 Room Air 03/14/19 11:00 98.4 98 18 125/74 (91) 97 98.4 Lab Results Laboratory Tests Test 03/13/19 13:54 03/13/19 15:17 03/13/19 20:42 03/13/19 22:20 White Blood Count 4.9 x10^3/uL (4.0-11.0) Red Blood Count 4.31 x10^6/uL (3.50-5.40) Hemoglobin 12.1 g/dL (12.0-15.5) Hematocrit 36.2 % (36.0-47.0) Mean Corpuscular Volume 84 fL (79-100) Mean Corpuscular Hemoglobin 28 pg (25-35) Mean Corpuscular Hemoglobin Concent 34 g/dL (31-37) Red Cell Distribution Width 15.1 % (11.5-14.5) Platelet Count 245 x10^3/uL (140-400) Neutrophils (%) (Auto) 53 % (31-73) Lymphocytes (%) (Auto) 31 % (24-48) Monocytes (%) (Auto) 14 % (0-9) Eosinophils (%) (Auto) 2 % (0-3) Basophils (%) (Auto) 0 % (0-3) Neutrophils # (Auto) 2.6 x10^3uL (1.8-7.7) Lymphocytes # (Auto) 1.5 x10^3/uL (1.0-4.8) Monocytes # (Auto) 0.7 x10^3/uL (0.0-1.1) Eosinophils # (Auto) 0.1 x10^3/uL (0.0-0.7) Basophils # (Auto) 0.0 x10^3/uL (0.0-0.2) Erythrocyte Sedimentation Rate 19 (0-25) Prothrombin Time 12.6 SEC (11.7-14.0) Prothromb Time International Ratio 1.0 (0.8-1.1) Sodium Level 140 mmol/L (136-145) Potassium Level 4.2 mmol/L (3.5-5.1) Chloride Level 102 mmol/L (98-107) Carbon Dioxide Level 28 mmol/L (21-32) Anion Gap 10 (6-14) Blood Urea Nitrogen 17 mg/dL (7-20) Creatinine 0.9 mg/dL (0.6-1.0) Estimated GFR (Cockcroft-Gault) 80.5 BUN/Creatinine Ratio 19 (6-20) Glucose Level 164 mg/dL (70-99) Hemoglobin A1c 7.9 % (4.8-5.6) Calcium Level 9.6 mg/dL (8.5-10.1) Magnesium Level 1.8 mg/dL (1.8-2.4) Total Bilirubin 0.3 mg/dL (0.2-1.0) Aspartate Amino Transf (AST/SGOT) 20 U/L (15-37) Alanine Aminotransferase (ALT/SGPT) 30 U/L (14-59) Alkaline Phosphatase 59 U/L (46-116) Troponin I Quantitative < 0.017 ng/mL (0.000-0.055) UX-Ehd-F-Type Natriuretic Peptide 10 pg/mL (0-124) Total Protein 7.2 g/dL (6.4-8.2) Albumin 3.9 g/dL (3.4-5.0) Albumin/Globulin Ratio 1.2 (1.0-1.7) Lipase 119 U/L (73-393) Thyroid Stimulating Hormone (TSH) 0.417 uIU/mL (0.358-3.74) Free Thyroxine 1.14 ng/dL (0.76-1.46) Urine Collection Type U cath Urine Color Yellow Urine Clarity Clear Urine pH 7.0 Urine Specific [place] 1.025 Urine Protein Negative mg/dL (NEG-TRACE) Urine Glucose (UA) Negative mg/dL (NEG) Urine Ketones (Stick) Negative mg/dL (NEG) Urine Blood Small (NEG) Urine Nitrite Negative (NEG) Urine Bilirubin Negative (NEG) Urine Urobilinogen Dipstick 0.2 mg/dL (0.2 mg/dL) Urine Leukocyte Esterase Negative (NEG) Urine RBC 11-20 /HPF (0-2) Urine WBC Occ /HPF (0-4) Urine Squamous Epithelial Cells Few /LPF Urine Transitional Epithelial Cells Occ /LPF Urine Bacteria 0 /HPF (0-FEW) Urine Opiates Screen Neg (NEG) Urine Methadone Screen Neg (NEG) Urine Barbiturates Neg (NEG) Urine Phencyclidine Screen Neg (NEG) Urine Amphetamine/Methamphetamine Pos (NEG) Urine Benzodiazepines Screen Neg (NEG) Urine Cocaine Screen Neg (NEG) Urine Cannabinoids Screen Neg (NEG) Urine Ethyl Alcohol Neg (NEG) Glucose (Fingerstick) 249 mg/dL (70-99) Nasal Screen MRSA (PCR) Negative (Negative) Test 03/14/19 02:22 03/14/19 06:30 03/14/19 11:35 Glucose (Fingerstick) 99 mg/dL (70-99) 138 mg/dL (70-99) 208 mg/dL (70-99) Brief Hospital Course Ms. Ham is a 48 old admit for pain and weakness, she came from a hotel right next to , and when asked why she didn't go there :"they dont admit me there" wanted IV pain meds and a bedpan overnight and int the morning complained of RN, talked to remarketing manager and still had complaints, and with me that I was not addressing her pain, she declined to take percocet or toradol. Told the RN, " I will just take them to humor you if you want" weakness has been widely variable patient seems to be malingering Discharge Information Condition at Discharge: Improved Follow Up: Weeks Disposition/Orders: D/C to Home Scheduled Cyclobenzaprine Hcl (Cyclobenzaprine Hcl) 10 Mg Tablet, 1 TAB PO TID, #90 (Reported) Entered as Reported by: HI DE LEON on 06/27/16 1500 Last Action: Continued on 03/13/191649 by ADDISON NEVAREZ Duloxetine Hcl (Duloxetine Hcl) 60 Mg Capsule.dr, 120 MG PO DAILY for depression, #60 (Reported) Entered as Reported by: ARABELLA PEREYRA on 06/27/16 2339 Last Action: Edited on 03/14/19 1122 by PRASHANT TROY Gabapentin (Gabapentin) 600 Mg Tablet, 1,200 MG PO TID, (Reported) Entered as Reported by: LUIS DONG on 06/11/15 0416 Last Action: HELD on 03/13/191649 by ADDISON NEVAREZ Ketorolac Tromethamine (Ketorolac Tromethamine) 10 Mg Tablet, 1 TAB PO PRN Q6HRS, #5 Prescribed by: MAGDIEL VELEZ APRN on 05/08/16 1531 Last Action: Continued on 03/13/191649 by ADDISON NEVAREZ Magnesium Oxide (Mag-Oxide) 400 Mg Tablet, 1 TAB PO BID for migraine ppx for 30 Days, #60 Ref 5 Prescribed by: ZEKE THURMAN MD on 02/06/19 1526 Last Action: Converted on 03/13/191649 by ADDISON NEVAREZ Melatonin (Melatonin) 3 Mg Tablet, 20 MG PO HS for insomnia, (Reported) Entered as Reported by: BUNNY HARRY on 03/13/192041 Last Taken: Unknown Dose on 03/12/19 Last Action: New Order on 03/13/192041 by BUNNY HARRY Riboflavin (Riboflavin) 100 Mg Tablet, 400 MG PO DAILY for migraine for 30 Days, #120 Ref 5 Prescribed by: ZEKE THURMAN MD on 02/06/19 1526 Last Action: HELD on 03/13/191649 by ADDISON NEVAREZ Scheduled PRN Lubiprostone (Amitiza) 8 Mcg Capsule, 8 MCG PO PRN DAILY PRN for cons for 30 Days, #30 Prescribed by: ZEKE THURMAN MD on 02/06/19 1525 Last Action: Continued on 03/13/191649 by ADDISON NEVAREZ Miscellaneous Medications Buspirone Hcl (Buspirone Hcl) 30 Mg Tablet, #60 (Reported) Entered as Reported by: ARABELLA PEREYRA on 06/27/162338 Last Action: HELD on 03/13/191649 by ADDISON NEVAREZ Dextroamphetamine/Amphetamine (Amphetamine Salts 20 Mg Tablet) 20 Mg Tablet, #60 (Reported) Entered as Reported by: ARABELLA PEREYRA on 06/27/162338 Last Action: HELD on 03/13/191649 by ADDISON NEVAREZ Diclofenac Sodium (Diclofenac Sodium) 75 Mg Tablet.dr, #60 (Reported) Entered as Reported by: ARABELLA PEREYRA on 06/27/162338 Last Action: HELD on 03/13/191649 by ADDISON NEVAREZ Fluticasone Propionate (Fluticasone Propionate Nasal [place]) 16 Gm [place].susp, #16 (Reported) Entered as Reported by: ARABELLA PEREYRA on 06/27/162338 Last Action: Continued on 03/13/191649 by ADDISON NEVAREZ Lamotrigine (Lamotrigine) 100 Mg Tablet, #30 (Reported) Entered as Reported by: ARABELLA PEREYRA on 06/27/162338 Last Action: HELD on 03/13/191649 by ADDISON NEVAREZ Lidocaine (Lidocaine) 700 Mg Adh..patch, #10 (Reported) Entered as Reported by: ARABELLA PEREYRA on 06/27/162338 Last Action: HELD on 03/13/191649 by ADDISON NEVAREZ Metformin Hcl (Metformin Hcl Er) 500 Mg Tab.er.24h, #120 (Reported) Entered as Reported by: ARABELLA PEREYRA on 06/27/162338 Last Action: Converted on 03/13/191649 by ADDISON NEVAREZ Pantoprazole Sodium (Pantoprazole Sodium ) 40 Mg Tablet.dr, #30 (Reported) Entered as Reported by: ARABELLA PEREYRA on 06/27/162338 Last Action: Continued on 03/13/191649 by ADDISON NEVAREZ Discontinued Medications Fexofenadine Hcl (Carrie Allergy) 180 Mg Tablet, 180 MG PO DAILY, (Reported) Entered as Reported by: LUIS DONG on 06/11/15415 Last Action: Discontinued on 03/13/192040 by BUNNY HARRY Methylprednisolone (Medrol) 4 Mg Tab.ds.pk, 1 PKG PO UD for sciatica for 5 Days, #1 Prescribed by: ZEKE THURMAN MD on 02/06/191524 Last Action: HELD on 03/13/191649 by ADDISON NEVAREZ Oxycodone/Apap 10-325 (Percocet 10-325 Mg Tablet ) 1 Each Tablet, 1 TAB PO Q8HRS, #6 DO NOT FILL THIS RX IF SHE HAS FILLED ANY NARCOTICS IN THE LAST SEVEN DAYS MUST FILL CLINDMYCIN PRIOR TO OYXCODONE Prescribed by: Fouzia Oliva APRN on 02/10/17 1643 Last Action: Continued on 03/13/191649 by ADDISON NEVAREZ Valacyclovir Hcl (Valacyclovir) 500 Mg Tablet, 1,000 MG PO BID for herpes for 5 Days, #20 Prescribed by: ZEKE THURMAN MD on 02/06/191524 Last Action: HELD on 03/13/191649 by ADDISON NEVAREZ Patient Instructions Patient Instructions > 30 min 2 visits, ASHLEY ANGEL MD Mar 15, 2019 13:49
[2019-03-16] MEDS ORDERED: metFORMIN XR 500 MG TAB.ER.24H PO SCH (08:00)
== END 2019-03-14 13:46 | disposition home health service (06) ==
LOC: ER 12:25 → 5 SOUTH 16:30
PROVIDERS: ADMIT Internal Medicine; ATTEND Internal Medicine
DX: R53.1 Weakness (principal); F41.9 Anxiety disorder, unspecified; F32.9 Major depressive disorder, single episode, unspecified; I10 Essential (primary) hypertension; E66.01 Morbid (severe) obesity due to excess calories; M79.7 Fibromyalgia; K21.9 Gastro-esophageal reflux disease without esophagitis; G43.909 Migraine, unspecified, not intractable, without status migrainosus; F43.10 Post-traumatic stress disorder, unspecified; Z90.13 Acquired absence of bilateral breasts and nipples; E11.42 Type 2 diabetes mellitus with diabetic polyneuropathy; M54.40 Lumbago with sciatica, unspecified side; Z98.890 Other specified postprocedural states; Z85.42 Personal history of malignant neoplasm of other parts of uterus; Z85.3 Personal history of malignant neoplasm of breast; Z76.5 Malingerer [conscious simulation]; Z90.710 Acquired absence of both cervix and uterus; Z68.30 Body mass index [BMI] 30.0-30.9, adult
CPT/HCPCS: 36415; 74177; 80053; 80307; 81001; 82962; 83036; 83690; 83735; 83880; 84439; 84443; 84484; 85025; 85610; 85651; 87641; 93005; 96374; 96376; 97162; 97166; 99284; G0378; J1885; J7030; Q0163; Q9967; G0379

== ENCOUNTER 2021-01-08 12:37 | Inpatient (IN) | payer BC, MEDICARE ==
[~2021-01-08] VITALS: Ht 172.7 cm; Wt 128.6 kg
[~2021-01-08 12:37] MED LIST changes: -CLIN150C14 PO; +CLIN150C15 PO; -DULO60CA44 PO; +DULO60CA45 PO; -LAMO100T; +LAMO100T8; +MELA3TAB4 PO; +METF-658; -METF500T9; +OMEP40CA45 PO; -OMEP40CA5 PO; -VALA500T; -VALA500T PO; +VALA500T9; +VALA500T9 PO
[2021-01-08] MEDS ORDERED: PROCHLORPERAZINE 10 MG/2 ML VIAL. IV ONE (13:00)
[2021-01-08] MEDS ORDERED: fentaNYL PF VIAL 100 MCG/2 ML VIAL IVP ONE (13:00)
--- NOTE | 2021-01-08 13:33 | PHYS DOC ---
Past Medical History Past Medical History: Anxiety, Cancer, Depression, Diabetes-Type II, Fibr omyalgia, Hypertension, Migraines, Sciatica, Other Additional Past Medical Histor: morbid obesity,breast and uterine cancer, neuropathy,PTSD, Herpies zoster (MAGDIEL SILVESTRE MANAGER OF CHANGE) Past Surgical History: Cancer Surgery, Hysterectomy, Tonsillectomy Additional Past Surgical Histo: bilateral mastectomy, breast reconstruction,gastric sleeve (MAGDIEL SILVESTRE MANAGER OF CHANGE) Smoking Status: Never Smoker Alcohol Use: None Drug Use: None (MAGDIEL SILVESTRE MANAGER OF CHANGE) General Adult EDM: Chief Complaint: MULTIPLE COMPLAINTS HPI: HPI: Patient is a 50 year old female who presents with here from [facility] with a headache that started at 7:00 this morning the she states feels like her usual migraines. She states they gave her Imitrex, tramadol, Zofran, lorazepam and Fioricet. She states that is not gotten any better. She states she then started getting left-sided facial droop, left-sided leg and arm weakness. She also has a sensitivity and nausea. States 11:00 she began having chest pressure and shortness of breath. Patient is rating her pain an 9 out of 10. Patient has a history of anxiety, bipolar, depression, diabetes, breast cancer and uterine cancer with surgeries, neuropathy, PTSD, herpes, hypertension, fibromyalgia, sciatica, mastectomy, gastric sleeve, hysterectomy. She states in the past with her migraines she has had right-sided facial droop and weakness. Currently in the ED she has right leg, left leg and left arm weakness. 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 She was seen at [facility] recently for palpitations and migraines. (MAGDIEL SILVESTRE MANAGER OF CHANGE) Review of Systems: Review of Systems: Constitutional: Denies fever or chills. [] Eyes: Denies change in visual acuity. [] HENT: Denies nasal congestion or sore throat. [] Respiratory: Denies cough or +shortness of breath. [] Cardiovascular: + chest pain or denies edema. [] GI: Denies abdominal pain, +nausea, denies vomiting, bloody stools or diarrhea. [] : Denies dysuria. [] Musculoskeletal: Denies back pain or joint pain. + Generalized weakness [] Integument: Denies rash. [] Neurologic: + headache, left leg, +left arm, +right leg focal weakness or denies sensory changes. [] Endocrine: Denies polyuria or polydipsia. [] Lymphatic: Denies swollen glands. [] Psychiatric: Denies depression or anxiety. [] (MAGDIEL SILVESTRE APRN) Heart Score: C/O Chest Pain: Yes HEART Score for Chest Pain: HEART Score for Chest Pain Response (Comments) Value History Slighlty/Non-Suspicious 0 ECG Normal 0 Age >45 - < 65 1 Risk Factors >3 Risk Factors or Hx CAD 2 Troponin < Normal Limit 0 Total 3 Risk Factors: Risk Factors: DM, Current or recent (<one month) smoker, HTN, HLP, family history of CAD, obesity. Risk Scores: Score 0 - 3: 2.5% MACE over next 6 weeks - Discharge Home Score 4 - 6: 20.3% MACE over next 6 weeks - Admit for Clinical Observation Score 7 - 10: 72.7% MACE over next 6 weeks - Early Invasive Strategies (MAGDIEL SILVESTRE APRN) Current Medications: Current Medications Medications (Trade) Dose Ordered Sig/[place] Start Time Stop Time Status Last Admin Dose Admin Fentanyl Citrate (Fentanyl 2ml Vial) 50 mcg 1X ONCE 01/08/21 13:00 01/08/21 13:01 DC Prochlorperazine Edisylate (Compazine) 10 mg 1X ONCE 01/08/21 13:00 01/08/21 13:01 DC (MAGDIEL SILVESTRE APRN) Allergies: Allergies: Allergies Coded Allergies Type Severity Reaction Last Updated Verified NSAIDS (Non-Steroidal Anti-Inflamma Allergy Intermediate HIVES 03/13/19 Yes Sulfa (Sulfonamide Antibiotics) Allergy Intermediate Itching 02/05/19 Yes hydrocodone Allergy Intermediate Itching 02/05/19 Yes sulfamethoxazole Allergy Intermediate itching 06/27/16 Yes trimethoprim Allergy Intermediate itching 06/27/16 Yes I S O L A T I O N *CONTACT* Allergy Unknown 08/25/15 Yes (MAGDIEL SILVESTRE APRN) Physical Exam: PE: Constitutional: Well developed, well nourished, no acute distress, non-toxic a ppearance. [] HENT: Normocephalic, atraumatic, bilateral external ears normal, oropharynx moist, no oral exudates, nose normal. Left-sided facial droop [] Eyes: PERRLA, EOMI, conjunctiva normal, no discharge. Sensitivity, nystagmus [] Neck: Normal range of motion, no tenderness, supple, no stridor. [] Cardiovascular:Heart rate tachycardia regular rhythm, no murmur [] Lungs & Thorax: Bilateral upper breath sounds clear lower diminished to auscultation [] Abdomen: Bowel sounds normal, soft, no tenderness, no masses, no pulsatile masses. [] Skin: Warm, dry, no erythema, no rash. [] Back: No tenderness, no CVA tenderness. [] Extremities: No tenderness, no cyanosis, no clubbing, ROM intact, no edema. [] Neurologic: Alert and oriented X 3, left leg, left arm, right leg motor function, normal sensory function, left leg, left arm, right leg focal deficits noted. [] Psychologic: Affect normal, judgement normal, mood normal. [] (MAGDIEL SILVESTRE APRN) EKG: EK and read by Dr. Yeung is sinus tachycardia no STEMI. [] (MAGDIEL SILVESTRE APRN) Radiology/Procedures: Radiology/Procedures: [] Impression: [facility] [address] [place] [address] IMAGING REPORT Signed PATIENT: KORTNEY ROSALES ACCOUNT: [id number] : 1970 LOCATION: ER AGE: 50 SEX: F EXAM STATUS: REG ER ORD. PHYSICIAN: MAGDIEL SILVESTRE APRN REASON: headache, weaknes PROCEDURE: CT HEAD WO CONTRAST Exam Date: 01/08/2021 1:[address] HEAD/BRAIN WO Indication: Reason: headache, weaknes / Spl. Instructions: / History: TECHNIQUE: Head CT was performed without intravenous contrast. One or more of the following dose reduction techniques were utilized: *Automated exposure control (AEC) *Adjustment of mA and/or kV according to patient size *Use of iterative reconstruction technique *CT scan done according to ALARA, or ALARA/IMAGE GENTLY COMPARISON: February 05, 2019 FINDINGS: The ventricles and sulci are normal for the patient's stated age. There is no evidence of acute intracranial hemorrhage, extra-axial collection, mass effect, midline shift, or acute territorial infarct. No lesion of the skull base or the calvarium is seen. The visualized paranasal sinuses, mastoid air cells and orbits are normal in appearance. IMPRESSION: No evidence for acute intracranial abnormality. Electronically signed by: Mar Andre MD (01/08/2021 1:37 PM) [id number] DICTATED and SIGNED BY: MAR ANDRE MD DATE: 01/08/21 [id number] [facility] [address] [place], [place] [id number] IMAGING REPORT Signed PATIENT: KORTNEY ROSALES ACCOUNT: [id number] : 1970 LOCATION: ER AGE: 50 SEX: F EXAM STATUS: REG ER ORD. PHYSICIAN: MAGDIEL SILVESTRE APRN REASON: chest pain PROCEDURE: PORTABLE CHEST 1V Exam Date: 01/08/2021 1:13 PM XR CHEST 1V Indication: Reason: chest pain / Spl. Instructions: / History: Comparison: February 05, 2019 FINDINGS/ IMPRESSION: There is persistent elevation of the right hemidiaphragm. The cardiac silhouette is borderline enlarged without congestion. There is no focal consolidation, pleural effusion or pneumothorax. Electronically signed by: Mar Andre MD (01/08/2021 1:44 PM) [id number] DICTATED and SIGNED BY: MAR ANDRE MD DATE: 01/08/21 [id number] (MAGDIEL SILVESTRE APRN) Course & Med Decision Making: Course & Med Decision Making Pertinent Labs and Imaging studies reviewed. (See chart for details) See HPI. Speaks in full complete sentences. [place] warm and dry. She is alert and oriented x4. Left-sided droop noted. Bilateral lower legs have no motor function if he cannot lift them. Left arm she is able to raise and hold about longterm. Patient is unable to open her eyes really wider close and really tight. Nystagmus present. Pupils are equal and reactive. Upper lungs bilaterally are clear and lower are diminished. See NIH. 1328: Patient is brought back from CT and she states that she can start to move her legs a little. 1430: Patient's stroke symptoms have resolved except for her headache is worsening. Her headache has never totally gone away. She is given Compazine and fentanyl. She states that the chest pressure has gotten slightly better. Patient admitted to hospitalist. [] (MAGDIEL SILVESTRE APRN) Dragon Disclaimer: Dragon Disclaimer: This electronic medical record was generated, in whole or in part, using a voice recognition dictation system. (MAGDIEL SILVESTRE APRN) NIHSS Stroke Scale NIH Stroke Scale: NIH Stroke Scale Response (Comments) Value Level of Consciousness: 0 Alert/Responsive 0 LOC Questions: 0 Answers both correctly 0 LOC Commands: 1 Performs one task 1 Best Gaze: 0 Normal 0 Visual: 0 No visual loss 0 Facial Palsy: 2 Partial paralysis 2 Motor - Left Arm 2 Some effort 2 Motor - Right Arm 0 No drift 0 Motor - Left Leg 3 Limb falls 3 Motor: Right Leg 3 Limb falls 3 Limb Ataxia: 2 Two limbs 2 Sensory: 0 No loss 0 Best Language: 0 Normal 0 Dysathria: 0 Normal 0 Extinction and Inattention: 0 Normal 0 Total 13 Departure Departure Impression: Primary Impression: Migraine Qualified Codes: G43.901 - Migraine, unspecified, not intractable, with stat us migrainosus Additional Impression: Chest pain Qualified Codes: R07.9 - Chest pain, unspecified Disposition: 09 ADMITTED INPATIENT Admitting Physician: GARRET (MAGDIEL SILVESTRE APRN) Condition: STABLE Referrals: TRINIDAD RODAS (PCP) Attending Signature Attending Signature I have participated in the care of this patient and I have reviewed and agree with all pertinent clinical information above including history, exam, and recommendations. (ESSENCE YEUNG DO) MAGDIEL SILVESTRE APRN January 08, 2021 13:32 ESSENCE YEUNG DO January 10, 2021 17:46
--- NOTE | 2021-01-08 13:40 | RAD ---
Exam Date: 01/08/2021 1:[address] HEAD/BRAIN WO Indication: Reason: headache, weaknes / Spl. Instructions: / History: TECHNIQUE: Head CT was performed without intravenous contrast. One or more of the following dose re duction techniques were utilized: *Automated exposure control (AEC) *Adjustment of mA and/or kV according to patient size *Use of iterative reconstruction technique *CT scan done according to ALARA, or ALARA/IMAGE GENTLY COMPARISON: February 05, 2019 FINDINGS: The ventricles and sulci are normal for the patient's stated age. There is no evidence of acute int racranial hemorrhage, extra-axial collection, mass effect, midline shift, or acute territorial infarc t. No lesion of the skull base or the calvarium is seen. The visualized paranasal sinuses, mastoid ai r cells and orbits are normal in appearance. IMPRESSION: No evidence for acute intracranial abnormality. Electronically signed by: Garrison Andre MD (01/08/2021 1:37 PM) [id number]
--- NOTE | 2021-01-08 13:46 | RAD ---
Exam Date: 01/08/2021 1:13 PM XR CHEST 1V Indication: Reason: chest pain / Spl. Instructions: / History: Comparison: February 05, 2019 FINDINGS/ IMPRESSION: There is persistent elevation of the right hemidiaphragm. The cardiac silhouette is borderline enlarged without congestion. There is no focal consolidation, pleural effusion or pneumothorax. Electronically signed by: Garrison Andre MD (01/08/2021 1:44 PM) [id number]
[2021-01-08 14:00] LABS: BASO # 0.1 x10^3/uL (0.0-0.2); BASO % 1 % (0-3); EOS # 0.1 x10^3/uL (0.0-0.7); EOS % 2 % (0-3); HEMATOCRIT 41.6 % (36.0-47.0); LYMPH # 1.9 x10^3/uL (1.0-4.8); LYMPH % 30 % (24-48); MEAN CORPUSCULAR HEMOGLOBIN 29 pg (25-35); MEAN CORPUSCULAR HGB CONC 34 g/dL (31-37); MEAN CORPUSCULAR VOLUME 87 fL (79-100); MONO # 0.7 x10^3/uL (0.0-1.1); MONO % 11 % (0-9); NEUT # 3.5 x10^3/uL (1.8-7.7); NEUT % 56 % (31-73); PLATELET COUNT 298 x10^3/uL (140-400); RED BLOOD COUNT 4.77 x10^6/uL (3.50-5.40); WHITE BLOOD COUNT 6.3 x10^3/uL (4.0-11.0)
[2021-01-08 14:12] LABS: CALCIUM 9.4 mg/dL (8.5-10.1); GFR 70.7; POTASSIUM 4.3 mmol/L (3.5-5.1)
[2021-01-08 14:17] LABS: ALBUMIN 4.1 g/dL (3.4-5.0); ALBUMIN/GLOBULIN RATIO 1.1 (1.0-1.7); MAGNESIUM 2.1 mg/dL (1.8-2.4); TOTAL BILIRUBIN 0.2 mg/dL (0.2-1.0); TOTAL PROTEIN 7.8 g/dL (6.4-8.2)
[2021-01-08 14:23] LABS: PROTHROMBIN TIME PATIENT 11.8 SEC (11.7-14.0)
[2021-01-08] MEDS: MORPHINE SULFATE 4 MG/ML VIAL. IV PRN (18:00)
[2021-01-08] MEDS ORDERED: SUMA50TA3 PO (18:43)
[2021-01-08] MEDS ORDERED: OMEP20CA16 PO (18:43)
[2021-01-08] MEDS ORDERED: BISA10SU55 RC (18:43)
[2021-01-08] MEDS ORDERED: MELA10TA3 PO (18:43)
[2021-01-08] MEDS ORDERED: METF10007 PO (18:43)
[2021-01-08] MEDS ORDERED: DIPH25TA24 PO (18:43)
[2021-01-08] MEDS ORDERED: TRAM100T2 PO (18:43)
[2021-01-08] MEDS ORDERED: GABA800T5 PO (18:43)
[2021-01-08] MEDS ORDERED: POLY17PO29 PO (18:43)
[2021-01-08] MEDS ORDERED: SENN1TAB62 PO (18:43)
[2021-01-08] MEDS ORDERED: LOSA100T14 PO (18:43)
[2021-01-08] MEDS ORDERED: METO-239 PO (18:43)
[2021-01-08] MEDS ORDERED: AMIT10TA PO (18:43)
[2021-01-08] MEDS ORDERED: DEXT20CA7 PO (18:43)
[2021-01-08] MEDS ORDERED: MAGN27TA5 PO (18:43)
[2021-01-08] MEDS ORDERED: LORA2ORA2 PO (18:43)
[2021-01-08] MEDS ORDERED: ONDA4TAB7 PO (18:43)
[2021-01-08] MEDS ORDERED: SUCR1TAB PO (18:43)
[2021-01-08] MEDS ORDERED: ACET325T9 PO (18:43)
[2021-01-08] MEDS ORDERED: MAGN24003 PO (18:43)
[2021-01-08] MEDS ORDERED: NA P133E2 RC (18:43)
[2021-01-08] MEDS ORDERED: METH-561 PO (18:47)
[2021-01-08] MEDS ORDERED: BUTA-177 PO (18:47)
--- NOTE | 2021-01-08 18:57 | PDOC1 ---
History and Physical Date of Admission Date of Admission DATE: 01/08/21 TIME: 18:51 History of Present Illness History of Present Illness Ms Ham is a 50 year old female admit with severe intractable headache. She was given sq imitrex 2 times over the past 2 days, and she got frustrated when they tried to change her to PO. Pain was severe today, standard migrane pain, and was given r Imitrex, tramadol, Zofran, lorazepam and Fioricet. Headache pain 9/10 pain was not imrpoved then, a little better now after IV narcotics. Some transient noted left-sided facial droop, left-sided leg and arm weakness that now seems improvd. . Past Medical History Past Medical History Patient has a history of anxiety, bipolar, depression, diabetes, breast cancer and uterine cancer with surgeries, neuropathy, PTSD, herpes, hypertension, fibromyalgia, sciatica, She was seen at [facility] recently for palpitations and migraines. Cardiovascular: HTN Pulmonary: Other CENTRAL NERVOUS SYSTEM: Periperal neuropathy GI: GERD Heme/Onc: Cancer Hepatobiliary: Other Psych: Anxiety, Depression, Other Musculoskeletal: low back pain Rheumatologic: Fibromyalgia Infectious disease: No pertinent hx Renal/: No pertinent hx Endocrine: Diabetes Past Surgical History Past Surgical History gastric sleeve, Past Surgical History: Hysterectomy, Other Family History Family History: Cancer Social History Smoke: No ALCOHOL: occassional Drugs: None Current Problem List Problem List Problems Medical Problems: (1) Chest pain Status: Acute (2) Migraine Status: Acute Current Medications Current Medications Current Medications Prochlorperazine Edisylate (Compazine) 10 mg 1X ONCE IV Last administered on 01/08/21at 14:25; Start 01/08/21 at 13:00; Stop 01/08/21 at 13:01; Status DC Fentanyl Citrate (Fentanyl 2ml Vial) 50 mcg 1X ONCE IVP Last administered on 01/08/21at 14:25; Start 01/08/21 at 13:00; Stop 01/08/21 at 13:01; Status DC Morphine Sulfate (Morphine Sulfate) 4 mg PRN Q2HR PRN IV PAIN Last administered on 01/08/21at 18:00; Start 01/08/21 at 17:45 Active Scripts Active Reported Dswvie-Rywrezs-Zoozk 50-325-40 (Butalbital/Aspirin/Caffeine) 1 Each Tablet 1 Tab PO PRN Q4HRS PRN MDD 1 Tablet(s) 30 Days Methocarbamol 500 Mg Tablet 1,000 Mg PO TID Sucralfate 1 Gm Tablet 1 Tab PO TID PRN Tylenol (Acetaminophen) 325 Mg Tablet 650 Mg PO PRN Q4HRS PRN Lorazepam 2 Mg/1 Ml Oral.conc 2 Mg PO PRN Q12HR PRN Gabapentin 800 Mg Tablet 1,200 Mg PO TID Senna Plus Tablet (Sennosides/Docusate Sodium) 1 Each Tablet 2 Tab PO QHS 14 Days Diphenhydramine Hcl 25 Mg Tablet 1 Tab PO QHS 30 Days Melatonin 10 Mg Tablet.er 30 Mg PO QHS Losartan Potassium 100 Mg Tablet 100 Mg PO DAILY Adderall Xr 20 Mg Capsule (Dextroamphetamine/Amphetamine) 20 Mg Cap.er.24h 20 Mg PO DAILY Omeprazole 20 Mg Capsule.dr 20 Mg PO DAILY Metoprolol Succinate ( Xl ) (Metoprolol Succinate) 25 Mg Tab.er.24h 25 Mg PO DAILY Magnesium Gluconate 27 Mg Tablet 500 Mg PO DAILY 30 Days Tramadol Hcl 100 Mg Tbmp.24hr 100 Mg PO Q6H PRN Milk Of Magnesia (Magnesium Hydroxide) 2,400 Mg/10 Ml Oral.susp 1,200 Mg PO PRN DAILY PRN Metformin Hcl 1,000 Mg Tablet 1,000 Mg PO BIDWMEALS Fleet Enema (Na Phos,M-B/Na Phos,Di-Ba) 133 Ml Enema 1 Each RC PRN DAILY PRN Zofran (Ondansetron Hcl) 4 Mg Tablet 2 Tab PO PRN Q6-8HRS Dulcolax (Bisacodyl) 10 Mg Supp.rect 1 Supp RC BID 10 Days Amitriptyline Hcl 10 Mg Tablet 1 Tab PO QHS Miralax (Polyethylene Glycol 3350) 17 Gm Powd.pack 1 Pkt PO TID Imitrex (Sumatriptan Succinate) 50 Mg Tablet 50 Mg PO PRN Q6HRS PRN Gabapentin 600 Mg Tablet 1,200 Mg PO TID Allergies Allergies: Coded Allergies: NSAIDS (Non-Steroidal Anti-Inflamma (Verified Allergy, Intermediate, HIVES, 03/13/19) Sulfa (Sulfonamide Antibiotics) (Verified Allergy, Intermediate, Itching, 02/05/19) hydrocodone (Verified Allergy, Intermediate, Itching, 02/05/19) sulfamethoxazole (Verified Allergy, Intermediate, itching, 06/27/16) trimethoprim (Verified Allergy, Intermediate, itching, 06/27/16) I S O L A T I O N *CONTACT* (Verified Allergy, Unknown, 08/25/15) mrsa + ROS General: YES: Fatigue, Malaise, Appetite PSYCHOLOGICAL ROS: YES: Anxiety, Depression, Irritablity, Obsessive thoughts, Sleep disturbances Eyes: No Blurry vision, No Decreased vision, No Double vision, No Dry eyes, No Excessive tearing, No Eye Pain, No Itchy Eyes, No Loss of vision, No Photophobia , No Scotomata, No Uses contacts, No Uses glasses, No Other HEENT: YES: Heacaches, Nasal congestion, Sinus pain, Sneezing ALLERGY AND IMMUNOLOGY: No: Hives, Insect Bite Sensitivity, Itchy/Watery Eyes, Nasal Congestion, Post Nasal Drip, Seasonal Allergies, Other Hematological and Lymphatic: No: Bleeding Problems, Blood Clots, Blood Transfusions, Brusing, Night Sweats, Pallor, Swollen Lymph Nodes, Other Respiratory: No: Cough, Hemoptysis, Orthopnea, Pleuritic Pain, Shortness of breath, SOB with excertion, Sputum Changes, Stridor, Tachypnea, Wheezing, Other Cardiovascular: No Chest Pain, No Palpitations, No Orthopnea, No Paroxysmal Noc. Dyspnea, No Edema, No Lt Headedness, No Other Gastrointestinal: Yes Nausea, Yes Vomiting; No Abdominal Pain, No Diarrhea, No Constipation, No Melena, No Hematochezia, No Other Genitourinary: No Dysuria, No Frequency, No Incontinence, No Hematuria, No Retention, No Discharge, No Urgency, No Pain, No Flank Pain, No Other, No , No , No , No , No , No , No Musculoskeletal: Yes Gait Disturbance, Yes Joint Pain, Yes Joint Stiffness Neurological: Yes Headaches, Yes Numbness/Tingling, Yes Visual Changes, Yes Weakness; No Behavorial Changes, No Bowel/Bladder ControlChng, No Confusion, No Di zziness, No Gait Disturbance, No Impaired Coord/balance, No Memory Loss, No Seizures, No Speech Problems, No Tremors, No Other Skin: Yes Dry Skin; No Eczema, No Hair Changes, No Lumps, No Mole Changes, No Mottling, No Nail Changes, No Pruritus, No Rash, No Skin Lesion Changes, No Other, No Acne Physical Exam General: Alert, mild distress HEENT: Atraumatic, PERRLA Heart: S1S2 Abdomen: Soft Extremities: Normal pulses Skin: No breakdown, No significant lesion Neuro: Normal speech, Normal tone, Sensation intact Psych/Mental Status: Mental status NL, Mood NL Vitals Vitals Vital Signs Date Time Temp Pulse Resp B/P (MAP) Pulse Ox O2 Delivery O2 Flow Rate FiO2 01/08/21 18:00 18 Room Air 01/08/21 16:17 92 115/59 (77) 96 01/08/21 12:50 98.8 98.8 Labs Labs Laboratory Tests Test 01/08/21 13:44 01/08/21 15:30 White Blood Count 6.3 x10^3/uL (4.0-11.0) Red Blood Count 4.77 x10^6/uL (3.50-5.40) Hemoglobin 14.0 g/dL (12.0-15.5) Hematocrit 41.6 % (36.0-47.0) Mean Corpuscular Volume 87 fL (79-100) Mean Corpuscular Hemoglobin 29 pg (25-35) Mean Corpuscular Hemoglobin Concent 34 g/dL (31-37) Red Cell Distribution Width 14.0 % (11.5-14.5) Platelet Count 298 x10^3/uL (140-400) Neutrophils (%) (Auto) 56 % (31-73) Lymphocytes (%) (Auto) 30 % (24-48) Monocytes (%) (Auto) 11 % (0-9) Eosinophils (%) (Auto) 2 % (0-3) Basophils (%) (Auto) 1 % (0-3) Neutrophils # (Auto) 3.5 x10^3/uL (1.8-7.7) Lymphocytes # (Auto) 1.9 x10^3/uL (1.0-4.8) Monocytes # (Auto) 0.7 x10^3/uL (0.0-1.1) Eosinophils # (Auto) 0.1 x10^3/uL (0.0-0.7) Basophils # (Auto) 0.1 x10^3/uL (0.0-0.2) Prothrombin Time 11.8 SEC (11.7-14.0) Prothromb Time International Ratio 0.9 (0.8-1.1) Sodium Level 141 mmol/L (136-145) Potassium Level 4.3 mmol/L (3.5-5.1) Chloride Level 105 mmol/L (98-107) Carbon Dioxide Level 30 mmol/L (21-32) Anion Gap 6 (6-14) Blood Urea Nitrogen 11 mg/dL (7-20) Creatinine 1.0 mg/dL (0.6-1.0) Estimated GFR (Cockcroft-Gault) 70.7 BUN/Creatinine Ratio 11 (6-20) Glucose Level 122 mg/dL (70-99) Calcium Level 9.4 mg/dL (8.5-10.1) Magnesium Level 2.1 mg/dL (1.8-2.4) Total Bilirubin 0.2 mg/dL (0.2-1.0) Aspartate Amino Transf (AST/SGOT) 19 U/L (15-37) Alanine Aminotransferase (ALT/SGPT) 29 U/L (14-59) Alkaline Phosphatase 62 U/L (46-116) Troponin I Quantitative < 0.017 ng/mL (0.000-0.055) < 0.017 ng/mL (0.000-0.055) NG-Vsj-C-Type Natriuretic Peptide 34 pg/mL (0-124) Total Protein 7.8 g/dL (6.4-8.2) Albumin 4.1 g/dL (3.4-5.0) Albumin/Globulin Ratio 1.1 (1.0-1.7) Lipase 89 U/L (73-393) Laboratory Tests Test 01/08/21 13:44 01/08/21 15:30 White Blood Count 6.3 x10^3/uL (4.0-11.0) Red Blood Count 4.77 x10^6/uL (3.50-5.40) Hemoglobin 14.0 g/dL (12.0-15.5) Hematocrit 41.6 % (36.0-47.0) Mean Corpuscular Volume 87 fL (79-100) Mean Corpuscular Hemoglobin 29 pg (25-35) Mean Corpuscular Hemoglobin Concent 34 g/dL (31-37) Red Cell Distribution Width 14.0 % (11.5-14.5) Platelet Count 298 x10^3/uL (140-400) Neutrophils (%) (Auto) 56 % (31-73) Lymphocytes (%) (Auto) 30 % (24-48) Monocytes (%) (Auto) 11 % (0-9) Eosinophils (%) (Auto) 2 % (0-3) Basophils (%) (Auto) 1 % (0-3) Neutrophils # (Auto) 3.5 x10^3/uL (1.8-7.7) Lymphocytes # (Auto) 1.9 x10^3/uL (1.0-4.8) Monocytes # (Auto) 0.7 x10^3/uL (0.0-1.1) Eosinophils # (Auto) 0.1 x10^3/uL (0.0-0.7) Basophils # (Auto) 0.1 x10^3/uL (0.0-0.2) Prothrombin Time 11.8 SEC (11.7-14.0) Prothromb Time International Ratio 0.9 (0.8-1.1) Sodium Level 141 mmol/L (136-145) Potassium Level 4.3 mmol/L (3.5-5.1) Chloride Level 105 mmol/L (98-107) Carbon Dioxide Level 30 mmol/L (21-32) Anion Gap 6 (6-14) Blood Urea Nitrogen 11 mg/dL (7-20) Creatinine 1.0 mg/dL (0.6-1.0) Estimated GFR (Cockcroft-Gault) 70.7 BUN/Creatinine Ratio 11 (6-20) Glucose Level 122 mg/dL (70-99) Calcium Level 9.4 mg/dL (8.5-10.1) Magnesium Level 2.1 mg/dL (1.8-2.4) Total Bilirubin 0.2 mg/dL (0.2-1.0) Aspartate Amino Transf (AST/SGOT) 19 U/L (15-37) Alanine Aminotransferase (ALT/SGPT) 29 U/L (14-59) Alkaline Phosphatase 62 U/L (46-116) Troponin I Quantitative < 0.017 ng/mL (0.000-0.055) < 0.017 ng/mL (0.000-0.055) KL-Klq-O-Type Natriuretic Peptide 34 pg/mL (0-124) Total Protein 7.8 g/dL (6.4-8.2) Albumin 4.1 g/dL (3.4-5.0) Albumin/Globulin Ratio 1.1 (1.0-1.7) Lipase 89 U/L (73-393) VTE Prophylaxis Ordered VTE Prophylaxis Devices: Yes VTE Pharmacological Prophylaxi: Yes Assessment/Plan Assessment/Plan intractable migrange headache with nausea obese, BMI 43 disabled, lives in skilled nursing now due to headaches Justifications for Admission Other Justification ASHLEY ANGEL MD January 08, 2021 18:57
[2021-01-08] MEDS ORDERED: SUCRALFATE 1 GM TABLET. PO PRN (19:00)
[2021-01-08 19:55] VITALS: BP 112/76
[2021-01-08] MEDS: SENNOSIDES/DOCUSATE 8.6/50MG TABLET. PO SCH (20:58)
[2021-01-08] MEDS: POLYETHYLENE GLYCOL 3350 17 GM PACKET. PO SCH (20:59)
[2021-01-08] MEDS: METHOCARBAMOL 500 MG TABLET PO SCH (20:59)
[2021-01-08] MEDS: GABAPENTIN 400 MG CAPSULE. PO SCH (20:59)
[2021-01-08] MEDS: BISACODYL 10 MG SUPP.RECT. RC SCH (20:59)
[2021-01-08] MEDS: AMITRIPTYLINE HCL 10 MG TABLET. PO SCH (21:00)
[2021-01-08] MEDS ORDERED: diphenhydrAMINE HCL 25 MG CAPSULE PO SCH (21:00)
[2021-01-08] MEDS ORDERED: MELATONIN 30 MG PO SCH (21:00)
[2021-01-08] MEDS: LORazepam INTENSOL 2 MG/ML ORAL.CONC PO PRN (22:49)
[2021-01-08 23:00] VITALS: BP 112/72
[2021-01-09] VITALS (7 sets, daily range): BP systolic 87–129; BP diastolic 50–85
[2021-01-09] MEDS: diphenhydrAMINE 50 MG/ML VIAL IVP PRN ×3 (01:17→17:31)
[2021-01-09] MEDS: ONDANSETRON PF 4 MG/2 ML VIAL. IVP PRN (06:59)
[2021-01-09] MEDS: MORPHINE SULFATE 4 MG/ML VIAL. IV PRN ×2 (07:00→09:05)
[2021-01-09] MEDS: metFORMIN 500 MG TABLET PO SCH ×2 (08:11→16:50)
[2021-01-09] MEDS: GABAPENTIN 400 MG CAPSULE. PO SCH ×3 (08:11→21:59)
[2021-01-09] MEDS: POLYETHYLENE GLYCOL 3350 17 GM PACKET. PO SCH ×3 (08:11→21:58)
[2021-01-09] MEDS: IMIPRAMINE 25 MG TABLET PO PRN ×3 (08:11→22:25)
[2021-01-09] MEDS: METHOCARBAMOL 500 MG TABLET PO SCH ×3 (08:12→22:26)
[2021-01-09] MEDS: METOPROLOL SUCC 24HR ER 25 MG TAB.ER.24H. PO SCH (08:12)
[2021-01-09] MEDS: BUTALB/APAP/CAFEIN 50/325/40MG TABLET. PO PRN ×3 (08:12→16:50)
[2021-01-09] MEDS: MAGNESIUM OXIDE 400 MG TABLET PO SCH (08:12)
[2021-01-09] MEDS: PANTOPRAZOLE 40 MG TABLET.DR. PO SCH (08:12)
[2021-01-09] MEDS: BISACODYL 10 MG SUPP.RECT. RC SCH ×2 (08:13→22:25)
[2021-01-09] MEDS: LOSARTAN POTASSIUM 50 MG TABLET. PO SCH (08:13)
[2021-01-09] MEDS ORDERED: AMPHETAMINE PO SCH (09:00)
[2021-01-09] MEDS ORDERED: DEXTROAMPHETAMINE PO SCH (09:00)
[2021-01-09] MEDS: LORazepam INTENSOL 2 MG/ML ORAL.CONC PO PRN (12:31)
--- NOTE | 2021-01-09 13:12 | PDOC2 ---
CONSULT Date of Consult Date of Consult DATE: 01/09/21 TIME: 13:06 Reason for Consult Reason for Consult: Chest pain Referring Physician Referring Physician: Dr. Delgadillo Identification/Chief Complaint Chief Complaint Headache Source Source: Chart review, Patient History of Present Illness Reason for Visit: The patient is a 50-year-old female who is a resident of a [facility] who presented to the emergency room for progressively increasing headaches. The patient had a work-up for this including a CT head scan that showed no acute abnormalities. She also reported episodes of chest discomfort. Her EKG shows no acute ischemic changes. Her troponins have been has been normal x3. Her chest pain has resolved. On discussion today she states she was in [facility] 3 weeks ago for headaches. She was also seen by the cardiology service and had an echo with a reported ejection fraction at 48%. She was treated medically and is scheduled to be seen in follow-up. This morning as noted above she is feeling significantly better. She has no chest pain. Her headache has improved. She denies any history of heart failure, coronary disease or cardiac arrhythmias. Past Medical History Cardiovascular: HTN Pulmonary: Other CENTRAL NERVOUS SYSTEM: Periperal neuropathy GI: GERD Heme/Onc: Cancer Hepatobiliary: Other Psych: Anxiety, Bipolar, Depression, Other Musculoskeletal: low back pain Rheumatologic: Fibromyalgia Infectious disease: No pertinent hx Renal/: No pertinent hx Endocrine: Diabetes Past Surgical History Past Surgical History: Mastectomy, Tonsillectomy, Hysterectomy, Other (Gastric sleeve) Family History Family History: Cancer Social History No ALCOHOL: rare Drugs: None Lives: Alone Current Problem List Problem List Problems Medical Problems: (1) Chest pain Status: Acute (2) Migraine Status: Acute Current Medications Current Medications Current Medications Prochlorperazine Edisylate (Compazine) 10 mg 1X ONCE IV Last administered on 01/08/21at 14:25; Start 01/08/21 at 13:00; Stop 01/08/21 at 13:01; Status DC Fentanyl Citrate (Fentanyl 2ml Vial) 50 mcg 1X ONCE IVP Last administered on 01/08/21at 14:25; Start 01/08/21 at 13:00; Stop 01/08/21 at 13:01; Status DC Morphine Sulfate (Morphine Sulfate) 4 mg PRN Q2HR PRN IV PAIN Last administered on 01/09/21at 09:05; Start 01/08/21 at 17:45; Stop 01/09/21 at 10:01; Status DC Acetaminophen (Tylenol) 650 mg PRN Q4HRS PRN PO FEVER > 100.5'F; Start 01/08/21 at 19:00 Amitriptyline HCl (Elavil) 10 mg QHS PO Last administered on 01/08/21at 21:00; Start 01/08/21 at 21:00 Bisacodyl (Dulcolax Supp) 10 mg BID RC Last administered on 01/09/21at 08:13; Start 01/08/21 at 21:00 Lorazepam (Ativan Intensol) 2 mg PRN Q12HR PRN PO ANXIETY / AGITATION Last administered on 01/09/21at 12:31; Start 01/08/21 at 19:00 Methocarbamol (Robaxin) 1,000 mg TID PO Last administered on 01/09/21at 08:12; Start 01/08/21 at 21:00 Metoprolol Succinate (Toprol Xl) 25 mg DAILY PO Last administered on 01/09/21at 08:12; Start 01/09/21 at 09:00 Polyethylene Glycol (miraLAX PACKET) 17 gm TID PO Last administered on 01/09/21at 08:11; Start 01/08/21 at 21:00 Senna/Docusate Sodium (Senna Plus) 2 tab QHS PO Last administered on 01/08/21at 20:58; Start 01/08/21 at 21:00 Sucralfate (Carafate) 1 gm TID PRN PO ABDOMINAL PAIN; Start 01/08/21 at 19:00 Acetaminophen/ Butalbital/ Caffeine (Fioricet) 1 tab PRN Q4HRS PRN PO headache Last administered on 01/09/21at 12:31; Start 01/08/21 at 19:15 Non-Formulary Medication (Dextroamphetamine/ Amphetamine (Adderall Xr 20 Mg Capsule)) 20 mg DAILY PO ; Start 01/09/21 at 09:00; Status UNV Diphenhydramine HCl (Benadryl) 25 mg QHS PO Last administered on 01/08/21at 20:58; Start 01/08/21 at 21:00; Stop 01/09/21 at 01:12; Status DC Gabapentin (Neurontin) 1,200 mg TID PO Last administered on 01/09/21at 08:11; Start 01/08/21 at 21:00 Losartan Potassium (Cozaar) 100 mg DAILY PO Last administered on 01/09/21at 08:13; Start 01/09/21 at 09:00 Magnesium Oxide (Magnesium Oxide) 400 mg DAILY PO Last administered on 01/09/21at 08:12; Start 01/09/21 at 09:00 Non-Formulary Medication (Melatonin ) 30 mg QHS PO ; Start 01/08/21 at 21:00; Status UNV Metformin HCl (Glucophage) 1,000 mg BIDWMEALS PO Last administered on 01/09/21at 08:11; Start 01/09/21 at 08:00 Pantoprazole Sodium (Protonix) 40 mg DAILYAC PO Last administered on 01/09/21at 08:12; Start 01/09/21 at 07:30 Imipramine HCl (Tofranil) 50 mg PRN Q6HRS PRN PO MIGRAINE Last administered on 01/09/21at 08:11; Start 01/08/21 at 19:15 Diphenhydramine HCl (Benadryl) 50 mg PRN Q6HRS PRN IVP ITCHING Last administered on 01/09/21at 08:11; Start 01/09/21 at 01:00 Ondansetron HCl (Zofran) 4 mg PRN Q4HRS PRN IVP NAUSEA/VOMITING Last administered on 01/09/21at 06:59; Start 01/09/21 at 06:45 Active Scripts Active Reported Ojklxp-Xhypkke-Aoaac 50-325-40 (Butalbital/Aspirin/Caffeine) 1 Each Tablet 1 Tab PO PRN Q4HRS PRN MDD 1 Tablet(s) 30 Days Methocarbamol 500 Mg Tablet 1,000 Mg PO TID Sucralfate 1 Gm Tablet 1 Tab PO TID PRN Tylenol (Acetaminophen) 325 Mg Tablet 650 Mg PO PRN Q4HRS PRN Lorazepam 2 Mg/1 Ml Oral.conc 2 Mg PO PRN Q12HR PRN Gabapentin 800 Mg Tablet 1,200 Mg PO TID Senna Plus Tablet (Sennosides/Docusate Sodium) 1 Each Tablet 2 Tab PO QHS 14 Days Diphenhydramine Hcl 25 Mg Tablet 1 Tab PO QHS 30 Days Melatonin 10 Mg Tablet.er 30 Mg PO QHS Losartan Potassium 100 Mg Tablet 100 Mg PO DAILY Adderall Xr 20 Mg Capsule (Dextroamphetamine/Amphetamine) 20 Mg Cap.er.24h 20 Mg PO DAILY Omeprazole 20 Mg Capsule.dr 20 Mg PO DAILY Metoprolol Succinate ( Xl ) (Metoprolol Succinate) 25 Mg Tab.er.24h 25 Mg PO DAILY Magnesium Gluconate 27 Mg Tablet 500 Mg PO DAILY 30 Days Tramadol Hcl 100 Mg Tbmp.24hr 100 Mg PO Q6H PRN Milk Of Magnesia (Magnesium Hydroxide) 2,400 Mg/10 Ml Oral.susp 1,200 Mg PO PRN DAILY PRN Metformin Hcl 1,000 Mg Tablet 1,000 Mg PO BIDWMEALS Fleet Enema (Na Phos,M-B/Na Phos,Di-Ba) 133 Ml Enema 1 Each RC PRN DAILY PRN Zofran (Ondansetron Hcl) 4 Mg Tablet 2 Tab PO PRN Q6-8HRS Dulcolax (Bisacodyl) 10 Mg Supp.rect 1 Supp RC BID 10 Days Amitriptyline Hcl 10 Mg Tablet 1 Tab PO QHS Miralax (Polyethylene Glycol 3350) 17 Gm Powd.pack 1 Pkt PO TID Imitrex (Sumatriptan Succinate) 50 Mg Tablet 50 Mg PO PRN Q6HRS PRN Gabapentin 600 Mg Tablet 1,200 Mg PO TID Allergies Allergies: Coded Allergies: NSAIDS (Non-Steroidal Anti-Inflamma (Verified Allergy, Intermediate, HIVES, 03/13/19) Sulfa (Sulfonamide Antibiotics) (Verified Allergy, Intermediate, Itching, 02/05/19) hydrocodone (Verified Allergy, Intermediate, Itching, 02/05/19) sulfamethoxazole (Verified Allergy, Intermediate, itching, 06/27/16) trimethoprim (Verified Allergy, Intermediate, itching, 06/27/16) I S O L A T I O N *CONTACT* (Verified Allergy, Unknown, 08/25/15) mrsa + ROS General: YES: Fatigue Cardiovascular: yes Chest Pain Neurological: Yes Headaches Physical Exam General: No acute distress HEENT: Atraumatic Lungs: Clear to auscultation Heart: Regular rate Abdomen: Normal bowel sounds Vitals VITALS Vital Signs Date Time Temp Pulse Resp B/P (MAP) Pulse Ox O2 Delivery O2 Flow Rate FiO2 01/09/21 11:01 98.7 92 16 119/70 (86) 95 Room Air 98.7 Labs Labs Laboratory Tests Test 01/08/21 13:44 01/08/21 15:30 01/09/21 04:00 White Blood Count 6.3 x10^3/uL (4.0-11.0) Red Blood Count 4.77 x10^6/uL (3.50-5.40) Hemoglobin 14.0 g/dL (12.0-15.5) Hematocrit 41.6 % (36.0-47.0) Mean Corpuscular Volume 87 fL (79-100) Mean Corpuscular Hemoglobin 29 pg (25-35) Mean Corpuscular Hemoglobin Concent 34 g/dL (31-37) Red Cell Distribution Width 14.0 % (11.5-14.5) Platelet Count 298 x10^3/uL (140-400) Neutrophils (%) (Auto) 56 % (31-73) Lymphocytes (%) (Auto) 30 % (24-48) Monocytes (%) (Auto) 11 % (0-9) Eosinophils (%) (Auto) 2 % (0-3) Basophils (%) (Auto) 1 % (0-3) Neutrophils # (Auto) 3.5 x10^3/uL (1.8-7.7) Lymphocytes # (Auto) 1.9 x10^3/uL (1.0-4.8) Monocytes # (Auto) 0.7 x10^3/uL (0.0-1.1) Eosinophils # (Auto) 0.1 x10^3/uL (0.0-0.7) Basophils # (Auto) 0.1 x10^3/uL (0.0-0.2) Prothrombin Time 11.8 SEC (11.7-14.0) Prothromb Time International Ratio 0.9 (0.8-1.1) Sodium Level 141 mmol/L (136-145) Potassium Level 4.3 mmol/L (3.5-5.1) Chloride Level 105 mmol/L (98-107) Carbon Dioxide Level 30 mmol/L (21-32) Anion Gap 6 (6-14) Blood Urea Nitrogen 11 mg/dL (7-20) Creatinine 1.0 mg/dL (0.6-1.0) Estimated GFR (Cockcroft-Gault) 70.7 BUN/Creatinine Ratio 11 (6-20) Glucose Level 122 mg/dL (70-99) Calcium Level 9.4 mg/dL (8.5-10.1) Magnesium Level 2.1 mg/dL (1.8-2.4) Total Bilirubin 0.2 mg/dL (0.2-1.0) Aspartate Amino Transf (AST/SGOT) 19 U/L (15-37) Alanine Aminotransferase (ALT/SGPT) 29 U/L (14-59) Alkaline Phosphatase 62 U/L (46-116) Troponin I Quantitative < 0.017 ng/mL (0.000-0.055) < 0.017 ng/mL (0.000-0.055) < 0.017 ng/mL (0.000-0.055) MH-Rig-X-Type Natriuretic Peptide 34 pg/mL (0-124) Total Protein 7.8 g/dL (6.4-8.2) Albumin 4.1 g/dL (3.4-5.0) Albumin/Globulin Ratio 1.1 (1.0-1.7) Lipase 89 U/L (73-393) Laboratory Tests Test 01/08/21 13:44 01/08/21 15:30 01/09/21 04:00 White Blood Count 6.3 x10^3/uL (4.0-11.0) Red Blood Count 4.77 x10^6/uL (3.50-5.40) Hemoglobin 14.0 g/dL (12.0-15.5) Hematocrit 41.6 % (36.0-47.0) Mean Corpuscular Volume 87 fL (79-100) Mean Corpuscular Hemoglobin 29 pg (25-35) Mean Corpuscular Hemoglobin Concent 34 g/dL (31-37) Red Cell Distribution Width 14.0 % (11.5-14.5) Platelet Count 298 x10^3/uL (140-400) Neutrophils (%) (Auto) 56 % (31-73) Lymphocytes (%) (Auto) 30 % (24-48) Monocytes (%) (Auto) 11 % (0-9) Eosinophils (%) (Auto) 2 % (0-3) Basophils (%) (Auto) 1 % (0-3) Neutrophils # (Auto) 3.5 x10^3/uL (1.8-7.7) Lymphocytes # (Auto) 1.9 x10^3/uL (1.0-4.8) Monocytes # (Auto) 0.7 x10^3/uL (0.0-1.1) Eosinophils # (Auto) 0.1 x10^3/uL (0.0-0.7) Basophils # (Auto) 0.1 x10^3/uL (0.0-0.2) Prothrombin Time 11.8 SEC (11.7-14.0) Prothromb Time International Ratio 0.9 (0.8-1.1) Sodium Level 141 mmol/L (136-145) Potassium Level 4.3 mmol/L (3.5-5.1) Chloride Level 105 mmol/L (98-107) Carbon Dioxide Level 30 mmol/L (21-32) Anion Gap 6 (6-14) Blood Urea Nitrogen 11 mg/dL (7-20) Creatinine 1.0 mg/dL (0.6-1.0) Estimated GFR (Cockcroft-Gault) 70.7 BUN/Creatinine Ratio 11 (6-20) Glucose Level 122 mg/dL (70-99) Calcium Level 9.4 mg/dL (8.5-10.1) Magnesium Level 2.1 mg/dL (1.8-2.4) Total Bilirubin 0.2 mg/dL (0.2-1.0) Aspartate Amino Transf (AST/SGOT) 19 U/L (15-37) Alanine Aminotransferase (ALT/SGPT) 29 U/L (14-59) Alkaline Phosphatase 62 U/L (46-116) Troponin I Quantitative < 0.017 ng/mL (0.000-0.055) < 0.017 ng/mL (0.000-0.055) < 0.017 ng/mL (0.000-0.055) WH-Gli-P-Type Natriuretic Peptide 34 pg/mL (0-124) Total Protein 7.8 g/dL (6.4-8.2) Albumin 4.1 g/dL (3.4-5.0) Albumin/Globulin Ratio 1.1 (1.0-1.7) Lipase 89 U/L (73-393) Images Images CT head scan with no acute intracranial abnormalities. Chest x-ray with persistent elevation of the right hemidiaphragm. No acute infiltrates. Assessment/Plan Assessment/Plan 1. Headaches. This is been a chronic problem for the patient. She is improved today. Treatment as per the primary service. 2. Chest pain. Chest pain has resolved. Patient had no acute ischemic EKG changes. Troponin has been negative x3. The patient reports being followed by cardiology with an echocardiogram approximately 3 weeks ago with an ejection fraction of 48%. We will continue present medical treatment. 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 3. Diabetes mellitus. As per the primary service. 4. Hypertension. Controlled. We will continue on present treatment. FAUSTO ESCAMILLA MD January 09, 2021 13:12
[2021-01-09] MEDS ORDERED: MAGNESIUM HYDROXIDE 2,400 MG/30 ML ORAL.SUSP. PO PRN (14:00)
--- NOTE | 2021-01-09 14:02 | PDOC ---
[employer] PROGRESS NOTE Date of Service DOS: DATE: 01/09/21 TIME: 14:00 Chief Complaint Chief Complaint intractable migrane headache with nausea obese, BMI 43 disabled, recent back injury at her part-time job fibromyalgia, acute on chronic pain disorder nausea without vomiting Dm2, weakness and debilty, acquired chronic constipation, prob some OIC component, she reports doing well on TID miralax History of Present Illness History of Present Illness headache better, still weak, cannot walk well, similar to prior admit in 2019, she was in skilled, CV eval ok, consider other modalities likely DC soon DC tele today Vitals/I&O Vitals/I&O: Vital Signs Date Time Temp Pulse Resp B/P (MAP) Pulse Ox O2 Delivery O2 Flow Rate FiO2 01/09/21 11:01 98.7 92 16 119/70 (86) 95 Room Air 98.7 I & O 01/08/21 01/08/21 01/09/21 15:00 23:00 07:00 Intake Total 300 ml 410 ml Output Total 100 ml Balance 200 ml 410 ml Physical Exam General: Alert, Oriented X3, Cooperative, No acute distress Heart: Regular rate Lungs: Clear Abdomen: Normal bowel sounds Extremities: Normal pulses Skin: No breakdown, No significant lesion Labs Labs: Laboratory Tests Test 01/08/21 15:30 01/09/21 04:00 Troponin I Quantitative < 0.017 ng/mL (0.000-0.055) < 0.017 ng/mL (0.000-0.055) Assessment and Plan Assessmemt and Plan Problems Medical Problems: (1) Chest pain Status: Acute (2) Migraine Status: Acute Comment Review of Relevant I have reviewed the following items susy (where applicable) has been applied. Medications: Current Medications Medications (Trade) Dose Ordered Sig/[place] Route PRN Reason Start Time Stop Time Status Last Admin Dose Admin Morphine Sulfate (Morphine Sulfate) 4 mg PRN Q2HR PRN IV PAIN 01/08/21 17:45 01/09/21 10:01 DC 01/09/21 09:05 Amitriptyline HCl (Elavil) 10 mg QHS PO 01/08/21 21:00 01/08/21 21:00 Bisacodyl (Dulcolax Supp) 10 mg BID RC 01/08/21 21:00 01/09/21 08:13 Lorazepam (Ativan Intensol) 2 mg PRN Q12HR PRN PO ANXIETY / AGITATION 01/08/21 19:00 01/09/21 12:31 Methocarbamol (Robaxin) 1,000 mg TID PO 01/08/21 21:00 01/09/21 08:12 Metoprolol Succinate (Toprol Xl) 25 mg DAILY PO 01/09/21 09:00 01/09/21 08:12 Polyethylene Glycol (miraLAX PACKET) 17 gm TID PO 01/08/21 21:00 01/09/21 08:11 Senna/Docusate Sodium (Senna Plus) 2 tab QHS PO 01/08/21 21:00 01/08/21 20:58 Acetaminophen/ Butalbital/ Caffeine (Fioricet) 1 tab PRN Q4HRS PRN PO headache 01/08/21 19:15 01/09/21 12:31 Diphenhydramine HCl (Benadryl) 25 mg QHS PO 01/08/21 21:00 01/09/21 01:12 DC 01/08/21 20:58 Gabapentin (Neurontin) 1,200 mg TID PO 01/08/21 21:00 01/09/21 08:11 Losartan Potassium (Cozaar) 100 mg DAILY PO 01/09/21 09:00 01/09/21 08:13 Magnesium Oxide (Magnesium Oxide) 400 mg DAILY PO 01/09/21 09:00 01/09/21 08:12 Metformin HCl (Glucophage) 1,000 mg BIDWMEALS PO 01/09/21 08:00 01/09/21 08:11 Pantoprazole Sodium (Protonix) 40 mg DAILYAC PO 01/09/21 07:30 01/09/21 08:12 Imipramine HCl (Tofranil) 50 mg PRN Q6HRS PRN PO MIGRAINE 01/08/21 19:15 01/09/21 08:11 Diphenhydramine HCl (Benadryl) 50 mg PRN Q6HRS PRN IVP ITCHING 01/09/21 01:00 01/09/21 08:11 Ondansetron HCl (Zofran) 4 mg PRN Q4HRS PRN IVP NAUSEA/VOMITING 01/09/21 06:45 01/09/21 06:59 Justifications for Admission Other Justification ASHLEY ANGEL MD January 09, 2021 14:02
[2021-01-09] MEDS: oxyCODONE IR 5 MG TABLET PO PRN ×2 (14:34→22:25)
[2021-01-09] MEDS: AMITRIPTYLINE HCL 10 MG TABLET. PO SCH (21:58)
[2021-01-09] MEDS: SENNOSIDES/DOCUSATE 8.6/50MG TABLET. PO SCH (21:59)
--- NOTE | 2021-01-10 01:32 | CONS ---
DATE OF CONSULTATION: 01/09/2021 REFERRING PHYSICIAN: Dr. Angelic Delgadillo. REASON FOR CONSULTATION: Migraine headache. HISTORY OF PRESENT ILLNESS: The patient is a 50-year-old woman who presented to [facility] with chest pain and intractable headache. She does periodically get headaches, but they are not usually severe. She uses Imitrex, tramadol, Zofran, lorazepam and Fioricet to knock the headaches. On this occasion, however, the headache had been going on for 3 weeks. Some years ago she had a long headache, but it did not even last as long as 3 weeks. On a few occasions, she has had neurologic symptoms associated with the headache. On this occasion, she had bilateral leg weakness, left arm weakness and left facial numbness. The neurologic symptoms resolved as the headache improved. The chest pain has also resolved. Apparently, she has undergone investigation for coronary artery disease, which was negative. I do not have the results from [facility]. The headache is usually in the back of her neck and head and radiates forward. She can have associated sensitivities with the headache. PAST MEDICAL HISTORY: 1. Generalized anxiety. 2. Bipolar disorder. 3. Depression. 4. Diabetes. 5. History of breast and uterine cancer with surgeries. 6. Neuropathy. 7. Posttraumatic stress disorder. 8. Herpes. 9. Hypertension. 10. Fibromyalgia. 11. Sciatica. 12. She reports a work-related injury in 06/2020. 13. Gastroesophageal reflux disease. ALLERGIES: NONSTEROIDAL ANTI-INFLAMMATORY DRUGS, SULFA, HYDROCODONE, SULFAMETHOXAZOLE AND TRIMETHOPRIM. MEDICATIONS PRIOR TO ADMISSION: Tylenol 650 as needed, amitriptyline 10 mg nightly, which was just started a few days prior to admission, bisacodyl suppository twice per day for 10 days, Fiorinal as needed, Adderall-XR 20 mg, diphenhydramine 25 mg at night, gabapentin 1200 mg 3 times per day, lorazepam 2 mg every 12 hours as needed, losartan 100 mg, magnesium gluconate 500 mg, milk of magnesia as needed, melatonin 10 mg, metformin 1000 mg twice per day, methocarbamol 1000 mg 3 times per day, metoprolol 25 mg, Fleets enema as needed, omeprazole 20 mg, Zofran 4 mg to 8 mg every 6-8 hours as needed, MiraLax 3 times per day, senna ____ as needed, sucralfate three times a day as needed, sumatriptan 50 mg as needed, and tramadol 100 mg every 6 hours as needed. FAMILY HISTORY: Cancer. SOCIAL HISTORY: She does not smoke tobacco or use recreational drugs. She has occasional alcohol. REVIEW OF SYSTEMS: She has headache. She has no loss of vision or hearing. She does not have cognitive loss. She has been able to chew and swallow. She came in short of breath, but this has resolved. She came in with chest pain, which has also resolved. She does not have abdominal pain. She does have musculoskeletal pain from fibromyalgia. She does have constipation. No genitourinary complaint. She has back pain. Does not complain of excessive bruising, bleeding or swelling. Does have psychiatric illness with anxiety. She has difficulty with sleep. PHYSICAL EXAMINATION: VITAL SIGNS: The blood pressure was 101/64, pulse 87, respirations 19, temperature 98.8 orally Fahrenheit, oximetry was 98% on room air. Her weight was 128 kilograms, height 68 inches with a calculated body mass index of 42.9. GENERAL: She was alert, awake and cooperative. NEUROLOGIC: Speech was fluent and clear. She had a good fund of recent and remote knowledge. Attention and concentration was intact. She appeared well-groomed and well nourished. She was fully oriented. Examination of the cranial nerves revealed visual foster were full to confrontation. Extraocular movements were intact. The eyes were conjugate. Pursuit movements were smooth and saccadic eye movements were without dysmetria. There was no nystagmus. Pupils were 3 mm and reactive. Funduscopic exam did not reveal papilledema, exudate or hemorrhage. Facial sensation was intact. The muscles of mastication and facial expression were powerful symmetrically. Hearing was intact to finger rub. The palate arched symmetrically and the tongue was midline with full motion. Sternocleidomastoid and trapezius were powerful. Muscle bulk and tone was normal. There was no arm or leg drift. Power was full and symmetric. She had a tendency to give way on her legs, but power, overall was full. Reflexes were 2/4 and symmetric in the upper and lower extremities. Toes were not upgoing. Coordination testing with [id number]-[id number], heel to huffman, fine motor and rapid alternating movements was well performed. The sensory exam was intact to pain, light touch, proprioception, graphesthesia, cold thermal and vibration. There was no extinction to double simultaneous stimulation. Gait was not testable at this time. Auscultation of the carotid arteries did not reveal a bruit. HEART: Rhythm was regular, without a murmur. EXTREMITIES: Peripheral pulses were symmetric in the hands and feet. There was no edema or cyanosis. LABORATORY DATA: CBC was performed on 01/08/2021 revealing a normal white blood cell count, hemoglobin, hematocrit and platelet count. Chemistries were performed on 01/08/2021 revealing normal electrolytes, BUN and creatinine, but elevated glucose of 122. The GFR calculated at 70.7. The calcium, total protein and albumin were normal. Liver enzymes were not elevated. Lipase was not elevated. Troponin was measured on three occasions and not elevated. BNP was not elevated. PT/INR was 0.9. DIAGNOSTIC RESULTS: 1. CT scan of the brain was performed without contrast on 01/08/2021 and was normal. The visualized paranasal sinuses were clear. 2. Chest x-ray was performed on 01/08/2021 revealing a persistent elevation of the right hemidiaphragm. The cardiac silhouette was borderline enlarged without congestion. There was no focal consolidation, pleural effusion or pneumothorax. ASSESSMENT AND PLAN: The patient is a pleasant 50-year-old woman with a 3-week history of headache. I am relieved the neurologic exam was normal. She states she did have some neurologic symptoms associated which has happened to her before, which is reassuring that it is a migraine with aura and not a stroke. CT scan did not reveal evidence of acute or previous stroke. She has been recently started on amitriptyline, which I feel is a good choice for her with respect to headache and pain. She is on 10 mg, which can be titrated by 10 mg each week until she is on 50 mg. She does not appear to have coronary artery disease, just a diminished ejection fraction. She may use sumatriptan to abort her headache as needed. She cannot exceed 200 mg a day. This should not be used on a daily basis. She does have a great deal of tightness in her back. She might be helped by physical therapy to address that issue. I appreciate being involved in her care. RODRI DR: Nany TID: [id number]
[2021-01-10 02:51] VITALS: BP 119/85
[2021-01-10] MEDS: LORazepam INTENSOL 2 MG/ML ORAL.CONC PO PRN ×2 (02:51→15:03)
[2021-01-10] MEDS: oxyCODONE IR 5 MG TABLET PO PRN ×4 (02:51→21:15)
[2021-01-10 07:00] VITALS: BP 158/81
--- NOTE | 2021-01-10 08:55 | PDOC ---
PROGRESS NOTES Date of Service: DATE: 01/10/21 TIME: 08:54 Chief Complaint Chief Complaint impression intractable migrane headache with nausea, worse 01-10 obese, BMI 43 disabled, recent back injury at her part-time job fibromyalgia, acute on chronic pain disorder nausea without vomiting Dm2, weakness and debilty, acquired chronic constipation, prob some OIC component, plan she reports doing well on TID miralax neurology consult History of Present Illness History of Present Illness headache worse 01-10 , still weak, cannot walk well, similar to prior admit in 2019, she was in skilled, CV eval ok, consider other modalities neurology consult he may use sumatriptan to abort her headache as needed. cannot exceed 200 mg a day.should not be used on a daily basis. D/W RN Vitals Vitals Vital Signs Date Time Temp Pulse Resp B/P (MAP) Pulse Ox O2 Delivery O2 Flow Rate FiO2 01/10/21 07:00 98.6 85 16 158/81 (106) 97 Room Air 98.6 Physical Exam General: Alert, Oriented X3, Cooperative, No acute distress, mild distress, moderate distress Heart: Regular rate, Normal S1, Normal S2, No murmurs Lungs: Clear Abdomen: Normal bowel sounds, No tenderness, No hepatosplenomegaly Extremities: No cyanosis, Normal pulses Skin: No breakdown, No significant lesion Labs LABS Exam Date: 01/08/2021 1:[address] HEAD/BRAIN WO Indication: Reason: headache, weaknes / Spl. Instructions: / History: TECHNIQUE: Head CT was performed without intravenous contrast. One or more of the following dose reduction techniques were utilized: *Automated exposure control (AEC) *Adjustment of mA and/or kV according to patient size *Use of iterative reconstruction technique *CT scan done according to ALARA, or ALARA/IMAGE GENTLY COMPARISON: February 05, 2019 FINDINGS: The ventricles and sulci are normal for the patient's stated age. There is no evidence of acute intracranial hemorrhage, extra-axial collection, mass effect, midline shift, or acute territorial infarct. No lesion of the skull base or the calvarium is seen. The visualized paranasal sinuses, mastoid air cells and orbits are normal in appearance. IMPRESSION: No evidence for acute intracranial abnormality. Electronically signed by: Mar Andre MD (01/08/2021 1:37 PM) [id number] DICTATED and SIGNED BY: MAR ANDRE MD DATE: 01/08/21 [id number] Laboratory Tests Test 01/09/21 16:15 Glucose (Fingerstick) 137 mg/dL (70-99) Assessment and Plan Assessmemt and Plan Problems Medical Problems: (1) Chest pain Status: Acute (2) Migraine Status: Acute Comment Review of Relevant I have reviewed the following items susy (where applicable) has been applied. Labs Laboratory Tests Test 01/08/21 13:44 01/08/21 15:30 01/09/21 04:00 01/09/21 16:15 White Blood Count 6.3 x10^3/uL (4.0-11.0) Red Blood Count 4.77 x10^6/uL (3.50-5.40) Hemoglobin 14.0 g/dL (12.0-15.5) Hematocrit 41.6 % (36.0-47.0) Mean Corpuscular Volume 87 fL (79-100) Mean Corpuscular Hemoglobin 29 pg (25-35) Mean Corpuscular Hemoglobin Concent 34 g/dL (31-37) Red Cell Distribution Width 14.0 % (11.5-14.5) Platelet Count 298 x10^3/uL (140-400) Neutrophils (%) (Auto) 56 % (31-73) Lymphocytes (%) (Auto) 30 % (24-48) Monocytes (%) (Auto) 11 % (0-9) Eosinophils (%) (Auto) 2 % (0-3) Basophils (%) (Auto) 1 % (0-3) Neutrophils # (Auto) 3.5 x10^3/uL (1.8-7.7) Lymphocytes # (Auto) 1.9 x10^3/uL (1.0-4.8) Monocytes # (Auto) 0.7 x10^3/uL (0.0-1.1) Eosinophils # (Auto) 0.1 x10^3/uL (0.0-0.7) Basophils # (Auto) 0.1 x10^3/uL (0.0-0.2) Prothrombin Time 11.8 SEC (11.7-14.0) Prothromb Time International Ratio 0.9 (0.8-1.1) Sodium Level 141 mmol/L (136-145) Potassium Level 4.3 mmol/L (3.5-5.1) Chloride Level 105 mmol/L (98-107) Carbon Dioxide Level 30 mmol/L (21-32) Anion Gap 6 (6-14) Blood Urea Nitrogen 11 mg/dL (7-20) Creatinine 1.0 mg/dL (0.6-1.0) Estimated GFR (Cockcroft-Gault) 70.7 BUN/Creatinine Ratio 11 (6-20) Glucose Level 122 mg/dL (70-99) Calcium Level 9.4 mg/dL (8.5-10.1) Magnesium Level 2.1 mg/dL (1.8-2.4) Total Bilirubin 0.2 mg/dL (0.2-1.0) Aspartate Amino Transf (AST/SGOT) 19 U/L (15-37) Alanine Aminotransferase (ALT/SGPT) 29 U/L (14-59) Alkaline Phosphatase 62 U/L (46-116) Troponin I Quantitative < 0.017 ng/mL (0.000-0.055) < 0.017 ng/mL (0.000-0.055) < 0.017 ng/mL (0.000-0.055) [id number]-Ktn-[id number]-Type Natriuretic Peptide 34 pg/mL (0-124) Total Protein 7.8 g/dL (6.4-8.2) Albumin 4.1 g/dL (3.4-5.0) Albumin/Globulin Ratio 1.1 (1.0-1.7) Lipase 89 U/L (73-393) Glucose (Fingerstick) 137 mg/dL (70-99) Laboratory Tests Test 01/09/21 16:15 Glucose (Fingerstick) 137 mg/dL (70-99) Medications Current Medications Prochlorperazine Edisylate (Compazine) 10 mg 1X ONCE IV Last administered on 01/08/21at 14:25; Start 01/08/21 at 13:00; Stop 01/08/21 at 13:01; Status DC Fentanyl Citrate (Fentanyl 2ml Vial) 50 mcg 1X ONCE IVP Last administered on 01/08/21at 14:25; Start 01/08/21 at 13:00; Stop 01/08/21 at 13:01; Status DC Morphine Sulfate (Morphine Sulfate) 4 mg PRN Q2HR PRN IV PAIN Last administered on 01/09/21at 09:05; Start 01/08/21 at 17:45; Stop 01/09/21 at 10:01; Status DC Acetaminophen (Tylenol) 650 mg PRN Q4HRS PRN PO FEVER > 100.5'F; Start 01/08/21 at 19:00 Amitriptyline HCl (Elavil) 10 mg QHS PO Last administered on 01/09/21at 21:58; Start 01/08/21 at 21:00 Bisacodyl (Dulcolax Supp) 10 mg BID RC Last administered on 01/09/21at 22:25; Start 01/08/21 at 21:00 Lorazepam (Ativan Intensol) 2 mg PRN Q12HR PRN PO ANXIETY / AGITATION Last administered on 01/10/21at 02:51; Start 01/08/21 at 19:00 Methocarbamol (Robaxin) 1,000 mg TID PO Last administered on 01/09/21at 22:26; Start 01/08/21 at 21:00 Metoprolol Succinate (Toprol Xl) 25 mg DAILY PO Last administered on 01/09/21at 08:12; Start 01/09/21 at 09:00 Polyethylene Glycol (miraLAX PACKET) 17 gm TID PO Last administered on 01/09/21at 21:58; Start 01/08/21 at 21:00 Senna/Docusate Sodium (Senna Plus) 2 tab QHS PO Last administered on 01/09/21at 21:59; Start 01/08/21 at 21:00 Sucralfate (Carafate) 1 gm TID PRN PO ABDOMINAL PAIN; Start 01/08/21 at 19:00 Acetaminophen/ Butalbital/ Caffeine (Fioricet) 1 tab PRN Q4HRS PRN PO headache Last administered on 01/09/21at 16:50; Start 01/08/21 at 19:15 Non-Formulary Medication (Dextroamphetamine/ Amphetamine (Adderall Xr 20 Mg Capsule)) 20 mg DAILY PO ; Start 01/09/21 at 09:00; Stop 01/09/21 at 18:29; S seamusus DC Diphenhydramine HCl (Benadryl) 25 mg QHS PO Last administered on 01/08/21at 20:58; Start 01/08/21 at 21:00; Stop 01/09/21 at 01:12; Status DC Gabapentin (Neurontin) 1,200 mg TID PO Last administered on 01/09/21at 21:59; Start 01/08/21 at 21:00 Losartan Potassium (Cozaar) 100 mg DAILY PO Last administered on 01/09/21at 08:13; Start 01/09/21 at 09:00 Magnesium Oxide (Magnesium Oxide) 400 mg DAILY PO Last administered on 01/09/21at 08:12; Start 01/09/21 at 09:00 Non-Formulary Medication (Melatonin ) 30 mg QHS PO ; Start 01/08/21 at 21:00; Status UNV Metformin HCl (Glucophage) 1,000 mg BIDWMEALS PO Last administered on 01/09/21at 16:50; Start 01/09/21 at 08:00 Pantoprazole Sodium (Protonix) 40 mg DAILYAC PO Last administered on 01/09/21at 08:12; Start 01/09/21 at 07:30 Imipramine HCl (Tofranil) 50 mg PRN Q6HRS PRN PO MIGRAINE Last administered on 01/09/21at 22:25; Start 01/08/21 at 19:15 Diphenhydramine HCl (Benadryl) 50 mg PRN Q6HRS PRN IVP ITCHING Last administered on 01/09/21at 17:31; Start 01/09/21 at 01:00 Ondansetron HCl (Zofran) 4 mg PRN Q4HRS PRN IVP NAUSEA/VOMITING Last administered on 01/09/21at 06:59; Start 01/09/21 at 06:45 Magnesium Hydroxide (Milk Of Magnesia) 2,400 mg PRN DAILY PRN PO CONSTIPATION; Start 01/09/21 at 14:00 Oxycodone HCl (Roxicodone) 5 mg PRN Q6HRS PRN PO PAIN Last administered on 01/10/21at 02:51; Start 01/09/21 at 14:00 Active Scripts Active Reported [id number] 50-325-40 (Butalbital/Aspirin/Caffeine) 1 Each Tablet 1 Tab PO PRN Q4HRS PRN MDD 1 Tablet(s) 30 Days Methocarbamol 500 Mg Tablet 1,000 Mg PO TID Sucralfate 1 Gm Tablet 1 Tab PO TID PRN Tylenol (Acetaminophen) 325 Mg Tablet 650 Mg PO PRN Q4HRS PRN Lorazepam 2 Mg/1 Ml Oral.conc 2 Mg PO PRN Q12HR PRN Gabapentin 800 Mg Tablet 1,200 Mg PO TID Senna Plus Tablet (Sennosides/Docusate Sodium) 1 Each Tablet 2 Tab PO QHS 14 Days Diphenhydramine Hcl 25 Mg Tablet 1 Tab PO QHS 30 Days Melatonin 10 Mg Tablet.er 30 Mg PO QHS Losartan Potassium 100 Mg Tablet 100 Mg PO DAILY Adderall Xr 20 Mg Capsule (Dextroamphetamine/Amphetamine) 20 Mg Cap.er.24h 20 Mg PO DAILY Omeprazole 20 Mg Capsule.dr 20 Mg PO DAILY Metoprolol Succinate ( Xl ) (Metoprolol Succinate) 25 Mg Tab.er.24h 25 Mg PO DAILY Magnesium Gluconate 27 Mg Tablet 500 Mg PO DAILY 30 Days Tramadol Hcl 100 Mg Tbmp.24hr 100 Mg PO Q6H PRN Milk Of Magnesia (Magnesium Hydroxide) 2,400 Mg/10 Ml Oral.susp 1,200 Mg PO PRN DAILY PRN Metformin Hcl 1,000 Mg Tablet 1,000 Mg PO BIDWMEALS Fleet Enema (Na Phos,M-B/Na Phos,Di-Ba) 133 Ml Enema 1 Each RC PRN DAILY PRN Zofran (Ondansetron Hcl) 4 Mg Tablet 2 Tab PO PRN Q6-8HRS Dulcolax (Bisacodyl) 10 Mg Supp.rect 1 Supp RC BID 10 Days Amitriptyline Hcl 10 Mg Tablet 1 Tab PO QHS Miralax (Polyethylene Glycol 3350) 17 Gm Powd.pack 1 Pkt PO TID Imitrex (Sumatriptan Succinate) 50 Mg Tablet 50 Mg PO PRN Q6HRS PRN Gabapentin 600 Mg Tablet 1,200 Mg PO TID Vitals/I & O Vital Sign - Last 24 Hours 01/09/21 01/09/21 01/09/21 01/09/21 09:05 09:35 11:01 14:34 Temp 98.7 98.7 Pulse 92 Resp 18 16 B/P (MAP) 119/70 (86) Pulse Ox 97 97 95 95 O2 Delivery Room Air Room Air Room Air Room Air 01/09/21 01/09/21 01/09/21 01/09/21 15:00 15:13 19:09 19:40 Temp 98.6 98.8 98.6 98.8 Pulse 101 101 Resp 20 19 B/P (MAP) 87/50 (62) 91/51 (64) Pulse Ox 97 95 98 O2 Delivery Room Air Room Air Room Air Room Air 01/09/21 01/09/21 01/09/21 01/09/21 19:40 22:25 22:33 22:55 Temp 97.4 97.4 Pulse 87 111 Resp 20 20 20 B/P (MAP) 101/64 (76) 109/69 (82) Pulse Ox 97 O2 Delivery Room Air Room Air Room Air 01/10/21 01/10/21 01/10/21 01/10/21 02:51 02:51 03:21 07:00 Temp 98.5 98.6 98.5 98.6 Pulse 103 85 Resp 20 20 20 16 B/P (MAP) 119/85 (96) 158/81 (106) Pulse Ox 98 96 97 O2 Delivery Room Air Room Air Room Air Room Air Intake and Output 01/09/21 01/09/21 01/10/21 15:00 23:00 07:00 Intake Total 200 ml 240 ml Output Total 100 ml 500 ml Balance -100 ml 200 ml -260 ml Justicifation of Admission Dx: Justifications for Admission: Justification of Admission Dx: Yes Comments: INTRACTABLE PAIN COLIN TAYLOR MD January 10, 2021 08:54
[2021-01-10] MEDS: IMIPRAMINE 25 MG TABLET PO PRN ×2 (09:09→15:04)
[2021-01-10] MEDS: MAGNESIUM OXIDE 400 MG TABLET PO SCH (09:09)
[2021-01-10] MEDS: LOSARTAN POTASSIUM 50 MG TABLET. PO SCH (09:09)
[2021-01-10] MEDS: METOPROLOL SUCC 24HR ER 25 MG TAB.ER.24H. PO SCH (09:10)
[2021-01-10] MEDS: metFORMIN 500 MG TABLET PO SCH ×3 (09:10→17:00)
[2021-01-10] MEDS: PANTOPRAZOLE 40 MG TABLET.DR. PO SCH (09:10)
[2021-01-10] MEDS: BUTALB/APAP/CAFEIN 50/325/40MG TABLET. PO PRN ×2 (09:10→14:03)
[2021-01-10] MEDS: GABAPENTIN 400 MG CAPSULE. PO SCH ×3 (09:10→21:10)
[2021-01-10] MEDS: BISACODYL 10 MG SUPP.RECT. RC SCH ×2 (09:13→21:11)
[2021-01-10] MEDS: POLYETHYLENE GLYCOL 3350 17 GM PACKET. PO SCH ×3 (09:13→21:10)
[2021-01-10] MEDS: METHOCARBAMOL 500 MG TABLET PO SCH ×3 (09:47→21:10)
[2021-01-10] MEDS: FLUoxetine HCL 20 MG CAPSULE PO SCH (09:47)
[2021-01-10 11:00] VITALS: BP 124/71
--- NOTE | 2021-01-10 11:25 | NUR ---
SS following for discharge planning. SS reviewed pt chart and discussed with pt RN. Pt is from [facility] unit, ; fax [phone], and is currently on room air. [facility] reported that pt was supposed to discharge from there facility this week and they will not accept her back at this time. PT/OT ordered. SS will continue to follow for discharge planning.
--- NOTE | 2021-01-10 11:51 | PDOC ---
PROGRESS NOTES Date of Service DATE: 01/10/21 TIME: 11:47 Assessment Problems Medical Problems: (1) Chest pain Status: Acute (2) Migraine Status: Acute Intractable migraine, history of migraine-associated stroke symptoms. She has seen Dr. Garza, last in 2014. She is now seeing a neurologist at titrating amitriptyline upward. She is receiving sumatriptan and Lortab here. She would like the 10 mg size. History of fibromyalgia Diabetes, constipation Plan Continue her current regimen, I am not going to increase her narcotic dose Continue upwardly titrating amitriptyline under the care of her neurologist Inpatient hospitalization for migraine is rarely helpful, I have nothing to add to these above recommendations. Subjective When I came in the room she did not have a headache, apparently between the time I saw her in the time I am writing this note, her headache Objective Vital Signs Date Time Temp Pulse Resp B/P (MAP) Pulse Ox O2 Delivery O2 Flow Rate FiO2 01/10/21 11:16 97 Room Air 01/10/21 11:00 99.0 88 16 124/71 (88) 99.0 Intake and Output 01/10/21 07:00 Intake Total 440 ml Output Total 600 ml Balance -160 ml Intake Oral 440 ml Output Urine Total 600 ml # Voids 1 PHYSICAL EXAM Alert. Oriented to time, place and person. In no acute distress when I see her PERRL. EOMI. CN: no focal findings. Muscle tone: normal. Muscle strength: 5/5 DTR: 5/5 Plantar reflex: 2+ Gait: not examined in bed. Sensory exam: no abnormal findings. No cerebellar signs elicited. Review of Relevant I have reviewed the following items susy (where applicable) has been applied. Labs Laboratory Tests Test 01/08/21 13:44 01/08/21 15:30 01/09/21 04:00 01/09/21 16:15 White Blood Count 6.3 x10^3/uL (4.0-11.0) Red Blood Count 4.77 x10^6/uL (3.50-5.40) Hemoglobin 14.0 g/dL (12.0-15.5) Hematocrit 41.6 % (36.0-47.0) Mean Corpuscular Volume 87 fL (79-100) Mean Corpuscular Hemoglobin 29 pg (25-35) Mean Corpuscular Hemoglobin Concent 34 g/dL (31-37) Red Cell Distribution Width 14.0 % (11.5-14.5) Platelet Count 298 x10^3/uL (140-400) Neutrophils (%) (Auto) 56 % (31-73) Lymphocytes (%) (Auto) 30 % (24-48) Monocytes (%) (Auto) 11 % (0-9) Eosinophils (%) (Auto) 2 % (0-3) Basophils (%) (Auto) 1 % (0-3) Neutrophils # (Auto) 3.5 x10^3/uL (1.8-7.7) Lymphocytes # (Auto) 1.9 x10^3/uL (1.0-4.8) Monocytes # (Auto) 0.7 x10^3/uL (0.0-1.1) Eosinophils # (Auto) 0.1 x10^3/uL (0.0-0.7) Basophils # (Auto) 0.1 x10^3/uL (0.0-0.2) Prothrombin Time 11.8 SEC (11.7-14.0) Prothromb Time International Ratio 0.9 (0.8-1.1) Sodium Level 141 mmol/L (136-145) Potassium Level 4.3 mmol/L (3.5-5.1) Chloride Level 105 mmol/L (98-107) Carbon Dioxide Level 30 mmol/L (21-32) Anion Gap 6 (6-14) Blood Urea Nitrogen 11 mg/dL (7-20) Creatinine 1.0 mg/dL (0.6-1.0) Estimated GFR (Cockcroft-Gault) 70.7 BUN/Creatinine Ratio 11 (6-20) Glucose Level 122 mg/dL (70-99) Calcium Level 9.4 mg/dL (8.5-10.1) Magnesium Level 2.1 mg/dL (1.8-2.4) Total Bilirubin 0.2 mg/dL (0.2-1.0) Aspartate Amino Transf (AST/SGOT) 19 U/L (15-37) Alanine Aminotransferase (ALT/SGPT) 29 U/L (14-59) Alkaline Phosphatase 62 U/L (46-116) Troponin I Quantitative < 0.017 ng/mL (0.000-0.055) < 0.017 ng/mL (0.000-0.055) < 0.017 ng/mL (0.000-0.055) XM-[id number]-Type Natriuretic Peptide 34 pg/mL (0-124) Total Protein 7.8 g/dL (6.4-8.2) Albumin 4.1 g/dL (3.4-5.0) Albumin/Globulin Ratio 1.1 (1.0-1.7) Lipase 89 U/L (73-393) Glucose (Fingerstick) 137 mg/dL (70-99) Laboratory Tests Test 01/09/21 16:15 Glucose (Fingerstick) 137 mg/dL (70-99) Medications Current Medications Prochlorperazine Edisylate (Compazine) 10 mg 1X ONCE IV Last administered on 01/08/21 14:25; Start 01/08/21 at 13:00; Stop 01/08/21 at 13:01; Status DC Fentanyl Citrate (Fentanyl 2ml Vial) 50 mcg 1X ONCE IVP Last administered on 01/08/21 14:25; Start 01/08/21 at 13:00; Stop 01/08/21 at 13:01; Status DC Morphine Sulfate (Morphine Sulfate) 4 mg PRN Q2HR PRN IV PAIN Last administered on 01/09/21at 09:05; Start 01/08/21 at 17:45; Stop 01/09/21 at 10:01; Status DC Acetaminophen (Tylenol) 650 mg PRN Q4HRS PRN PO FEVER > 100.5'F; Start 01/08/21 at 19:00 Amitriptyline HCl (Elavil) 10 mg QHS PO Last administered on 01/09/21at 21:58; Start 01/08/21 at 21:00 Bisacodyl (Dulcolax Supp) 10 mg BID RC Last administered on 01/10/21 09:13; Start 01/08/21 at 21:00 Lorazepam (Ativan Intensol) 2 mg PRN Q12HR PRN PO ANXIETY / AGITATION Last admi nistered on 01/10/21 02:51; Start 01/08/21 at 19:00 Methocarbamol (Robaxin) 1,000 mg TID PO Last administered on 01/10/21 09:47; Start 01/08/21 at 21:00 Metoprolol Succinate (Toprol Xl) 25 mg DAILY PO Last administered on 01/10/21 09:10; Start 01/09/21 at 09:00 Polyethylene Glycol (miraLAX PACKET) 17 gm TID PO Last administered on 01/10/21 09:13; Start 01/08/21 at 21:00 Senna/Docusate Sodium (Senna Plus) 2 tab QHS PO Last administered on 01/09/21at 21:59; Start 01/08/21 at 21:00 Sucralfate (Carafate) 1 gm TID PRN PO ABDOMINAL PAIN; Start 01/08/21 at 19:00 Acetaminophen/ Butalbital/ Caffeine (Fioricet) 1 tab PRN Q4HRS PRN PO headache Last administered on 01/10/21 09:10; Start 01/08/21 at 19:15 Non-Formulary Medication (Dextroamphetamine/ Amphetamine (Adderall Xr 20 Mg Capsule)) 20 mg DAILY PO ; Start 01/09/21 at 09:00; Stop 01/09/21 at 18:29; Status DC Diphenhydramine HCl (Benadryl) 25 mg QHS PO Last administered on 01/08/21 20:58; Start 01/08/21 at 21:00; Stop 01/09/21 at 01:12; Status DC Gabapentin (Neurontin) 1,200 mg TID PO Last administered on 01/10/21 09:10; Start 01/08/21 at 21:00 Losartan Potassium (Cozaar) 100 mg DAILY PO Last administered on 01/10/21 09:09; Start 01/09/21 at 09:00 Magnesium Oxide (Magnesium Oxide) 400 mg DAILY PO Last administered on 01/10/21 09:09; Start 01/09/21 at 09:00 Non-Formulary Medication (Melatonin ) 30 mg QHS PO ; Start 01/08/21 at 21:00; Status UNV Metformin HCl (Glucophage) 1,000 mg BIDWMEALS PO Last administered on 01/10/21 09:10; Start 01/09/21 at 08:00 Pantoprazole Sodium (Protonix) 40 mg DAILYAC PO Last administered on 5/3/21at 09:10; Start 01/09/21 at 07:30 Imipramine HCl (Tofranil) 50 mg PRN Q6HRS PRN PO MIGRAINE Last administered on 01/10/21at 09:09; Start 01/08/21 at 19:15 Diphenhydramine HCl (Benadryl) 50 mg PRN Q6HRS PRN IVP ITCHING Last administered on 01/09/21at 17:31; Start 01/09/21 at 01:00 Ondansetron HCl (Zofran) 4 mg PRN Q4HRS PRN IVP NAUSEA/VOMITING Last administered on 01/09/21at 06:59; Start 01/09/21 at 06:45 Magnesium Hydroxide (Milk Of Magnesia) 2,400 mg PRN DAILY PRN PO CONSTIPATION; Start 01/09/21 at 14:00 Oxycodone HCl (Roxicodone) 5 mg PRN Q6HRS PRN PO PAIN Last administered on 01/10/21at 02:51; Start 01/09/21 at 14:00; Stop 01/10/21 at 09:28; Status DC Oxycodone HCl (Roxicodone) 10 mg PRN Q6HRS PRN PO PAIN Last administered on 01/10/21at 09:48; Start 01/10/21 at 09:30 Fluoxetine HCl (PROzac) 40 mg DAILY PO Last administered on 01/10/21at 09:47; Start 01/10/21 at 10:00 Active Scripts Active Reported [id number] 50-325-40 (Butalbital/Aspirin/Caffeine) 1 Each Tablet 1 Tab PO PRN Q4HRS PRN MDD 1 Tablet(s) 30 Days Methocarbamol 500 Mg Tablet 1,000 Mg PO TID Sucralfate 1 Gm Tablet 1 Tab PO TID PRN Tylenol (Acetaminophen) 325 Mg Tablet 650 Mg PO PRN Q4HRS PRN Lorazepam 2 Mg/1 Ml Oral.conc 2 Mg PO PRN Q12HR PRN Gabapentin 800 Mg Tablet 1,200 Mg PO TID Senna Plus Tablet (Sennosides/Docusate Sodium) 1 Each Tablet 2 Tab PO QHS 14 Days Diphenhydramine Hcl 25 Mg Tablet 1 Tab PO QHS 30 Days Melatonin 10 Mg Tablet.er 30 Mg PO QHS Losartan Potassium 100 Mg Tablet 100 Mg PO DAILY Adderall Xr 20 Mg Capsule (Dextroamphetamine/Amphetamine) 20 Mg Cap.er.24h 20 Mg PO DAILY Omeprazole 20 Mg Capsule.dr 20 Mg PO DAILY Metoprolol Succinate ( Xl ) (Metoprolol Succinate) 25 Mg Tab.er.24h 25 Mg PO DAILY Magnesium Gluconate 27 Mg Tablet 500 Mg PO DAILY 30 Days Tramadol Hcl 100 Mg Tbmp.24hr 100 Mg PO Q6H PRN Milk Of Magnesia (Magnesium Hydroxide) 2,400 Mg/10 Ml Oral.susp 1,200 Mg PO PRN DAILY PRN Metformin Hcl 1,000 Mg Tablet 1,000 Mg PO BIDWMEALS Fleet Enema (Na Phos,M-B/Na Phos,Di-Ba) 133 Ml Enema 1 Each RC PRN DAILY PRN Zofran (Ondansetron Hcl) 4 Mg Tablet 2 Tab PO PRN Q6-8HRS Dulcolax (Bisacodyl) 10 Mg Supp.rect 1 Supp RC BID 10 Days Amitriptyline Hcl 10 Mg Tablet 1 Tab PO QHS Miralax (Polyethylene Glycol 3350) 17 Gm Powd.pack 1 Pkt PO TID Imitrex (Sumatriptan Succinate) 50 Mg Tablet 50 Mg PO PRN Q6HRS PRN Gabapentin 600 Mg Tablet 1,200 Mg PO TID Vitals/I & O Vital Sign - Last 24 Hours 01/09/21 01/09/21 01/09/21 01/09/21 14:34 15:00 15:13 19:09 Temp 98.6 98.8 98.6 98.8 Pulse 101 101 Resp 20 19 B/P (MAP) 87/50 (62) 91/51 (64) Pulse Ox 95 97 95 98 O2 Delivery Room Air Room Air Room Air Room Air 01/09/21 01/09/21 01/09/21 01/09/21 19:40 19:40 22:25 22:33 Temp 97.4 97.4 Pulse 87 111 Resp 20 20 B/P (MAP) 101/64 (76) 109/69 (82) Pulse Ox 97 O2 Delivery Room Air Room Air Room Air 01/09/21 01/10/21 01/10/21 01/10/21 22:55 02:51 02:51 03:21 Temp 98.5 98.5 Pulse 103 Resp 20 20 20 20 B/P (MAP) 119/85 (96) Pulse Ox 98 96 O2 Delivery Room Air Room Air Room Air Room Air 01/10/21 01/10/21 01/10/21 01/10/21 07:00 09:09 09:10 09:48 Temp 98.6 98.6 Pulse 85 85 85 Resp 16 B/P (MAP) 158/81 (106) 158/81 158/81 Pulse Ox 97 97 O2 Delivery Room Air Room Air 01/10/21 01/10/21 11:00 11:16 Temp 99.0 99.0 Pulse 88 Resp 16 B/P (MAP) 124/71 (88) Pulse Ox 96 97 O2 Delivery Room Air Room Air Intake and Output 01/09/21 01/09/21 01/10/21 15:00 23:00 07:00 Intake Total 200 ml 240 ml Output Total 100 ml 500 ml Balance -100 ml 200 ml -260 ml Justicifation of Admission Dx: Justifications for Admission: Justification of Admission Dx: Yes TRACI GARAY MD January 10, 2021 11:51
[2021-01-10 12:34] LABS: CALCIUM 8.8 mg/dL (8.5-10.1); CREATININE 0.8 mg/dL (0.6-1.0); GFR 91.5; POTASSIUM 4.5 mmol/L (3.5-5.1)
[2021-01-10 12:37] LABS: BASO % 1 % (0-3); EOS # 0.1 x10^3/uL (0.0-0.7); EOS % 2 % (0-3); HEMATOCRIT 38.3 % (36.0-47.0); HEMOGLOBIN 12.5 g/dL (12.0-15.5); LYMPH # 1.6 x10^3/uL (1.0-4.8); LYMPH % 33 % (24-48); MEAN CORPUSCULAR HEMOGLOBIN 29 pg (25-35); MEAN CORPUSCULAR HGB CONC 33 g/dL (31-37); MEAN CORPUSCULAR VOLUME 89 fL (79-100); MONO # 0.6 x10^3/uL (0.0-1.1); MONO % 13 % (0-9); NEUT # 2.5 x10^3/uL (1.8-7.7); NEUT % 52 % (31-73); PLATELET COUNT 252 x10^3/uL (140-400); RED BLOOD COUNT 4.29 x10^6/uL (3.50-5.40); RED CELL DISTRIBUTION WIDTH 14.1 % (11.5-14.5); WHITE BLOOD COUNT 4.9 x10^3/uL (4.0-11.0)
[2021-01-10 15:00] VITALS: BP 117/75
[2021-01-10] MEDS ORDERED: fentaNYL PF VIAL 100 MCG/2 ML VIAL IVP ONE (16:45)
[2021-01-10] MEDS: ONDANSETRON PF 4 MG/2 ML VIAL. IVP PRN (17:09)
--- NOTE | 2021-01-10 17:35 | PDOC ---
PROGRESS NOTES Date of Service DATE: 01/10/21 TIME: 17:34 Subjective Subjective Patient seen and examined Objective Objective Vital Signs Date Time Temp Pulse Resp B/P (MAP) Pulse Ox O2 Delivery O2 Flow Rate FiO2 01/10/21 16:57 97 Room Air 01/10/21 15:00 98.1 97 16 117/75 (89) 98.1 Intake and Output 01/10/21 07:00 Intake Total 440 ml Output Total 600 ml Balance -160 ml Intake Oral 440 ml Output Urine Total 600 ml # Voids 1 Physical Exam Abdomen: Normal bowel sounds Heart: Regular rate General: mild distress Lungs: Clear to auscultation Assessment Assessment Problems Medical Problems: (1) Chest pain Status: Acute (2) Migraine Status: Acute 1. Headaches. This is been a chronic problem for the patient. She is improved today. Being evaluated by neurology. 2. Chest pain. Chest pain has resolved. Patient had no acute ischemic EKG changes. Troponin has been negative. The patient reports being followed by cardiology with an echocardiogram approximately 3 weeks ago with an ejection fraction of 48%. We will continue present medical treatment. 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 3. Diabetes mellitus. As per the primary service. 4. Hypertension. Controlled. We will continue on present treatment. Comment Review of Relevant I have reviewed the following items susy (where applicable) has been applied. Labs Laboratory Tests Test 01/09/21 04:00 01/09/21 16:15 01/10/21 11:50 01/10/21 12:01 Troponin I Quantitative < 0.017 ng/mL (0.000-0.055) Glucose (Fingerstick) 137 mg/dL (70-99) 135 mg/dL (70-99) White Blood Count 4.9 x10^3/uL (4.0-11.0) Red Blood Count 4.29 x10^6/uL (3.50-5.40) Hemoglobin 12.5 g/dL (12.0-15.5) Hematocrit 38.3 % (36.0-47.0) Mean Corpuscular Volume 89 fL (79-100) Mean Corpuscular Hemoglobin 29 pg (25-35) Mean Corpuscular Hemoglobin Concent 33 g/dL (31-37) Red Cell Distribution Width 14.1 % (11.5-14.5) Platelet Count 252 x10^3/uL (140-400) Neutrophils (%) (Auto) 52 % (31-73) Lymphocytes (%) (Auto) 33 % (24-48) Monocytes (%) (Auto) 13 % (0-9) Eosinophils (%) (Auto) 2 % (0-3) Basophils (%) (Auto) 1 % (0-3) Neutrophils # (Auto) 2.5 x10^3/uL (1.8-7.7) Lymphocytes # (Auto) 1.6 x10^3/uL (1.0-4.8) Monocytes # (Auto) 0.6 x10^3/uL (0.0-1.1) Eosinophils # (Auto) 0.1 x10^3/uL (0.0-0.7) Basophils # (Auto) 0.0 x10^3/uL (0.0-0.2) Erythrocyte Sedimentation Rate 11 (0-25) Sodium Level 144 mmol/L (136-145) Potassium Level 4.5 mmol/L (3.5-5.1) Chloride Level 105 mmol/L (98-107) Carbon Dioxide Level 29 mmol/L (21-32) Anion Gap 10 (6-14) Blood Urea Nitrogen 13 mg/dL (7-20) Creatinine 0.8 mg/dL (0.6-1.0) Estimated GFR (Cockcroft-Gault) 91.5 Glucose Level 128 mg/dL (70-99) Calcium Level 8.8 mg/dL (8.5-10.1) Laboratory Tests Test 01/10/21 11:50 01/10/21 12:01 White Blood Count 4.9 x10^3/uL (4.0-11.0) Red Blood Count 4.29 x10^6/uL (3.50-5.40) Hemoglobin 12.5 g/dL (12.0-15.5) Hematocrit 38.3 % (36.0-47.0) Mean Corpuscular Volume 89 fL (79-100) Mean Corpuscular Hemoglobin 29 pg (25-35) Mean Corpuscular Hemoglobin Concent 33 g/dL (31-37) Red Cell Distribution Width 14.1 % (11.5-14.5) Platelet Count 252 x10^3/uL (140-400) Neutrophils (%) (Auto) 52 % (31-73) Lymphocytes (%) (Auto) 33 % (24-48) Monocytes (%) (Auto) 13 % (0-9) Eosinophils (%) (Auto) 2 % (0-3) Basophils (%) (Auto) 1 % (0-3) Neutrophils # (Auto) 2.5 x10^3/uL (1.8-7.7) Lymphocytes # (Auto) 1.6 x10^3/uL (1.0-4.8) Monocytes # (Auto) 0.6 x10^3/uL (0.0-1.1) Eosinophils # (Auto) 0.1 x10^3/uL (0.0-0.7) Basophils # (Auto) 0.0 x10^3/uL (0.0-0.2) Erythrocyte Sedimentation Rate 11 (0-25) Sodium Level 144 mmol/L (136-145) Potassium Level 4.5 mmol/L (3.5-5.1) Chloride Level 105 mmol/L (98-107) Carbon Dioxide Level 29 mmol/L (21-32) Anion Gap 10 (6-14) Blood Urea Nitrogen 13 mg/dL (7-20) Creatinine 0.8 mg/dL (0.6-1.0) Estimated GFR (Cockcroft-Gault) 91.5 Glucose Level 128 mg/dL (70-99) Calcium Level 8.8 mg/dL (8.5-10.1) Glucose (Fingerstick) 135 mg/dL (70-99) Medications Current Medications Prochlorperazine Edisylate (Compazine) 10 mg 1X ONCE IV Last administered on 01/08/21at 14:25; Start 01/08/21 at 13:00; Stop 01/08/21 at 13:01; Status DC Fentanyl Citrate (Fentanyl 2ml Vial) 50 mcg 1X ONCE IVP Last administered on 01/08/21at 14:25; Start 01/08/21 at 13:00; Stop 01/08/21 at 13:01; Status DC Morphine Sulfate (Morphine Sulfate) 4 mg PRN Q2HR PRN IV PAIN Last administered on 01/09/21at 09:05; Start 01/08/21 at 17:45; Stop 01/09/21 at 10:01; Status DC Acetaminophen (Tylenol) 650 mg PRN Q4HRS PRN PO FEVER > 100.5'F; Start 01/08/21 at 19:00 Amitriptyline HCl (Elavil) 10 mg QHS PO Last administered on 01/09/21at 21:58; Start 01/08/21 at 21:00 Bisacodyl (Dulcolax Supp) 10 mg BID RC Last administered on 01/10/21at 09:13; Start 01/08/21 at 21:00 Lorazepam (Ativan Intensol) 2 mg PRN Q12HR PRN PO ANXIETY / AGITATION Last administered on 01/10/21at 15:03; Start 01/08/21 at 19:00 Methocarbamol (Robaxin) 1,000 mg TID PO Last administered on 01/10/21at 14:04; Start 01/08/21 at 21:00 Metoprolol Succinate (Toprol Xl) 25 mg DAILY PO Last administered on 01/10/21at 09:10; Start 01/09/21 at 09:00 Polyethylene Glycol (miraLAX PACKET) 17 gm TID PO Last administered on 01/10/21at 15:03; Start 01/08/21 at 21:00 Senna/Docusate Sodium (Senna Plus) 2 tab QHS PO Last administered on 01/09/21at 21:59; Start 01/08/21 at 21:00 Sucralfate (Carafate) 1 gm TID PRN PO ABDOMINAL PAIN; Start 01/08/21 at 19:00 Acetaminophen/ Butalbital/ Caffeine (Fioricet) 1 tab PRN Q4HRS PRN PO headache Last administered on 01/10/21at 14:03; Start 01/08/21 at 19:15 Non-Formulary Medication (Dextroamphetamine/ Amphetamine (Adderall Xr 20 Mg Capsule)) 20 mg DAILY PO ; Start 01/09/21 at 09:00; Stop 01/09/21 at 18:29; Status DC Diphenhydramine HCl (Benadryl) 25 mg QHS PO Last administered on 01/08/21at 20:58; Start 01/08/21 at 21:00; Stop 01/09/21 at 01:12; Status DC Gabapentin (Neurontin) 1,200 mg TID PO Last administered on 01/10/21 14:04; Start 01/08/21 at 21:00 Losartan Potassium (Cozaar) 100 mg DAILY PO Last administered on 01/10/21 09:09; Start 01/09/21 at 09:00 Magnesium Oxide (Magnesium Oxide) 400 mg DAILY PO Last administered on 01/10/21 09:09; Start 01/09/21 at 09:00 Non-Formulary Medication (Melatonin ) 30 mg QHS PO ; Start 01/08/21 at 21:00; Status UNV Metformin HCl (Glucophage) 1,000 mg BIDWMEALS PO Last administered on 01/10/21 09:10; Start 01/09/21 at 08:00 Pantoprazole Sodium (Protonix) 40 mg DAILYAC PO Last administered on 01/10/21 09:10; Start 01/09/21 at 07:30 Imipramine HCl (Tofranil) 50 mg PRN Q6HRS PRN PO MIGRAINE Last administered on 01/10/21 15:04; Start 01/08/21 at 19:15 Diphenhydramine HCl (Benadryl) 50 mg PRN Q6HRS PRN IVP ITCHING Last administered on 01/09/21 17:31; Start 01/09/21 at 01:00 Ondansetron HCl (Zofran) 4 mg PRN Q4HRS PRN IVP NAUSEA/VOMITING Last administered on 01/10/21 17:09; Start 01/09/21 at 06:45 Magnesium Hydroxide (Milk Of Magnesia) 2,400 mg PRN DAILY PRN PO CONSTIPATION; Start 01/09/21 at 14:00 Oxycodone HCl (Roxicodone) 5 mg PRN Q6HRS PRN PO PAIN Last administered on 01/10/21 02:51; Start 01/09/21 at 14:00; Stop 01/10/21 at 09:28; Status DC Oxycodone HCl (Roxicodone) 10 mg PRN Q6HRS PRN PO PAIN Last administered on 01/10/21 13:56; Start 01/10/21 at 09:30 Fluoxetine HCl (PROzac) 40 mg DAILY PO Last administered on 01/10/21 09:47; Start 5/3/21 at 10:00 Sumatriptan Succinate (Imitrex) 50 mg 1X ONCE PO Last administered on 01/10/21at 16:57; Start 01/10/21 at 16:00; Stop 01/10/21 at 16:06; Status DC Fentanyl Citrate (Fentanyl 2ml Vial) 50 mcg 1X ONCE IVP Last administered on 01/10/21at 16:57; Start 01/10/21 at 16:45; Stop 01/10/21 at 16:46; Status DC Active Scripts Active Reported [id number] 50-325-40 (Butalbital/Aspirin/Caffeine) 1 Each Tablet 1 Tab PO PRN Q4HRS PRN MDD 1 Tablet(s) 30 Days Methocarbamol 500 Mg Tablet 1,000 Mg PO TID Sucralfate 1 Gm Tablet 1 Tab PO TID PRN Tylenol (Acetaminophen) 325 Mg Tablet 650 Mg PO PRN Q4HRS PRN Lorazepam 2 Mg/1 Ml Oral.conc 2 Mg PO PRN Q12HR PRN Gabapentin 800 Mg Tablet 1,200 Mg PO TID Senna Plus Tablet (Sennosides/Docusate Sodium) 1 Each Tablet 2 Tab PO QHS 14 Days Diphenhydramine Hcl 25 Mg Tablet 1 Tab PO QHS 30 Days Melatonin 10 Mg Tablet.er 30 Mg PO QHS Losartan Potassium 100 Mg Tablet 100 Mg PO DAILY Adderall Xr 20 Mg Capsule (Dextroamphetamine/Amphetamine) 20 Mg Cap.er.24h 20 Mg PO DAILY Omeprazole 20 Mg Capsule.dr 20 Mg PO DAILY Metoprolol Succinate ( Xl ) (Metoprolol Succinate) 25 Mg Tab.er.24h 25 Mg PO DAILY Magnesium Gluconate 27 Mg Tablet 500 Mg PO DAILY 30 Days Tramadol Hcl 100 Mg Tbmp.24hr 100 Mg PO Q6H PRN Milk Of Magnesia (Magnesium Hydroxide) 2,400 Mg/10 Ml Oral.susp 1,200 Mg PO PRN DAILY PRN Metformin Hcl 1,000 Mg Tablet 1,000 Mg PO BIDWMEALS Fleet Enema (Na Phos,M-B/Na Phos,Di-Ba) 133 Ml Enema 1 Each RC PRN DAILY PRN Zofran (Ondansetron Hcl) 4 Mg Tablet 2 Tab PO PRN Q6-8HRS Dulcolax (Bisacodyl) 10 Mg Supp.rect 1 Supp RC BID 10 Days Amitriptyline Hcl 10 Mg Tablet 1 Tab PO QHS Miralax (Polyethylene Glycol 3350) 17 Gm Powd.pack 1 Pkt PO TID Imitrex (Sumatriptan Succinate) 50 Mg Tablet 50 Mg PO PRN Q6HRS PRN Gabapentin 600 Mg Tablet 1,200 Mg PO TID Vitals/I & O Vital Sign - Last 24 Hours 01/09/21 01/09/21 01/09/21 01/09/21 19:09 19:40 19:40 22:25 Temp 98.8 98.8 Pulse 101 87 Resp 19 20 B/P (MAP) 91/51 (64) 101/64 (76) Pulse Ox 98 O2 Delivery Room Air Room Air Room Air 01/09/21 01/09/21 01/10/21 01/10/21 22:33 22:55 02:51 02:51 Temp 97.4 98.5 97.4 98.5 Pulse 111 103 Resp 20 20 20 20 B/P (MAP) 109/69 (82) 119/85 (96) Pulse Ox 97 98 96 O2 Delivery Room Air Room Air Room Air Room Air 01/10/21 01/10/21 01/10/21 01/10/21 03:21 07:00 08:00 09:09 Temp 98.6 98.6 Pulse 85 85 Resp 20 16 B/P (MAP) 158/81 (106) 158/81 Pulse Ox 97 O2 Delivery Room Air Room Air Room Air 01/10/21 01/10/21 01/10/21 01/10/21 09:10 09:48 11:00 11:16 Temp 99.0 99.0 Pulse 85 88 Resp 16 B/P (MAP) 158/81 124/71 (88) Pulse Ox 97 96 97 O2 Delivery Room Air Room Air Room Air 01/10/21 01/10/21 01/10/21 01/10/21 13:56 15:00 15:24 16:57 Temp 98.1 98.1 Pulse 97 Resp 20 16 B/P (MAP) 117/75 (89) Pulse Ox 97 97 97 O2 Delivery Room Air Room Air Room Air Room Air Intake and Output 01/09/21 01/09/21 01/10/21 15:00 23:00 07:00 Intake Total 200 ml 240 ml Output Total 100 ml 500 ml Balance -100 ml 200 ml -260 ml Justifications for Admission Other Justification FAUSTO ESCAMILLA MD January 10, 2021 17:35
[2021-01-10 19:10] VITALS: BP 149/63
[2021-01-10] MEDS: AMITRIPTYLINE HCL 10 MG TABLET. PO SCH (21:10)
[2021-01-10] MEDS: SENNOSIDES/DOCUSATE 8.6/50MG TABLET. PO SCH (21:10)
[2021-01-10] MEDS: diphenhydrAMINE 50 MG/ML VIAL IVP PRN (22:31)
[2021-01-10 22:45] VITALS: BP 162/74
[2021-01-11] MEDS: hydrOXYzine 25 MG TABLET PO PRN ×3 (01:35→21:54)
[2021-01-11] MEDS: LORazepam INTENSOL 2 MG/ML ORAL.CONC PO PRN ×3 (03:41→22:01)
[2021-01-11 03:50] VITALS: BP 134/80
[2021-01-11 07:00] VITALS: BP 148/88
[2021-01-11] MEDS: MAGNESIUM OXIDE 400 MG TABLET PO SCH (08:20)
[2021-01-11] MEDS: PANTOPRAZOLE 40 MG TABLET.DR. PO SCH (08:20)
[2021-01-11] MEDS: METHOCARBAMOL 500 MG TABLET PO SCH ×3 (08:20→21:53)
[2021-01-11] MEDS: metFORMIN 500 MG TABLET PO SCH ×2 (08:20→17:27)
[2021-01-11] MEDS: POLYETHYLENE GLYCOL 3350 17 GM PACKET. PO SCH ×3 (08:21→21:55)
[2021-01-11] MEDS: FLUoxetine HCL 20 MG CAPSULE PO SCH (08:21)
[2021-01-11] MEDS: GABAPENTIN 400 MG CAPSULE. PO SCH ×3 (08:21→21:53)
[2021-01-11] MEDS: LOSARTAN POTASSIUM 50 MG TABLET. PO SCH (08:22)
[2021-01-11] MEDS: METOPROLOL SUCC 24HR ER 25 MG TAB.ER.24H. PO SCH (08:22)
[2021-01-11] MEDS: IMIPRAMINE 25 MG TABLET PO PRN ×2 (08:23→14:32)
[2021-01-11] MEDS: BUTALB/APAP/CAFEIN 50/325/40MG TABLET. PO PRN ×2 (08:23→12:42)
[2021-01-11] MEDS: BISACODYL 10 MG SUPP.RECT. RC SCH ×2 (08:23→21:55)
[2021-01-11] MEDS: oxyCODONE IR 5 MG TABLET PO PRN ×3 (08:24→21:54)
[2021-01-11] MEDS: ACETAMINOPHEN 325 MG TABLET. PO PRN ×2 (08:24→21:54)
--- NOTE | 2021-01-11 08:51 | PDOC ---
PROGRESS NOTES Date of Service: DATE: 01/11/21 TIME: 08:51 Chief Complaint Chief Complaint impression intractable migrane headache with nausea, worse 01-10, NOW IMPROVED obese, BMI 43 disabled, recent back injury at her part-time job fibromyalgia, acute on chronic pain disorder nausea without vomiting Dm2, weakness and debilty, acquired chronic constipation, prob some OIC component, She is now seeing a neurologist at titrating amitriptyline upward. She is receiving sumatriptan and Lortab here. plan doing well on TID miralax neurology consult reviewed D/C HOME TODAY D/W RN D/C PLANNING 35 MIN History of Present Illness History of Present Illness headache worse 01-10 , still weak, cannot walk well, similar to prior admit in 2019, she was in skilled, CV eval ok, consider other modalities neurology consult he may use sumatriptan to abort her headache as needed. cannot exceed 200 mg a day.should not be used on a daily basis. D/W RN Vitals Vitals Vital Signs Date Time Temp Pulse Resp B/P (MAP) Pulse Ox O2 Delivery O2 Flow Rate FiO2 01/11/21 08:24 98 Room Air 01/11/21 08:22 148/88 01/11/21 07:00 98.9 89 16 98.9 Physical Exam Physical Exam IN BED NAD Extremities: Normal pulses Skin: No breakdown, No significant lesion Neuro: Normal speech, Normal tone, Sensation intact Psych/Mental Status: Mental status NL, Mood NL General: Alert, Oriented X3, Cooperative, No acute distress Heart: Regular rate, Normal S1 Lungs: Clear Abdomen: Normal bowel sounds, Soft, No tenderness Extremities: No clubbing, No cyanosis, Normal pulses Skin: No breakdown, No significant lesion Labs LABS Laboratory Tests Test 01/10/21 11:50 01/10/21 12:01 01/10/21 17:12 White Blood Count 4.9 x10^3/uL (4.0-11.0) Red Blood Count 4.29 x10^6/uL (3.50-5.40) Hemoglobin 12.5 g/dL (12.0-15.5) Hematocrit 38.3 % (36.0-47.0) Mean Corpuscular Volume 89 fL (79-100) Mean Corpuscular Hemoglobin 29 pg (25-35) Mean Corpuscular Hemoglobin Concent 33 g/dL (31-37) Red Cell Distribution Width 14.1 % (11.5-14.5) Platelet Count 252 x10^3/uL (140-400) Neutrophils (%) (Auto) 52 % (31-73) Lymphocytes (%) (Auto) 33 % (24-48) Monocytes (%) (Auto) 13 % (0-9) Eosinophils (%) (Auto) 2 % (0-3) Basophils (%) (Auto) 1 % (0-3) Neutrophils # (Auto) 2.5 x10^3/uL (1.8-7.7) Lymphocytes # (Auto) 1.6 x10^3/uL (1.0-4.8) Monocytes # (Auto) 0.6 x10^3/uL (0.0-1.1) Eosinophils # (Auto) 0.1 x10^3/uL (0.0-0.7) Basophils # (Auto) 0.0 x10^3/uL (0.0-0.2) Erythrocyte Sedimentation Rate 11 (0-25) Sodium Level 144 mmol/L (136-145) Potassium Level 4.5 mmol/L (3.5-5.1) Chloride Level 105 mmol/L (98-107) Carbon Dioxide Level 29 mmol/L (21-32) Anion Gap 10 (6-14) Blood Urea Nitrogen 13 mg/dL (7-20) Creatinine 0.8 mg/dL (0.6-1.0) Estimated GFR (Cockcroft-Gault) 91.5 Glucose Level 128 mg/dL (70-99) Calcium Level 8.8 mg/dL (8.5-10.1) Glucose (Fingerstick) 135 mg/dL (70-99) 122 mg/dL (70-99) Assessment and Plan Assessmemt and Plan Problems Medical Problems: (1) Chest pain Status: Acute (2) Migraine Status: Acute Comment Review of Relevant I have reviewed the following items susy (where applicable) has been applied. Labs Laboratory Tests Test 01/09/21 16:15 01/10/21 11:50 01/10/21 12:01 01/10/21 17:12 Glucose (Fingerstick) 137 mg/dL (70-99) 135 mg/dL (70-99) 122 mg/dL (70-99) White Blood Count 4.9 x10^3/uL (4.0-11.0) Red Blood Count 4.29 x10^6/uL (3.50-5.40) Hemoglobin 12.5 g/dL (12.0-15.5) Hematocrit 38.3 % (36.0-47.0) Mean Corpuscular Volume 89 fL (79-100) Mean Corpuscular Hemoglobin 29 pg (25-35) Mean Corpuscular Hemoglobin Concent 33 g/dL (31-37) Red Cell Distribution Width 14.1 % (11.5-14.5) Platelet Count 252 x10^3/uL (140-400) Neutrophils (%) (Auto) 52 % (31-73) Lymphocytes (%) (Auto) 33 % (24-48) Monocytes (%) (Auto) 13 % (0-9) Eosinophils (%) (Auto) 2 % (0-3) Basophils (%) (Auto) 1 % (0-3) Neutrophils # (Auto) 2.5 x10^3/uL (1.8-7.7) Lymphocytes # (Auto) 1.6 x10^3/uL (1.0-4.8) Monocytes # (Auto) 0.6 x10^3/uL (0.0-1.1) Eosinophils # (Auto) 0.1 x10^3/uL (0.0-0.7) Basophils # (Auto) 0.0 x10^3/uL (0.0-0.2) Erythrocyte Sedimentation Rate 11 (0-25) Sodium Level 144 mmol/L (136-145) Potassium Level 4.5 mmol/L (3.5-5.1) Chloride Level 105 mmol/L (98-107) Carbon Dioxide Level 29 mmol/L (21-32) Anion Gap 10 (6-14) Blood Urea Nitrogen 13 mg/dL (7-20) Creatinine 0.8 mg/dL (0.6-1.0) Estimated GFR (Cockcroft-Gault) 91.5 Glucose Level 128 mg/dL (70-99) Calcium Level 8.8 mg/dL (8.5-10.1) Laboratory Tests Test 01/10/21 11:50 01/10/21 12:01 01/10/21 17:12 White Blood Count 4.9 x10^3/uL (4.0-11.0) Red Blood Count 4.29 x10^6/uL (3.50-5.40) Hemoglobin 12.5 g/dL (12.0-15.5) Hematocrit 38.3 % (36.0-47.0) Mean Corpuscular Volume 89 fL (79-100) Mean Corpuscular Hemoglobin 29 pg (25-35) Mean Corpuscular Hemoglobin Concent 33 g/dL (31-37) Red Cell Distribution Width 14.1 % (11.5-14.5) Platelet Count 252 x10^3/uL (140-400) Neutrophils (%) (Auto) 52 % (31-73) Lymphocytes (%) (Auto) 33 % (24-48) Monocytes (%) (Auto) 13 % (0-9) Eosinophils (%) (Auto) 2 % (0-3) Basophils (%) (Auto) 1 % (0-3) Neutrophils # (Auto) 2.5 x10^3/uL (1.8-7.7) Lymphocytes # (Auto) 1.6 x10^3/uL (1.0-4.8) Monocytes # (Auto) 0.6 x10^3/uL (0.0-1.1) Eosinophils # (Auto) 0.1 x10^3/uL (0.0-0.7) Basophils # (Auto) 0.0 x10^3/uL (0.0-0.2) Erythrocyte Sedimentation Rate 11 (0-25) Sodium Level 144 mmol/L (136-145) Potassium Level 4.5 mmol/L (3.5-5.1) Chloride Level 105 mmol/L (98-107) Carbon Dioxide Level 29 mmol/L (21-32) Anion Gap 10 (6-14) Blood Urea Nitrogen 13 mg/dL (7-20) Creatinine 0.8 mg/dL (0.6-1.0) Estimated GFR (Cockcroft-Gault) 91.5 Glucose Level 128 mg/dL (70-99) Calcium Level 8.8 mg/dL (8.5-10.1) Glucose (Fingerstick) 135 mg/dL (70-99) 122 mg/dL (70-99) Medications Current Medications Prochlorperazine Edisylate (Compazine) 10 mg 1X ONCE IV Last administered on 01/08/21 14:25; Start 01/08/21 at 13:00; Stop 01/08/21 at 13:01; Status DC Fentanyl Citrate (Fentanyl 2ml Vial) 50 mcg 1X ONCE IVP Last administered on 01/08/21at 14:25; Start 01/08/21 at 13:00; Stop 01/08/21 at 13:01; Status DC Morphine Sulfate (Morphine Sulfate) 4 mg PRN Q2HR PRN IV PAIN Last administered on 01/09/21at 09:05; Start 01/08/21 at 17:45; Stop 01/09/21 at 10:01; Status DC Acetaminophen (Tylenol) 650 mg PRN Q4HRS PRN PO FEVER > 100.5'F Last administered on 01/11/21at 08:24; Start 01/08/21 at 19:00 Amitriptyline HCl (Elavil) 10 mg QHS PO Last administered on 01/10/21 21:10; Start 01/08/21 at 21:00 Bisacodyl (Dulcolax Supp) 10 mg BID RC Last administered on 01/11/21 08:23; Start 01/08/21 at 21:00 Lorazepam (Ativan Intensol) 2 mg PRN Q12HR PRN PO ANXIETY / AGITATION Last administered on 01/11/21 03:41; Start 01/08/21 at 19:00 Methocarbamol (Robaxin) 1,000 mg TID PO Last administered on 01/11/21 08:20; Start 01/08/21 at 21:00 Metoprolol Succinate (Toprol Xl) 25 mg DAILY PO Last administered on 01/11/21 08:22; Start 01/09/21 at 09:00 Polyethylene Glycol (miraLAX PACKET) 17 gm TID PO Last administered on 01/11/21 08:21; Start 01/08/21 at 21:00 Senna/Docusate Sodium (Senna Plus) 2 tab QHS PO Last administered on 01/10/21 21:10; Start 01/08/21 at 21:00 Sucralfate (Carafate) 1 gm TID PRN PO ABDOMINAL PAIN; Start 01/08/21 at 19:00 Acetaminophen/ Butalbital/ Caffeine (Fioricet) 1 tab PRN Q4HRS PRN PO headache Last administered on 01/11/21at 08:23; Start 01/08/21 at 19:15 Non-Formulary Medication (Dextroamphetamine/ Amphetamine (Adderall Xr 20 Mg Capsule)) 20 mg DAILY PO ; Start 01/09/21 at 09:00; Stop 01/09/21 at 18:29; Status DC Diphenhydramine HCl (Benadryl) 25 mg QHS PO Last administered on 01/08/21at 20:58; Start 01/08/21 at 21:00; Stop 01/09/21 at 01:12; Status DC Gabapentin (Neurontin) 1,200 mg TID PO Last administered on 01/11/21 08:21; Start 01/08/21 at 21:00 Losartan Potassium (Cozaar) 100 mg DAILY PO Last administered on 01/11/21at 08:22; Start 01/09/21 at 09:00 Magnesium Oxide (Magnesium Oxide) 400 mg DAILY PO Last administered on 01/11/21 08:20; Start 01/09/21 at 09:00 Non-Formulary Medication (Melatonin ) 30 mg QHS PO ; Start 01/08/21 at 21:00; Status UNV Metformin HCl (Glucophage) 1,000 mg BIDWMEALS PO Last administered on 01/11/21 08:20; Start 01/09/21 at 08:00 Pantoprazole Sodium (Protonix) 40 mg DAILYAC PO Last administered on 01/11/21 08:20; Start 01/09/21 at 07:30 Imipramine HCl (Tofranil) 50 mg PRN Q6HRS PRN PO MIGRAINE Last administered on 01/11/21 08:23; Start 01/08/21 at 19:15 Diphenhydramine HCl (Benadryl) 50 mg PRN Q6HRS PRN IVP ITCHING Last ad ministered on 01/10/21at 22:31; Start 01/09/21 at 01:00 Ondansetron HCl (Zofran) 4 mg PRN Q4HRS PRN IVP NAUSEA/VOMITING Last admin istered on 01/10/21at 17:09; Start 01/09/21 at 06:45 Magnesium Hydroxide (Milk Of Magnesia) 2,400 mg PRN DAILY PRN PO CONSTIPATION Last administered on 01/11/21at 08:23; Start 01/09/21 at 14:00 Oxycodone HCl (Roxicodone) 5 mg PRN Q6HRS PRN PO PAIN Last administered on 01/10/21at 02:51; Start 01/09/21 at 14:00; Stop 01/10/21 at 09:28; Status DC Oxycodone HCl (Roxicodone) 10 mg PRN Q6HRS PRN PO PAIN Last administered on 01/11/21at 08:24; Start 01/10/21 at 09:30 Fluoxetine HCl (PROzac) 40 mg DAILY PO Last administered on 01/11/21at 08:21; Start 01/10/21 at 10:00 Sumatriptan Succinate (Imitrex) 50 mg 1X ONCE PO Last administered on 01/10/21at 16:57; Start 01/10/21 at 16:00; Stop 01/10/21 at 16:06; Status DC Fentanyl Citrate (Fentanyl 2ml Vial) 50 mcg 1X ONCE IVP Last administered on 01/10/21at 16:57; Start 01/10/21 at 16:45; Stop 01/10/21 at 16:46; Status DC Sumatriptan Succinate (Imitrex) 50 mg 1X ONCE PO Last administered on 01/10/21at 21:15; Start 01/10/21 at 19:00; Stop 01/10/21 at 19:01; Status DC Hydroxyzine HCl (Atarax) 25 mg PRN Q6HRS PRN PO ITCHING Last administered on 01/11/21at 01:35; Start 01/11/21 at 01:30 Active Scripts Active Reported [id number] 50-325-40 (Butalbital/Aspirin/Caffeine) 1 Each Tablet 1 Tab PO PRN Q4HRS PRN MDD 1 Tablet(s) 30 Days Methocarbamol 500 Mg Tablet 1,000 Mg PO TID Sucralfate 1 Gm Tablet 1 Tab PO TID PRN Tylenol (Acetaminophen) 325 Mg Tablet 650 Mg PO PRN Q4HRS PRN Lorazepam 2 Mg/1 Ml Oral.conc 2 Mg PO PRN Q12HR PRN Gabapentin 800 Mg Tablet 1,200 Mg PO TID Senna Plus Tablet (Sennosides/Docusate Sodium) 1 Each Tablet 2 Tab PO QHS 14 Days Diphenhydramine Hcl 25 Mg Tablet 1 Tab PO QHS 30 Days Melatonin 10 Mg Tablet.er 30 Mg PO QHS Losartan Potassium 100 Mg Tablet 100 Mg PO DAILY Adderall Xr 20 Mg Capsule (Dextroamphetamine/Amphetamine) 20 Mg Cap.er.24h 20 Mg PO DAILY Omeprazole 20 Mg Capsule.dr 20 Mg PO DAILY Metoprolol Succinate ( Xl ) (Metoprolol Succinate) 25 Mg Tab.er.24h 25 Mg PO DAILY Magnesium Gluconate 27 Mg Tablet 500 Mg PO DAILY 30 Days Tramadol Hcl 100 Mg Tbmp.24hr 100 Mg PO Q6H PRN Milk Of Magnesia (Magnesium Hydroxide) 2,400 Mg/10 Ml Oral.susp 1,200 Mg PO PRN DAILY PRN Metformin Hcl 1,000 Mg Tablet 1,000 Mg PO BIDWMEALS Fleet Enema (Na Phos,M-B/Na Phos,Di-Ba) 133 Ml Enema 1 Each RC PRN DAILY PRN Zofran (Ondansetron Hcl) 4 Mg Tablet 2 Tab PO PRN Q6-8HRS Dulcolax (Bisacodyl) 10 Mg Supp.rect 1 Supp RC BID 10 Days Amitriptyline Hcl 10 Mg Tablet 1 Tab PO QHS Miralax (Polyethylene Glycol 3350) 17 Gm Powd.pack 1 Pkt PO TID Imitrex (Sumatriptan Succinate) 50 Mg Tablet 50 Mg PO PRN Q6HRS PRN Gabapentin 600 Mg Tablet 1,200 Mg PO TID Vitals/I & O Vital Sign - Last 24 Hours 01/10/21 01/10/21 01/10/21 01/10/21 09:09 09:10 09:48 11:00 Temp 99.0 99.0 Pulse 85 85 88 Resp 16 B/P (MAP) 158/81 158/81 124/71 (88) Pulse Ox 97 96 O2 Delivery Room Air Room Air 01/10/21 01/10/21 01/10/21 01/10/21 11:16 13:56 15:00 15:24 Temp 98.1 98.1 Pulse 97 Resp 20 16 B/P (MAP) 117/75 (89) Pulse Ox 97 97 97 O2 Delivery Room Air Room Air Room Air Room Air 01/10/21 01/10/21 01/10/21 01/10/21 16:57 19:10 20:00 21:15 Temp 98.1 98.1 Pulse 92 Resp 20 B/P (MAP) 149/63 (91) Pulse Ox 97 95 O2 Delivery Room Air Room Air Room Air Room Air 01/10/21 01/10/21 01/11/21 01/11/21 21:45 22:45 03:50 07:00 Temp 97.9 97.7 98.9 97.9 97.7 98.9 Pulse 82 68 89 Resp 18 16 B/P (MAP) 162/74 (103) 134/80 (98) 148/88 (108) Pulse Ox 95 96 98 97 O2 Delivery Room Air Room Air Room Air 01/11/21 01/11/21 01/11/21 08:22 08:22 08:24 B/P (MAP) 148/88 148/88 Pulse Ox 98 O2 Delivery Room Air Intake and Output 01/10/21 01/10/21 01/11/21 15:00 23:00 07:00 Intake Total 300 ml Output Total 400 ml Balance -100 ml Justicifation of Admission Dx: Justifications for Admission: Justification of Admission Dx: Yes COLIN TAYLOR MD January 11, 2021 08:51
[2021-01-11] MEDS: diphenhydrAMINE 50 MG/ML VIAL IVP PRN ×3 (09:46→21:55)
--- NOTE | 2021-01-11 09:51 | PDOC ---
PROGRESS NOTES Date of Service DATE: 01/11/21 TIME: 09:49 Assessment Problems Medical Problems: (1) Chest pain Status: Acute (2) Migraine Status: Acute Intractable migraine, history of migraine-associated stroke symptoms. She has seen Dr. Garza, last in 2014. She is now seeing a neurologist at titrating amitriptyline upward. She is receiving sumatriptan and Lortab here. She would like the 10 mg size. History of fibromyalgia Diabetes, constipation Plan [facility] back to [facility] Continue her current regimen Continue upwardly titrating amitriptyline under the care of her neurologist. I'll increase the dose to 25 mg Inpatient hospitalization for migraine is rarely helpful, I have nothing to add to these above recommendations. Subjective Headache may be a little better Objective Vital Signs Date Time Temp Pulse Resp B/P (MAP) Pulse Ox O2 Delivery O2 Flow Rate FiO2 01/11/21 08:24 98 Room Air 01/11/21 08:22 148/88 01/11/21 07:00 98.9 89 16 98.9 Intake and Output 01/11/21 07:00 Intake Total 300 ml Output Total 400 ml Balance -100 ml Intake Oral 300 ml Output Urine Total 400 ml PHYSICAL EXAM Alert. Oriented to time, place and person. In no acute distress PERRL. EOMI. CN: no focal findings. Muscle tone: normal. Muscle strength: 5/5 DTR: 5/5 Plantar reflex: 2+ Gait: does well with walker. Sensory exam: no abnormal findings. No cerebellar signs elicited. Review of Relevant I have reviewed the following items susy (where applicable) has been applied. Labs Laboratory Tests Test 01/09/21 16:15 01/10/21 11:50 01/10/21 12:01 01/10/21 17:12 Glucose (Fingerstick) 137 mg/dL (70-99) 135 mg/dL (70-99) 122 mg/dL (70-99) White Blood Count 4.9 x10^3/uL (4.0-11.0) Red Blood Count 4.29 x10^6/uL (3.50-5.40) Hemoglobin 12.5 g/dL (12.0-15.5) Hematocrit 38.3 % (36.0-47.0) Mean Corpuscular Volume 89 fL (79-100) Mean Corpuscular Hemoglobin 29 pg (25-35) Mean Corpuscular Hemoglobin Concent 33 g/dL (31-37) Red Cell Distribution Width 14.1 % (11.5-14.5) Platelet Count 252 x10^3/uL (140-400) Neutrophils (%) (Auto) 52 % (31-73) Lymphocytes (%) (Auto) 33 % (24-48) Monocytes (%) (Auto) 13 % (0-9) Eosinophils (%) (Auto) 2 % (0-3) Basophils (%) (Auto) 1 % (0-3) Neutrophils # (Auto) 2.5 x10^3/uL (1.8-7.7) Lymphocytes # (Auto) 1.6 x10^3/uL (1.0-4.8) Monocytes # (Auto) 0.6 x10^3/uL (0.0-1.1) Eosinophils # (Auto) 0.1 x10^3/uL (0.0-0.7) Basophils # (Auto) 0.0 x10^3/uL (0.0-0.2) Erythrocyte Sedimentation Rate 11 (0-25) Sodium Level 144 mmol/L (136-145) Potassium Level 4.5 mmol/L (3.5-5.1) Chloride Level 105 mmol/L (98-107) Carbon Dioxide Level 29 mmol/L (21-32) Anion Gap 10 (6-14) Blood Urea Nitrogen 13 mg/dL (7-20) Creatinine 0.8 mg/dL (0.6-1.0) Estimated GFR (Cockcroft-Gault) 91.5 Glucose Level 128 mg/dL (70-99) Calcium Level 8.8 mg/dL (8.5-10.1) Laboratory Tests Test 01/10/21 11:50 01/10/21 12:01 01/10/21 17:12 White Blood Count 4.9 x10^3/uL (4.0-11.0) Red Blood Count 4.29 x10^6/uL (3.50-5.40) Hemoglobin 12.5 g/dL (12.0-15.5) Hematocrit 38.3 % (36.0-47.0) Mean Corpuscular Volume 89 fL (79-100) Mean Corpuscular Hemoglobin 29 pg (25-35) Mean Corpuscular Hemoglobin Concent 33 g/dL (31-37) Red Cell Distribution Width 14.1 % (11.5-14.5) Platelet Count 252 x10^3/uL (140-400) Neutrophils (%) (Auto) 52 % (31-73) Lymphocytes (%) (Auto) 33 % (24-48) Monocytes (%) (Auto) 13 % (0-9) Eosinophils (%) (Auto) 2 % (0-3) Basophils (%) (Auto) 1 % (0-3) Neutrophils # (Auto) 2.5 x10^3/uL (1.8-7.7) Lymphocytes # (Auto) 1.6 x10^3/uL (1.0-4.8) Monocytes # (Auto) 0.6 x10^3/uL (0.0-1.1) Eosinophils # (Auto) 0.1 x10^3/uL (0.0-0.7) Basophils # (Auto) 0.0 x10^3/uL (0.0-0.2) Erythrocyte Sedimentation Rate 11 (0-25) Sodium Level 144 mmol/L (136-145) Potassium Level 4.5 mmol/L (3.5-5.1) Chloride Level 105 mmol/L (98-107) Carbon Dioxide Level 29 mmol/L (21-32) Anion Gap 10 (6-14) Blood Urea Nitrogen 13 mg/dL (7-20) Creatinine 0.8 mg/dL (0.6-1.0) Estimated GFR (Cockcroft-Gault) 91.5 Glucose Level 128 mg/dL (70-99) Calcium Level 8.8 mg/dL (8.5-10.1) Glucose (Fingerstick) 135 mg/dL (70-99) 122 mg/dL (70-99) Medications Current Medications Prochlorperazine Edisylate (Compazine) 10 mg 1X ONCE IV Last administered on at 14:25; Start 01/08/21 at 13:00; Stop 01/08/21 at 13:01; Status DC Fentanyl Citrate (Fentanyl 2ml Vial) 50 mcg 1X ONCE IVP Last administered on 01/08/21at 14:25; Start 01/08/21 at 13:00; Stop 01/08/21 at 13:01; Status DC Morphine Sulfate (Morphine Sulfate) 4 mg PRN Q2HR PRN IV PAIN Last administered on 01/09/21 09:05; Start 01/08/21 at 17:45; Stop 01/09/21 at 10:01; Status DC Acetaminophen (Tylenol) 650 mg PRN Q4HRS PRN PO FEVER > 100.5'F Last administered on 01/11/21 08:24; Start 01/08/21 at 19:00 Amitriptyline HCl (Elavil) 10 mg QHS PO Last administered on 01/10/21 21:10; Start 01/08/21 at 21:00 Bisacodyl (Dulcolax Supp) 10 mg BID RC Last administered on 01/11/21 08:23; Start 01/08/21 at 21:00 Lorazepam (Ativan Intensol) 2 mg PRN Q12HR PRN PO ANXIETY / AGITATION Last administered on 01/11/21at 03:41; Start 01/08/21 at 19:00 Methocarbamol (Robaxin) 1,000 mg TID PO Last administered on 01/11/21 08:20; Start 01/08/21 at 21:00 Metoprolol Succinate (Toprol Xl) 25 mg DAILY PO Last administered on 01/11/21 08:22; Start 01/09/21 at 09:00 Polyethylene Glycol (miraLAX PACKET) 17 gm TID PO Last administered on 01/11/21 08:21; Start 01/08/21 at 21:00 Senna/Docusate Sodium (Senna Plus) 2 tab QHS PO Last administered on 01/10/21at 21:10; Start 01/08/21 at 21:00 Sucralfate (Carafate) 1 gm TID PRN PO ABDOMINAL PAIN; Start 01/08/21 at 19:00 Acetaminophen/ Butalbital/ Caffeine (Fioricet) 1 tab PRN Q4HRS PRN PO headache Last administered on 01/11/21 08:23; Start 01/08/21 at 19:15 Non-Formulary Medication (Dextroamphetamine/ Amphetamine (Adderall Xr 20 Mg Capsule)) 20 mg DAILY PO ; Start 01/09/21 at 09:00; Stop 01/09/21 at 18:29; Status DC Diphenhydramine HCl (Benadryl) 25 mg QHS PO Last administered on 01/08/21at 20:58; Start 01/08/21 at 21:00; Stop 01/09/21 at 01:12; Status DC Gabapentin (Neurontin) 1,200 mg TID PO Last administered on 01/11/21 08:21; Start 01/08/21 at 21:00 Losartan Potassium (Cozaar) 100 mg DAILY PO Last administered on 01/11/21 08:22; Start 01/09/21 at 09:00 Magnesium Oxide (Magnesium Oxide) 400 mg DAILY PO Last administered on 01/11/21 08:20; Start 01/09/21 at 09:00 Non-Formulary Medication (Melatonin ) 30 mg QHS PO ; Start 01/08/21 at 21:00; Status UNV Metformin HCl (Glucophage) 1,000 mg BIDWMEALS PO Last administered on 01/11/21 08:20; Start 01/09/21 at 08:00 Pantoprazole Sodium (Protonix) 40 mg DAILYAC PO Last administered on 01/11/21 08:20; Start 01/09/21 at 07:30 Imipramine HCl (Tofranil) 50 mg PRN Q6HRS PRN PO MIGRAINE Last administered on 01/11/21 08:23; Start 01/08/21 at 19:15 Diphenhydramine HCl (Benadryl) 50 mg PRN Q6HRS PRN IVP ITCHING Last administered on 01/11/21 09:46; Start 01/09/21 at 01:00 Ondansetron HCl (Zofran) 4 mg PRN Q4HRS PRN IVP NAUSEA/VOMITING Last administered on 01/10/21 17:09; Start 01/09/21 at 06:45 Magnesium Hydroxide (Milk Of Magnesia) 2,400 mg PRN DAILY PRN PO CONSTIPATION Last administered on 01/11/21 08:23; Start 01/09/21 at 14:00 Oxycodone HCl (Roxicodone) 5 mg PRN Q6HRS PRN PO PAIN Last administered on 01/10/21 02:51; Start 01/09/21 at 14:00; Stop 01/10/21 at 09:28; Status DC Oxycodone HCl (Roxicodone) 10 mg PRN Q6HRS PRN PO PAIN Last administered on 01/11/21at 08:24; Start 01/10/21 at 09:30 Fluoxetine HCl (PROzac) 40 mg DAILY PO Last administered on 01/11/21at 08:21; Start 01/10/21 at 10:00 Sumatriptan Succinate (Imitrex) 50 mg 1X ONCE PO Last administered on 01/10/21at 16:57; Start 01/10/21 at 16:00; Stop 01/10/21 at 16:06; Status DC Fentanyl Citrate (Fentanyl 2ml Vial) 50 mcg 1X ONCE IVP Last administered on 01/10/21at 16:57; Start 01/10/21 at 16:45; Stop 01/10/21 at 16:46; Status DC Sumatriptan Succinate (Imitrex) 50 mg 1X ONCE PO Last administered on 01/10/21at 21:15; Start 01/10/21 at 19:00; Stop 01/10/21 at 19:01; Status DC Hydroxyzine HCl (Atarax) 25 mg PRN Q6HRS PRN PO ITCHING Last administered on 01/11/21at 01:35; Start 01/11/21 at 01:30 Active Scripts Active Reported [id number] 50-325-40 (Butalbital/Aspirin/Caffeine) 1 Each Tablet 1 Tab PO PRN Q4HRS PRN MDD 1 Tablet(s) 30 Days Methocarbamol 500 Mg Tablet 1,000 Mg PO TID Sucralfate 1 Gm Tablet 1 Tab PO TID PRN Tylenol (Acetaminophen) 325 Mg Tablet 650 Mg PO PRN Q4HRS PRN Lorazepam 2 Mg/1 Ml Oral.conc 2 Mg PO PRN Q12HR PRN Gabapentin 800 Mg Tablet 1,200 Mg PO TID Senna Plus Tablet (Sennosides/Docusate Sodium) 1 Each Tablet 2 Tab PO QHS 14 Days Diphenhydramine Hcl 25 Mg Tablet 1 Tab PO QHS 30 Days Melatonin 10 Mg Tablet.er 30 Mg PO QHS Losartan Potassium 100 Mg Tablet 100 Mg PO DAILY Adderall Xr 20 Mg Capsule (Dextroamphetamine/Amphetamine) 20 Mg Cap.er.24h 20 Mg PO DAILY Omeprazole 20 Mg Capsule.dr 20 Mg PO DAILY Metoprolol Succinate ( Xl ) (Metoprolol Succinate) 25 Mg Tab.er.24h 25 Mg PO DAILY Magnesium Gluconate 27 Mg Tablet 500 Mg PO DAILY 30 Days Tramadol Hcl 100 Mg Tbmp.24hr 100 Mg PO Q6H PRN Milk Of Magnesia (Magnesium Hydroxide) 2,400 Mg/10 Ml Oral.susp 1,200 Mg PO PRN DAILY PRN Metformin Hcl 1,000 Mg Tablet 1,000 Mg PO BIDWMEALS Fleet Enema (Na Phos,M-B/Na Phos,Di-Ba) 133 Ml Enema 1 Each RC PRN DAILY PRN Zofran (Ondansetron Hcl) 4 Mg Tablet 2 Tab PO PRN Q6-8HRS Dulcolax (Bisacodyl) 10 Mg Supp.rect 1 Supp RC BID 10 Days Amitriptyline Hcl 10 Mg Tablet 1 Tab PO QHS Miralax (Polyethylene Glycol 3350) 17 Gm Powd.pack 1 Pkt PO TID Imitrex (Sumatriptan Succinate) 50 Mg Tablet 50 Mg PO PRN Q6HRS PRN Gabapentin 600 Mg Tablet 1,200 Mg PO TID Vitals/I & O Vital Sign - Last 24 Hours 01/10/21 01/10/21 01/10/21 01/10/21 11:00 11:16 13:56 15:00 Temp 99.0 98.1 99.0 98.1 Pulse 88 97 Resp 16 20 16 B/P (MAP) 124/71 (88) 117/75 (89) Pulse Ox 96 97 97 O2 Delivery Room Air Room Air Room Air Room Air 01/10/21 01/10/21 01/10/21 01/10/21 15:24 16:57 19:10 20:00 Temp 98.1 98.1 Pulse 92 Resp 20 B/P (MAP) 149/63 (91) Pulse Ox 97 97 95 O2 Delivery Room Air Room Air Room Air Room Air 01/10/21 01/10/21 01/10/21 01/11/21 21:15 21:45 22:45 03:50 Temp 97.9 97.7 97.9 97.7 Pulse 82 68 Resp 18 B/P (MAP) 162/74 (103) 134/80 (98) Pulse Ox 95 96 98 O2 Delivery Room Air Room Air Room Air 01/11/21 01/11/21 01/11/21 01/11/21 07:00 08:22 08:22 08:24 Temp 98.9 98.9 Pulse 89 Resp 16 B/P (MAP) 148/88 (108) 148/88 148/88 Pulse Ox 97 98 O2 Delivery Room Air Room Air Intake and Output 01/10/21 01/10/21 01/11/21 15:00 23:00 07:00 Intake Total 300 ml Output Total 400 ml Balance -100 ml Justicifation of Admission Dx: Justifications for Admission: Justification of Admission Dx: Yes TRACI GARAY MD January 11, 2021 09:51
--- NOTE | 2021-01-11 10:20 | PDOC3 ---
Discharge Summary Date of Admission: January 08, 2021 Date of Discharge: January 11, 2021 Follow-Up: 3-5 days Admitting Diagnosis comment: HPI=== History of Present Illness Ms Ham is a 50 year old female admitted with severe intractable headache. She was given sq imitrex 2 times over the past 2 days, and she got frustrated when they tried to change her to PO. Pain was severe standard migrane pain, and was given r Imitrex, tramadol, Zofran, lorazepam and Fioricet. Headache pain 9/10 pain was not imrpoved then, a little better now after IV narcotics. Some transient noted left-sided facial droop, left-sided leg and arm weakness that now seems improved. COMPLICATIONS NONE D/C CONDITION GOOD Consults neurology, CARDIOLOGY f/u [facility] neurology next week,,, cardiology soon as directed PROCEDURES CT HEAD PROGNOSIS GOOD NEEDS SLEEP STUDY SOON DISCHARGE DX intractable migrane headache with nausea, worse 5-, NOW IMPROVED obese, BMI 43 disabled, recent back injury at her part-time job fibromyalgia, acute on chronic pain disorder nausea without vomiting Dm2, weakness and debilty, acquired chronic constipation, prob some OIC component, She is now seeing a neurologist at titrating amitriptyline upward. She is receiving sumatriptan and Lortab here. She also reported episodes of chest discomfort. Her EKG shows no acute ischemic changes. Her troponins have been has been normal x3. Her chest pain has resolved plan doing well on TID miralax neurology consult reviewed D/C HOME TODAY D/W RN D/C PLANNING 35 MIN History of Present Illness History of Present Illness headache worse 01-10 , still weak, cannot walk well, similar to prior admit in 2019, she was in skilled, CV eval ok, consider other modalities neurology consult he may use sumatriptan to abort her headache as needed. cannot exceed 200 mg a day.should not be used on a daily basis. D/W RN Vitals Vitals Vital Signs Date Time Temp Pulse Resp B/P (MAP) Pulse Ox O2 Delivery O2 Flow Rate FiO2 01/11/21 08:24 98 Room Air 01/11/21 08:22 148/88 01/11/21 07:00 98.9 89 16 98.9 Physical Exam Physical Exam IN BED NAD Extremities: Normal pulses Skin: No breakdown, No significant lesion Neuro: Normal speech, Normal tone, Sensation intact Psych/Mental Status: Mental status NL, Mood NL General: Alert, Oriented X3, Cooperative, No acute distress Heart: Regular rate, Normal S1 Lungs: Clear Abdomen: Normal bowel sounds, Soft, No tenderness Extremities: No clubbing, No cyanosis, Normal pulses Skin: No breakdown, No significant lesion Exam Date: 01/08/2021 1:[address] HEAD/BRAIN WO Indication: Reason: headache, weaknes / Spl. Instructions: / History: TECHNIQUE: Head CT was performed without intravenous contrast. One or more of the following dose reduction techniques were utilized: *Automated exposure control (AEC) *Adjustment of mA and/or kV according to patient size *Use of iterative reconstruction technique *CT scan done according to ALARA, or ALARA/IMAGE GENTLY COMPARISON: February 05, 2019 FINDINGS: The ventricles and sulci are normal for the patient's stated age. There is no evidence of acute intracranial hemorrhage, extra-axial collection, mass effect, midline shift, or acute territorial infarct. No lesion of the skull base or the calvarium is seen. The visualized paranasal sinuses, mastoid air cells and orbits are normal in appearance. IMPRESSION: No evidence for acute intracranial abnormality. Electronically signed by: Mar Andre MD (01/08/2021 1:37 PM) [id number] DICTATED and SIGNED BY: MAR ANDRE MD DATE: 01/08/21 [id number] 0 FINAL DIAGNOSIS Problems Medical Problems: (1) Chest pain Status: Acute (2) Migraine Status: Acute Brief Hospital Course Ms. Ham is a 50 old [sex] who presented with [ ] CONDITION AT DISCHARGE: Improved Discharge Medications Current Medications Prochlorperazine Edisylate (Compazine) 10 mg 1X ONCE IV Last administered on 01/08/21at 14:25; Start 01/08/21 at 13:00; Stop 01/08/21 at 13:01; Status DC Fentanyl Citrate (Fentanyl 2ml Vial) 50 mcg 1X ONCE IVP Last administered on 01/08/21at 14:25; Start 01/08/21 at 13:00; Stop 01/08/21 at 13:01; Status DC Morphine Sulfate (Morphine Sulfate) 4 mg PRN Q2HR PRN IV PAIN Last administered on 01/09/21 09:05; Start 01/08/21 at 17:45; Stop 01/09/21 at 10:01; Status DC Acetaminophen (Tylenol) 650 mg PRN Q4HRS PRN PO FEVER > 100.5'F Last administered on 01/11/21at 08:24; Start 01/08/21 at 19:00 Amitriptyline HCl (Elavil) 10 mg QHS PO Last administered on 01/10/21at 21:10; Start 01/08/21 at 21:00; Stop 01/11/21 at 09:52; Status DC Bisacodyl (Dulcolax Supp) 10 mg BID RC Last administered on 01/11/21 08:23; Start 01/08/21 at 21:00 Lorazepam (Ativan Intensol) 2 mg PRN Q12HR PRN PO ANXIETY / AGITATION Last a dministered on 01/11/21at 03:41; Start 01/08/21 at 19:00 Methocarbamol (Robaxin) 1,000 mg TID PO Last administered on 01/11/21 08:20; Start 01/08/21 at 21:00 Metoprolol Succinate (Toprol Xl) 25 mg DAILY PO Last administered on 01/11/21 08:22; Start 01/09/21 at 09:00 Polyethylene Glycol (miraLAX PACKET) 17 gm TID PO Last administered on 01/11/21 08:21; Start 01/08/21 at 21:00 Senna/Docusate Sodium (Senna Plus) 2 tab QHS PO Last administered on 01/10/21at 21:10; Start 01/08/21 at 21:00 Sucralfate (Carafate) 1 gm TID PRN PO ABDOMINAL PAIN; Start 01/08/21 at 19:00 Acetaminophen/ Butalbital/ Caffeine (Fioricet) 1 tab PRN Q4HRS PRN PO headache Last administered on 01/11/21 08:23; Start 01/08/21 at 19:15 Non-Formulary Medication (Dextroamphetamine/ Amphetamine (Adderall Xr 20 Mg Capsule)) 20 mg DAILY PO ; Start 01/09/21 at 09:00; Stop 01/09/21 at 18:29; Status DC Diphenhydramine HCl (Benadryl) 25 mg QHS PO Last administered on 01/08/21at 20:58; Start 01/08/21 at 21:00; Stop 01/09/21 at 01:12; Status DC Gabapentin (Neurontin) 1,200 mg TID PO Last administered on 01/11/21 08:21; Start 01/08/21 at 21:00 Losartan Potassium (Cozaar) 100 mg DAILY PO Last administered on 01/11/21 08:22; Start 01/09/21 at 09:00 Magnesium Oxide (Magnesium Oxide) 400 mg DAILY PO Last administered on 01/11/21 08:20; Start 01/09/21 at 09:00 Non-Formulary Medication (Melatonin ) 30 mg QHS PO ; Start 01/08/21 at 21:00; Status UNV Metformin HCl (Glucophage) 1,000 mg BIDWMEALS PO Last administered on 01/11/21 08:20; Start 01/09/21 at 08:00 Pantoprazole Sodium (Protonix) 40 mg DAILYAC PO Last administered on 01/11/21 08:20; Start 01/09/21 at 07:30 Imipramine HCl (Tofranil) 50 mg PRN Q6HRS PRN PO MIGRAINE Last administered on 01/11/21 08:23; Start 01/08/21 at 19:15 Diphenhydramine HCl (Benadryl) 50 mg PRN Q6HRS PRN IVP ITCHING Last administered on 01/11/21 09:46; Start 01/09/21 at 01:00 Ondansetron HCl (Zofran) 4 mg PRN Q4HRS PRN IVP NAUSEA/VOMITING Last administered on 01/10/21 17:09; Start 01/09/21 at 06:45 Magnesium Hydroxide (Milk Of Magnesia) 2,400 mg PRN DAILY PRN PO CONSTIPATION Last administered on 01/11/21 08:23; Start 01/09/21 at 14:00 Oxycodone HCl (Roxicodone) 5 mg PRN Q6HRS PRN PO PAIN Last administered on 01/10/21 02:51; Start 01/09/21 at 14:00; Stop 01/10/21 at 09:28; Status DC Oxycodone HCl (Roxicodone) 10 mg PRN Q6HRS PRN PO PAIN Last administered on 01/11/21at 08:24; Start 01/10/21 at 09:30 Fluoxetine HCl (PROzac) 40 mg DAILY PO Last administered on 01/11/21at 08:21; Start 01/10/21 at 10:00 Sumatriptan Succinate (Imitrex) 50 mg 1X ONCE PO Last administered on 01/10/21at 16:57; Start 01/10/21 at 16:00; Stop 01/10/21 at 16:06; Status DC Fentanyl Citrate (Fentanyl 2ml Vial) 50 mcg 1X ONCE IVP Last administered on 01/10/21at 16:57; Start 01/10/21 at 16:45; Stop 01/10/21 at 16:46; Status DC Sumatriptan Succinate (Imitrex) 50 mg 1X ONCE PO Last administered on 01/10/21at 21:15; Start 01/10/21 at 19:00; Stop 01/10/21 at 19:01; Status DC Hydroxyzine HCl (Atarax) 25 mg PRN Q6HRS PRN PO ITCHING Last administered on 01/11/21at 01:35; Start 01/11/21 at 01:30 Amitriptyline HCl (Elavil) 25 mg QHS PO ; Start 01/11/21 at 21:00 Active Scripts Active Reported Odnwfd-Syerjjn-Cztiy 50-325-40 (Butalbital/Aspirin/Caffeine) 1 Each Tablet 1 Tab PO PRN Q4HRS PRN MDD 1 Tablet(s) 30 Days Methocarbamol 500 Mg Tablet 1,000 Mg PO TID Sucralfate 1 Gm Tablet 1 Tab PO TID PRN Tylenol (Acetaminophen) 325 Mg Tablet 650 Mg PO PRN Q4HRS PRN Lorazepam 2 Mg/1 Ml Oral.conc 2 Mg PO PRN Q12HR PRN Gabapentin 800 Mg Tablet 1,200 Mg PO TID Senna Plus Tablet (Sennosides/Docusate Sodium) 1 Each Tablet 2 Tab PO QHS 14 Days Diphenhydramine Hcl 25 Mg Tablet 1 Tab PO QHS 30 Days Melatonin 10 Mg Tablet.er 30 Mg PO QHS Losartan Potassium 100 Mg Tablet 100 Mg PO DAILY Adderall Xr 20 Mg Capsule (Dextroamphetamine/Amphetamine) 20 Mg Cap.er.24h 20 Mg PO DAILY Omeprazole 20 Mg Capsule.dr 20 Mg PO DAILY Metoprolol Succinate ( Xl ) (Metoprolol Succinate) 25 Mg Tab.er.24h 25 Mg PO DAILY Magnesium Gluconate 27 Mg Tablet 500 Mg PO DAILY 30 Days Tramadol Hcl 100 Mg Tbmp.24hr 100 Mg PO Q6H PRN Milk Of Magnesia (Magnesium Hydroxide) 2,400 Mg/10 Ml Oral.susp 1,200 Mg PO PRN DAILY PRN Metformin Hcl 1,000 Mg Tablet 1,000 Mg PO BIDWMEALS [place] Enema (Na Phos,M-B/Na Phos,Di-Ba) 133 Ml Enema 1 Each RC PRN DAILY PRN Zofran (Ondansetron Hcl) 4 Mg Tablet 2 Tab PO PRN Q6-8HRS Dulcolax (Bisacodyl) 10 Mg Supp.rect 1 Supp RC BID 10 Days Amitriptyline Hcl 10 Mg Tablet 1 Tab PO QHS Miralax (Polyethylene Glycol 3350) 17 Gm Powd.pack 1 Pkt PO TID Imitrex (Sumatriptan Succinate) 50 Mg Tablet 50 Mg PO PRN Q6HRS PRN Gabapentin 600 Mg Tablet 1,200 Mg PO TID Vital Signs Vital Signs Date Time Temp Pulse Resp B/P (MAP) Pulse Ox O2 Delivery O2 Flow Rate FiO2 01/11/21 08:24 98 Room Air 01/11/21 08:22 148/88 01/11/21 07:00 98.9 89 16 98.9 Labs Laboratory Tests Test 01/09/21 16:15 01/10/21 11:50 01/10/21 12:01 01/10/21 17:12 Glucose (Fingerstick) 137 mg/dL (70-99) 135 mg/dL (70-99) 122 mg/dL (70-99) White Blood Count 4.9 x10^3/uL (4.0-11.0) Red Blood Count 4.29 x10^6/uL (3.50-5.40) Hemoglobin 12.5 g/dL (12.0-15.5) Hematocrit 38.3 % (36.0-47.0) Mean Corpuscular Volume 89 fL (79-100) Mean Corpuscular Hemoglobin 29 pg (25-35) Mean Corpuscular Hemoglobin Concent 33 g/dL (31-37) Red Cell Distribution Width 14.1 % (11.5-14.5) Platelet Count 252 x10^3/uL (140-400) Neutrophils (%) (Auto) 52 % (31-73) Lymphocytes (%) (Auto) 33 % (24-48) Monocytes (%) (Auto) 13 % (0-9) Eosinophils (%) (Auto) 2 % (0-3) Basophils (%) (Auto) 1 % (0-3) Neutrophils # (Auto) 2.5 x10^3/uL (1.8-7.7) Lymphocytes # (Auto) 1.6 x10^3/uL (1.0-4.8) Monocytes # (Auto) 0.6 x10^3/uL (0.0-1.1) Eosinophils # (Auto) 0.1 x10^3/uL (0.0-0.7) Basophils # (Auto) 0.0 x10^3/uL (0.0-0.2) Erythrocyte Sedimentation Rate 11 (0-25) Sodium Level 144 mmol/L (136-145) Potassium Level 4.5 mmol/L (3.5-5.1) Chloride Level 105 mmol/L (98-107) Carbon Dioxide Level 29 mmol/L (21-32) Anion Gap 10 (6-14) Blood Urea Nitrogen 13 mg/dL (7-20) Creatinine 0.8 mg/dL (0.6-1.0) Estimated GFR (Cockcroft-Gault) 91.5 Glucose Level 128 mg/dL (70-99) Calcium Level 8.8 mg/dL (8.5-10.1) Laboratory Tests Test 01/10/21 11:50 01/10/21 12:01 01/10/21 17:12 White Blood Count 4.9 x10^3/uL (4.0-11.0) Red Blood Count 4.29 x10^6/uL (3.50-5.40) Hemoglobin 12.5 g/dL (12.0-15.5) Hematocrit 38.3 % (36.0-47.0) Mean Corpuscular Volume 89 fL (79-100) Mean Corpuscular Hemoglobin 29 pg (25-35) Mean Corpuscular Hemoglobin Concent 33 g/dL (31-37) Red Cell Distribution Width 14.1 % (11.5-14.5) Platelet Count 252 x10^3/uL (140-400) Neutrophils (%) (Auto) 52 % (31-73) Lymphocytes (%) (Auto) 33 % (24-48) Monocytes (%) (Auto) 13 % (0-9) Eosinophils (%) (Auto) 2 % (0-3) Basophils (%) (Auto) 1 % (0-3) Neutrophils # (Auto) 2.5 x10^3/uL (1.8-7.7) Lymphocytes # (Auto) 1.6 x10^3/uL (1.0-4.8) Monocytes # (Auto) 0.6 x10^3/uL (0.0-1.1) Eosinophils # (Auto) 0.1 x10^3/uL (0.0-0.7) Basophils # (Auto) 0.0 x10^3/uL (0.0-0.2) Erythrocyte Sedimentation Rate 11 (0-25) Sodium Level 144 mmol/L (136-145) Potassium Level 4.5 mmol/L (3.5-5.1) Chloride Level 105 mmol/L (98-107) Carbon Dioxide Level 29 mmol/L (21-32) Anion Gap 10 (6-14) Blood Urea Nitrogen 13 mg/dL (7-20) Creatinine 0.8 mg/dL (0.6-1.0) Estimated GFR (Cockcroft-Gault) 91.5 Glucose Level 128 mg/dL (70-99) Calcium Level 8.8 mg/dL (8.5-10.1) Glucose (Fingerstick) 135 mg/dL (70-99) 122 mg/dL (70-99) Allergies Allergies Coded Allergies Type Severity Reaction Last Updated Verified NSAIDS (Non-Steroidal Anti-Inflamma Allergy Intermediate HIVES 03/13/19 Yes Sulfa (Sulfonamide Antibiotics) Allergy Intermediate Itching 02/05/19 Yes hydrocodone Allergy Intermediate Itching 02/05/19 Yes sulfamethoxazole Allergy Intermediate itching 06/27/16 Yes trimethoprim Allergy Intermediate itching 06/27/16 Yes I S O L A T I O N *CONTACT* Allergy Unknown 08/25/15 Yes Disposition/Orders: D/C to Home Justicifation of Admission Dx: Justifications for Admission: Justification of Admission Dx: Yes COLIN TAYLOR MD January 11, 2021 10:20
[2021-01-11] MEDS ORDERED: FLUO20CA20 PO (10:26)
[2021-01-11] MEDS ORDERED: HYDR25TA PO (10:26)
[2021-01-11] MEDS ORDERED: AMIT25TA PO (10:26)
--- NOTE | 2021-01-11 10:27 | DISCH ---
DISCHARGE INSTRUCTIONS Condition on Discharge Condition on Discharge: Stable Activity After Discharge Activity Instructions for Disc: Activity as tolerated Lifting Instructions after Dis: No heavy lifting, No pulling or pushing Exercise Instruction after Dis: Progress as tolerated Driving Instructions after Dis: Do not drive today Weight Bearing Status after Di: As tolerated Diet after Discharge Diet after Discharge: Cardiac, Regular Diet Texture: Regular Liquid Texture: Thin Liquid Swallowing Supervision: None needed Checks after Discharge Checks after discharge: Check blood press - daily Contacting the DR. after DC Call your doctor for: If your condition worsens Follow-Up Follow up with: pcp this week, [facility] neurology gwen Follow Up With: CARDIOLOGY SOON DIRECTED Treatment/Equipment after DC Adaptive Equipment Issued: None COLIN TAYLOR MD January 11, 2021 10:27
[2021-01-11 11:00] VITALS: BP 118/76
--- NOTE | 2021-01-11 11:06 | SNU/HH DC ---
DISCHARGE WITH HOME HEALTH DISCHARGE INFORMATION: Discharge Date: January 11, 2021 Final Diagnosis: Problems Medical Problems: (1) Chest pain Status: Acute (2) Migraine Status: Acute Condition on Discharge: Stable CODE STATUS: Code Status: Full HOME HEALTH: Face to Face: I certify this patient is under my care and that I, or a nurse practitioner or physician's assistant men's lacrosse coach working with me, had a face to face encounter that meets the physician face to face encounter requirements with this patient on []. Medical Complications: Other (MIGRANES) [facility] For: Admin/Educate Injections, Assess Cardiopulm Status, Assess & Educate Safety, Assess/Skilled Observatio, Medication Management RN For Eval/Treatment: Yes Physical Therapy For: Evalulation/Treatment Occupational Therapy For: Evaluation/Treatment Speech Language Pathology For: Evaluation/Treatment Home Health Aide For: Self-care CONTRACTS ADMINISTRATOR For: Community Resources Pt Meets Homebound Status: Limited distance walking POST DISCHARGE ORDERS: Activity Instructions for Disc: Activity as tolerated Weight Bearing Status after Di: As tolerated DIET AFTER DISCHARGE: Regular CHECKS AFTER DISCHARGE: Checks after discharge: Check blood press - daily FOLLOW-UP: Follow up with: pcp this week, [facility] neurology gwen Follow Up With: CARDIOLOGY SOON DIRECTED TREATMENT/EQUIPMENT ORDERS: Adaptive Equipment Issued: None CERTIFICATION STATEMENT: Certification Statement: Certification Statement: Based on the above finding, I certify that this patient is confined to the home and needs intermittent prison care, physical therapy and/or speech therapy, or continues to need occupational therapy.~ This patient is under my care, and I have initiated the establishment of the plan of care.~ This patient will be followed by myself or a community physician who will periodically review the plan of care. Home Meds Active Scripts Hydroxyzine Hcl (HYDROXYZINE HCL) 25 Mg Tablet, 25 MG PO PRN Q6HRS PRN for ITCHING for 10 Days, #30 TAB Prov:COLIN TAYLOR MD 01/11/21 Fluoxetine Hcl (FLUOXETINE HCL) 20 Mg Capsule, 40 MG PO DAILY for mood for 30 Days, #60 CAP Prov:COLIN TAYLOR MD 01/11/21 Amitriptyline Hcl (AMITRIPTYLINE HCL) 25 Mg Tablet, 25 MG PO QHS for migrane for 30 Days, #30 TAB Prov:COLIN TAYLOR MD 01/11/21 Reported Medications Butalbital/Aspirin/Caffeine (Neivxx-Pcxsujs-Mmlht 50-325-40) 1 Each Tablet, 1 TAB PO PRN Q4HRS PRN for headache MDD 1 Tablet(s) for 30 Days, #30 TAB 0 Refills 01/08/21 Methocarbamol (METHOCARBAMOL) 500 Mg Tablet, 1000 MG PO TID for muscle relaxer, TAB 01/08/21 Sucralfate (SUCRALFATE) 1 Gm Tablet, 1 TAB PO TID PRN for ABDOMINAL PAIN, #90 TAB 11 Refills 01/08/21 Acetaminophen (TYLENOL) 325 Mg Tablet, 650 MG PO PRN Q4HRS PRN for FEVER > 100.5'F, TAB 01/08/21 Lorazepam (LORAZEPAM) 2 Mg/1 Ml Oral.conc, 2 MG PO PRN Q12HR PRN for ANXIETY / AGITATION, MISC 01/08/21 Sennosides/Docusate Sodium (SENNA PLUS TABLET) 1 Each Tablet, 2 TAB PO QHS for constipation for 14 Days, #28 TAB 0 Refills 01/08/21 Diphenhydramine Hcl (DIPHENHYDRAMINE HCL) 25 Mg Tablet, 1 TAB PO QHS for allergy symptoms for 30 Days, #30 TAB 0 Refills 01/08/21 Melatonin (MELATONIN) 10 Mg Tablet.er, 30 MG PO QHS for sleep, TAB.SR 01/08/21 Losartan Potassium (LOSARTAN POTASSIUM) 100 Mg Tablet, 100 MG PO DAILY for HYPERTENSION, TAB 01/08/21 Dextroamphetamine/Amphetamine (ADDERALL XR 20 MG CAPSULE) 20 Mg Cap.er.24h, 20 MG PO DAILY for adhd, TAB.SR 01/08/21 Omeprazole (OMEPRAZOLE) 20 Mg Capsule.dr, 20 MG PO DAILY for gerd, CAP 01/08/21 Metoprolol Succinate (METOPROLOL SUCCINATE ( XL )) 25 Mg Tab.er.24h, 25 MG PO DAILY for FOR HYPERTENSION, #30 TAB 0 Refills 01/08/21 Magnesium Gluconate (MAGNESIUM GLUCONATE) 27 Mg Tablet, 500 MG PO DAILY for vit for 30 Days, #556 TAB 01/08/21 Tramadol Hcl (TRAMADOL HCL) 100 Mg Tbmp.24hr, 100 MG PO Q6H PRN for PAIN, TAB 0 Refills 01/08/21 Magnesium Hydroxide (MILK OF MAGNESIA) 2,400 Mg/10 Ml Oral.susp, 1200 MG PO PRN DAILY PRN for CONSTIPATION, MISC 01/08/21 Metformin Hcl (METFORMIN HCL) 1,000 Mg Tablet, 1000 MG PO BIDWMEALS for dm, TAB 01/08/21 Ondansetron Hcl (ZOFRAN) 4 Mg Tablet, 2 TAB PO PRN Q6-8HRS for nausea, #5 TAB 01/08/21 Bisacodyl (DULCOLAX) 10 Mg Supp.rect, 1 SUPP RC BID for constipation for 10 Days, #20 SUPP 0 Refills 01/08/21 Polyethylene Glycol 3350 (MIRALAX) 17 Gm Powd.pack, 1 PKT PO TID for gi, PKT 01/08/21 Sumatriptan Succinate (IMITREX) 50 Mg Tablet, 50 MG PO PRN Q6HRS PRN for MIGRAINE HEADACHE, TAB 01/08/21 Gabapentin (GABAPENTIN) 600 Mg Tablet, 1200 MG PO TID, CAP 06/11/15 Discontinued Reported Medications Gabapentin (GABAPENTIN) 800 Mg Tablet, 1200 MG PO TID for NEUROGENIC PAIN, TAB 01/08/21 Na Phos,M-B/Na Phos,Di-Ba (FLEET ENEMA) 133 Ml Enema, 1 EACH RC PRN DAILY PRN for CONSTIPATION, #1 BOTTLE 01/08/21 Amitriptyline Hcl (AMITRIPTYLINE HCL) 10 Mg Tablet, 1 TAB PO QHS for migraines, #30 TAB 01/08/21 Melatonin (MELATONIN) 3 Mg Tablet, 20 MG PO HS for insomnia, TAB 03/13/19 Diclofenac Sodium (DICLOFENAC SODIUM) 75 Mg Tablet.dr, #60 06/27/16 Lidocaine (LIDOCAINE) 700 Mg Adh..patch, #10 06/27/16 Metformin Hcl (METFORMIN HCL ER) 500 Mg Tab.er.24h, #120 06/27/16 Dextroamphetamine/Amphetamine (AMPHETAMINE SALTS 20 MG TABLET) 20 Mg Tablet, #60 06/27/16 Fluticasone Propionate (FLUTICASONE PROPIONATE NASAL SPRAY) 16 Gm [place].susp, #16 06/27/16 Cyclobenzaprine Hcl (CYCLOBENZAPRINE HCL) 10 Mg Tablet, 1 TAB PO TID, #90 TAB 06/27/16 COLIN TAYLOR MD January 11, 2021 11:06
--- NOTE | 2021-01-11 12:16 | NUR ---
SS following up with discharge planning. SS reviewed pt chart and discussed with pt RN. Pt is currently on room air. PT/OT recommended home. Discharge order on the chart for home with home healthcare. SS met with pt to discuss discharge planning and home healthcare. Pt reported that she lives at [address] [place] [address] [address] Pt reporting that she cannot return to home that she is not stable enough and needs more therapy. Pt walked 25 feet with walker. SS discussed with case director of vendor management. [facility] stating that will not take pt back. Case director of vendor management suggested sending referral to other facility of pt choice. SS met with pt and discussed rehabilitation facilities. Pt requesting referral to [facility], ; fax [phone]. Pt reported that she does not want to go to nursing home unit due to limited pt to staff ratio and limited therapy. SS phoned and faxed referral to [facility] as requested. SS will continue to follow for discharge planning.
--- NOTE | 2021-01-11 12:49 | PDOC ---
WOO BARTON KITCHEN STEWARD 01/11/21 1249: CARDIO Progress Notes Date and Time Date of Service 01/11/2021 Time of Evaluation 1230 Subjective Subjective: No Chest Pain, No shortness of breath, No Palpitations Vitals Vitals Vital Signs Date Time Temp Pulse Resp B/P (MAP) Pulse Ox O2 Delivery O2 Flow Rate FiO2 01/11/21 11:00 98.5 88 16 118/76 (90) 96 Room Air 98.5 Weight Weight [ ] Input and Output Intake and Output Intake and Output 01/11/21 07:00 Intake Total 300 ml Output Total 400 ml Balance -100 ml Intake Oral 300 ml Output Urine Total 400 ml Laboratory Labs Laboratory Tests Test 01/10/21 17:12 Glucose (Fingerstick) 122 mg/dL (70-99) Physical Exam HEENT: Neck Supple W Full Motion Chest: Symmetric LUNGS: Clear to Auscultation Heart: S1S2, RRR (SR) Abdomen: Soft N/T Extremities: No Calf Tenderness Neurology: alert, oriented, follow commands Other Exams discussed assessment with RN as pt is hurrying up to go home already on a WC Assessment Assessment 1. Headaches: per neurology 2. Atypical chest pain: better possibly MSK 3. Cardiomyopathy: [id number] EF at 48% 4. Diabetes mellitus. As per the primary service. Unknown FLP 5. Hypertension. Controlled. 6. Anxiety 7. Morbid obesity Recommendations' 1. ECASA 81 mg daily 2. Pt had MPI unknown result and suppose to follow up with cardiology but missed appt due to this admission. So far trops nml and pt mentions discussion of possible outpt LHC. Will defer this with his primary vaccinator 3. Continue BP regimen. Will need FLP if none recently and consider for statin Justicifation of Admission Dx: Justifications for Admission: Justification of Admission Dx: Yes FAUSTO ESCAMILLA MD 01/11/21 1840: CARDIO Progress Notes Assessment Assessment Patient seen and evaluated. I agree with our nurse practitioners assessment and plan as above. Headaches: per neurology Atypical chest pain: better. Continue present treatment. Is followed at . Cardiomyopathy: recent EF at 48%. Continue present treatment. Diabetes mellitus. As per the primary service. Hypertension. Controlled. WOO BARTON APRN January 11, 2021 12:49 FAUSTO ESCAMILLA MD January 11, 2021 18:40
--- NOTE | 2021-01-11 13:19 | NUR ---
Pt arrived on unit at approx 1300 by wheelchair via transport. Upon arrival, pt expressed her dissatisfaction on the cleanliness of her room. Pt requested that the floors be reswept and mopped, the tables be wiped down, the sheets to be changed, etc. This RN notified Margarita auditor in charge, Kristi, floor service worker spring, and Edna, nursing yard labor supervisor of situation. Pt requested to speak to the market research senior project manager of [employer]. [facility] paged, stated that they would be up to talk with pt. Margarita auditor in charge spoke with pt and addressed the complaints furthermore. Pt has no complaints of pain upon arrival. Meal tray and soda on bedside table. Call light within reach, all additional concerns addressed. Will assume care of this pt.
[2021-01-11 15:00] VITALS: BP 116/80
[2021-01-11 19:30] VITALS: BP 112/71
--- NOTE | 2021-01-11 19:30 | NUR ---
Pt stated has "4 days of urbina urbina stuck up in there." Requested an enema. Dr Gonzalez called and order given for soap suds enema. Will administer and monitor pt. Addendum: 01/12/21 at 0121 by SUSY FELICIANO RN RN [id number]: Pt given 750 ml soap suds enema per her request. Will continue to monitor pt status
[2021-01-11] MEDS ORDERED: AMITRIPTYLINE HCL 25 MG TABLET. PO SCH (21:00)
[2021-01-11] MEDS: SENNOSIDES/DOCUSATE 8.6/50MG TABLET. PO SCH (21:54)
[2021-01-11 22:32] VITALS: BP 127/77
[2021-01-12] MEDS: oxyCODONE IR 5 MG TABLET PO PRN ×2 (03:54→09:50)
[2021-01-12] MEDS: diphenhydrAMINE 50 MG/ML VIAL IVP PRN ×2 (03:54→10:17)
[2021-01-12] MEDS: IMIPRAMINE 25 MG TABLET PO PRN (03:58)
[2021-01-12] MEDS: BUTALB/APAP/CAFEIN 50/325/40MG TABLET. PO PRN ×2 (06:11→15:02)
[2021-01-12] MEDS: ONDANSETRON PF 4 MG/2 ML VIAL. IVP PRN (06:30)
--- NOTE | 2021-01-12 07:15 | NUR ---
Patient given full enema bucket with Castile soap, results yet to be seen, day rn notified
[2021-01-12] MEDS ORDERED: ASPIRIN ENTERIC COATED 81 MG TABLET.DR. PO SCH (08:00)
--- NOTE | 2021-01-12 09:31 | PDOC ---
PROGRESS NOTES Date of Service DATE: 01/12/21 TIME: 09:30 Assessment Problems Medical Problems: (1) Chest pain Status: Acute (2) Migraine Status: Acute Intractable migraine, history of migraine-associated stroke symptoms. She has seen Dr. Garza, last in 2014. She is now seeing a neurologist at titrating amitriptyline upward. She is receiving sumatriptan and Lortab here. She would like the 10 mg size. History of fibromyalgia Diabetes, constipation Longstanding use of walker due to back pain Plan Discharge back to halfway, but I understand we are having trouble with placement, she may need to go home with home health Continue her current regimen Continue upwardly titrating amitriptyline under the care of her neurologist. I increasee the dose to 25 mg Inpatient hospitalization for migraine is rarely helpful, I have nothing to add to these above recommendations. Subjective Pain is 7/10 Objective Vital Signs Date Time Temp Pulse Resp B/P (MAP) Pulse Ox O2 Delivery O2 Flow Rate FiO2 01/12/21 03:54 19 Room Air 01/11/21 22:32 98.3 84 127/77 (94) 96 98.3 Intake and Output 01/12/21 07:00 Intake Total 180 ml Balance 180 ml Intake Oral 180 ml # Voids 2 PHYSICAL EXAM Alert. Oriented to time, place and person. In no acute distress, has 7/10 pain PERRL. EOMI. CN: no focal findings. Muscle tone: normal. Muscle strength: 5/5 DTR: 5/5 Plantar reflex: 2+ Gait: not tested, reportedly doing well with walker. Sensory exam: no abnormal findings. No cerebellar signs elicited. Review of Relevant I have reviewed the following items susy (where applicable) has been applied. Labs Laboratory Tests Test 01/10/21 11:50 01/10/21 12:01 01/10/21 17:12 White Blood Count 4.9 x10^3/uL (4.0-11.0) Red Blood Count 4.29 x10^6/uL (3.50-5.40) Hemoglobin 12.5 g/dL (12.0-15.5) Hematocrit 38.3 % (36.0-47.0) Mean Corpuscular Volume 89 fL (79-100) Mean Corpuscular Hemoglobin 29 pg (25-35) Mean Corpuscular Hemoglobin Concent 33 g/dL (31-37) Red Cell Distribution Width 14.1 % (11.5-14.5) Platelet Count 252 x10^3/uL (140-400) Neutrophils (%) (Auto) 52 % (31-73) Lymphocytes (%) (Auto) 33 % (24-48) Monocytes (%) (Auto) 13 % (0-9) Eosinophils (%) (Auto) 2 % (0-3) Basophils (%) (Auto) 1 % (0-3) Neutrophils # (Auto) 2.5 x10^3/uL (1.8-7.7) Lymphocytes # (Auto) 1.6 x10^3/uL (1.0-4.8) Monocytes # (Auto) 0.6 x10^3/uL (0.0-1.1) Eosinophils # (Auto) 0.1 x10^3/uL (0.0-0.7) Basophils # (Auto) 0.0 x10^3/uL (0.0-0.2) Erythrocyte Sedimentation Rate 11 (0-25) Sodium Level 144 mmol/L (136-145) Potassium Level 4.5 mmol/L (3.5-5.1) Chloride Level 105 mmol/L (98-107) Carbon Dioxide Level 29 mmol/L (21-32) Anion Gap 10 (6-14) Blood Urea Nitrogen 13 mg/dL (7-20) Creatinine 0.8 mg/dL (0.6-1.0) Estimated GFR (Cockcroft-Gault) 91.5 Glucose Level 128 mg/dL (70-99) Calcium Level 8.8 mg/dL (8.5-10.1) Glucose (Fingerstick) 135 mg/dL (70-99) 122 mg/dL (70-99) Medications Current Medications Prochlorperazine Edisylate (Compazine) 10 mg 1X ONCE IV Last administered on 01/08/21at 14:25; Start 01/08/21 at 13:00; Stop 01/08/21 at 13:01; Status DC Fentanyl Citrate (Fentanyl 2ml Vial) 50 mcg 1X ONCE IVP Last administered on 01/08/21at 14:25; Start 01/08/21 at 13:00; Stop 01/08/21 at 13:01; Status DC Morphine Sulfate (Morphine Sulfate) 4 mg PRN Q2HR PRN IV PAIN Last administered on 01/09/21at 09:05; Start 01/08/21 at 17:45; Stop 01/09/21 at 10:01; Status DC Acetaminophen (Tylenol) 650 mg PRN Q4HRS PRN PO FEVER > 100.5'F Last administered on 01/11/21at 21:54; Start 01/08/21 at 19:00 Amitriptyline HCl (Elavil) 10 mg QHS PO Last administered on 01/10/21at 21:10; Start 01/08/21 at 21:00; Stop 01/11/21 at 09:52; Status DC Bisacodyl (Dulcolax Supp) 10 mg BID RC Last administered on 01/11/21 21:55; Start 01/08/21 at 21:00 Lorazepam (Ativan Intensol) 2 mg PRN Q12HR PRN PO ANXIETY / AGITATION Last administered on 01/11/21at 22:01; Start 01/08/21 at 19:00 Methocarbamol (Robaxin) 1,000 mg TID PO Last administered on 01/11/21at 21:53; Start 01/08/21 at 21:00 Metoprolol Succinate (Toprol Xl) 25 mg DAILY PO Last administered on 01/11/21at 08:22; Start 01/09/21 at 09:00 Polyethylene Glycol (miraLAX PACKET) 17 gm TID PO Last administered on 01/11/21at 21:55; Start 01/08/21 at 21:00 Senna/Docusate Sodium (Senna Plus) 2 tab QHS PO Last administered on 01/11/21at 21:54; Start 01/08/21 at 21:00 Sucralfate (Carafate) 1 gm TID PRN PO ABDOMINAL PAIN; Start 01/08/21 at 19:00 Acetaminophen/ Butalbital/ Caffeine (Fioricet) 1 tab PRN Q4HRS PRN PO headache Last administered on 01/12/21at 06:11; Start 01/08/21 at 19:15 Non-Formulary Medication (Dextroamphetamine/ Amphetamine (Adderall Xr 20 Mg Capsule)) 20 mg DAILY PO ; Start 01/09/21 at 09:00; Stop 01/09/21 at 18:29; Status DC Diphenhydramine HCl (Benadryl) 25 mg QHS PO Last administered on 01/08/21 20:58; Start 01/08/21 at 21:00; Stop 01/09/21 at 01:12; Status DC Gabapentin (Neurontin) 1,200 mg TID PO Last administered on 01/11/21 21:53; Start 01/08/21 at 21:00 Losartan Potassium (Cozaar) 100 mg DAILY PO Last administered on 01/11/21 08:22; Start 01/09/21 at 09:00 Magnesium Oxide (Magnesium Oxide) 400 mg DAILY PO Last administered on 01/11/21 08:20; Start 01/09/21 at 09:00 Non-Formulary Medication (Melatonin ) 30 mg QHS PO ; Start 01/08/21 at 21:00; Status UNV Metformin HCl (Glucophage) 1,000 mg BIDWMEALS PO Last administered on 01/11/21 17:27; Start 01/09/21 at 08:00 Pantoprazole Sodium (Protonix) 40 mg DAILYAC PO Last administered on 01/11/21 08:20; Start 01/09/21 at 07:30 Imipramine HCl (Tofranil) 50 mg PRN Q6HRS PRN PO MIGRAINE Last administered on 01/12/21 03:58; Start 01/08/21 at 19:15 Diphenhydramine HCl (Benadryl) 50 mg PRN Q6HRS PRN IVP ITCHING Last administered on 01/12/21 03:54; Start 01/09/21 at 01:00 Ondansetron HCl (Zofran) 4 mg PRN Q4HRS PRN IVP NAUSEA/VOMITING Last administered on 01/12/21 06:30; Start 01/09/21 at 06:45 Magnesium Hydroxide (Milk Of Magnesia) 2,400 mg PRN DAILY PRN PO CONSTIPATION Last administered on 01/11/21 08:23; Start 01/09/21 at 14:00 Oxycodone HCl (Roxicodone) 5 mg PRN Q6HRS PRN PO PAIN Last administered on 01/10/21 02:51; Start 01/09/21 at 14:00; Stop 01/10/21 at 09:28; Status DC Oxycodone HCl (Roxicodone) 10 mg PRN Q6HRS PRN PO PAIN Last administered on 01/12/21at 03:54; Start 01/10/21 at 09:30 Fluoxetine HCl (PROzac) 40 mg DAILY PO Last administered on 01/11/21at 08:21; Start 01/10/21 at 10:00 Sumatriptan Succinate (Imitrex) 50 mg 1X ONCE PO Last administered on 01/10/21at 16:57; Start 01/10/21 at 16:00; Stop 01/10/21 at 16:06; Status DC Fentanyl Citrate (Fentanyl 2ml Vial) 50 mcg 1X ONCE IVP Last administered on 01/10/21at 16:57; Start 01/10/21 at 16:45; Stop 01/10/21 at 16:46; Status DC Sumatriptan Succinate (Imitrex) 50 mg 1X ONCE PO Last administered on 01/10/21at 21:15; Start 01/10/21 at 19:00; Stop 01/10/21 at 19:01; Status DC Hydroxyzine HCl (Atarax) 25 mg PRN Q6HRS PRN PO ITCHING Last administered on 01/11/21at 21:54; Start 01/11/21 at 01:30 Amitriptyline HCl (Elavil) 25 mg QHS PO Last administered on 01/11/21at 21:00; Start 01/11/21 at 21:00 Aspirin (Ecotrin) 81 mg DAILYWBKFT PO ; Start 01/12/21 at 08:00 Active Scripts Active Hydroxyzine Hcl 25 Mg Tablet 25 Mg PO PRN Q6HRS PRN 10 Days Fluoxetine Hcl 20 Mg Capsule 40 Mg PO DAILY 30 Days Amitriptyline Hcl 25 Mg Tablet 25 Mg PO QHS 30 Days Reported Qnepzl-Famvljj-Nvxyi 50-325-40 (Butalbital/Aspirin/Caffeine) 1 Each Tablet 1 Tab PO PRN Q4HRS PRN MDD 1 Tablet(s) 30 Days Methocarbamol 500 Mg Tablet 1,000 Mg PO TID Sucralfate 1 Gm Tablet 1 Tab PO TID PRN Tylenol (Acetaminophen) 325 Mg Tablet 650 Mg PO PRN Q4HRS PRN Lorazepam 2 Mg/1 Ml Oral.conc 2 Mg PO PRN Q12HR PRN Senna Plus Tablet (Sennosides/Docusate Sodium) 1 Each Tablet 2 Tab PO QHS 14 Days Diphenhydramine Hcl 25 Mg Tablet 1 Tab PO QHS 30 Days Melatonin 10 Mg Tablet.er 30 Mg PO QHS Losartan Potassium 100 Mg Tablet 100 Mg PO DAILY Adderall Xr 20 Mg Capsule (Dextroamphetamine/Amphetamine) 20 Mg Cap.er.24h 20 Mg PO DAILY Omeprazole 20 Mg Capsule.dr 20 Mg PO DAILY Metoprolol Succinate ( Xl ) (Metoprolol Succinate) 25 Mg Tab.er.24h 25 Mg PO DAILY Magnesium Gluconate 27 Mg Tablet 500 Mg PO DAILY 30 Days Tramadol Hcl 100 Mg Tbmp.24hr 100 Mg PO Q6H PRN Milk Of Magnesia (Magnesium Hydroxide) 2,400 Mg/10 Ml Oral.susp 1,200 Mg PO PRN DAILY PRN Metformin Hcl 1,000 Mg Tablet 1,000 Mg PO BIDWMEALS Zofran (Ondansetron Hcl) 4 Mg Tablet 2 Tab PO PRN Q6-8HRS Dulcolax (Bisacodyl) 10 Mg Supp.rect 1 Supp RC BID 10 Days Miralax (Polyethylene Glycol 3350) 17 Gm Powd.pack 1 Pkt PO TID Imitrex (Sumatriptan Succinate) 50 Mg Tablet 50 Mg PO PRN Q6HRS PRN Gabapentin 600 Mg Tablet 1,200 Mg PO TID Vitals/I & O Vital Sign - Last 24 Hours 01/11/21 01/11/21 01/11/21 01/11/21 10:46 11:00 15:00 19:30 Temp 98.5 99.1 98.8 98.5 99.1 98.8 Pulse 88 86 90 Resp 16 18 20 B/P (MAP) 118/76 (90) 116/80 (92) 112/71 (85) Pulse Ox 98 96 97 95 O2 Delivery Room Air Room Air Room Air 01/11/21 01/12/21 22:32 03:54 Temp 98.3 98.3 Pulse 84 Resp 18 19 B/P (MAP) 127/77 (94) Pulse Ox 96 O2 Delivery Room Air Room Air Intake and Output 01/11/21 01/11/21 01/12/21 15:00 23:00 07:00 Intake Total 180 ml Balance 180 ml Justicifation of Admission Dx: Justifications for Admission: Justification of Admission Dx: Yes TRACI GARAY MD January 12, 2021 09:31
[2021-01-12] MEDS: PANTOPRAZOLE 40 MG TABLET.DR. PO SCH (09:47)
[2021-01-12] MEDS: MAGNESIUM OXIDE 400 MG TABLET PO SCH (09:47)
[2021-01-12] MEDS: BISACODYL 10 MG SUPP.RECT. RC SCH (09:48)
[2021-01-12] MEDS: ACETAMINOPHEN 325 MG TABLET. PO PRN ×2 (09:48→14:20)
[2021-01-12] MEDS: metFORMIN 500 MG TABLET PO SCH (09:48)
[2021-01-12] MEDS: GABAPENTIN 400 MG CAPSULE. PO SCH ×2 (09:48→14:17)
[2021-01-12] MEDS: LOSARTAN POTASSIUM 50 MG TABLET. PO SCH (09:49)
[2021-01-12] MEDS: POLYETHYLENE GLYCOL 3350 17 GM PACKET. PO SCH ×2 (09:49→14:21)
[2021-01-12] MEDS: METHOCARBAMOL 500 MG TABLET PO SCH ×2 (09:50→14:17)
[2021-01-12] MEDS: METOPROLOL SUCC 24HR ER 25 MG TAB.ER.24H. PO SCH (09:50)
[2021-01-12] MEDS: FLUoxetine HCL 20 MG CAPSULE PO SCH (09:51)
--- NOTE | 2021-01-12 09:52 | NUR ---
SS following up with discharge planning. SS reviewed pt chart and contacted floor. [facility] clinically declined pt stating that pt was too high level for inpatient rehabilitation. SS discussed with pt and provided reasoning for facilities denying inpatient rehabilitation. SS discussed home healthcare with pt and home health vestibular therapy. Pt agreeable to home healthcare at this time and did not state a preference of company. Pt requesting wheelchair for home. Referral sent to [facility], ; fax [phone]. Nurse navigator, Megan, to meet with pt today. SS contacted physician and requested script for wheelchair. Per pt request, SS contacted [facility] and requested that pt's belongings be brought to the hospital. SS will continue to follow for discharge planning.
--- NOTE | 2021-01-12 10:25 | NUR ---
SS following up with discharge planning. Script for wheelchair received. SS phoned and faxed script and clinical to [facility], ; fax [phone]. SS will continue to follow for discharge planning.
--- NOTE | 2021-01-12 11:08 | DS ---
DATE OF DISCHARGE: 01/12/2021 ADMISSION DIAGNOSIS: Intractable migraine. DISCHARGE DIAGNOSES: Resolving intractable migraine, probable narcotic dependence; probable malingering, polypharmacy, chronic pain, bipolar, anxiety, depression, diabetes, breast cancer, uterine cancer, multiple surgeries, neuropathy, posttraumatic stress disorder , herpes, hypertension, fibromyalgia, sciatica. CONSULTATIONS: Neurology and Cardiology. PROCEDURES: None. HOSPITAL COURSE: The patient is a pleasant, middle-aged female, who has some drug seeking behavior and narcotic dependence and she apparently goes to a lot of hospitals and doctors. She presented with a headache. She is admitted. We gave her p.r.n. pain meds. We consulted Neurology and Cardiology. Over the past few days, she has returned to baseline. Today when I saw her and examined her, she was working on her third antibiotics. I discussed the case with nurse. The patient really is doing quite well. We are going to go ahead and discharge. I left prescriptions for some p.r.n. oxycodone and Ativan. DISPOSITION: Home. ACTIVITY: As tolerated. DIET: Low sodium. DISCHARGE MEDICATIONS: Please see the MRAD. Total time is 34 minutes. MEDICATIONS: I left the prescription for ____ IR 5 mg one q.6 hours p.r.n. I gave her 10 tablets. Ativan 1 mg 10 tablets, take 1 p.o. q.6 hours. We are going to continue her home Tylenol, Dulcolax, Soma, Adderall 20 mg everyday, gabapentin 600 t.i.d., losartan 100 everyday, magnesium 500 mg p.o. daily, milk of mag p.r.n., melatonin p.r.n., metformin 1000 b.i.d., metoprolol 25 q.24 hours, omeprazole 20 a day, ondansetron 4 mg q.6h. p.r.n., MiraLax p.r.n., senna p.r.n., Carafate 1 gram t.i.d., Imitrex p.r.n. and Ultram 100 q.6 hours p.r.n. DANIELITO/DANIEL/[facility]: DANIELITO/rudi TID: [id number]
[2021-01-12 11:41] VITALS: BP 136/88
--- NOTE | 2021-01-12 11:54 | NUR ---
Patient has informed me of her situated several times today. Patient stated she never saw OT, then later stated OT was never evaluating. Patient then stated the report was read to her, and OT was subjective.
--- NOTE | 2021-01-12 14:33 | NUR ---
SS following up with discharge planning. Pt needing transportation to home. SS left message for [facility] transportation. SS contacted [facility] and [facility] transportation. Soonest transport available from [phone]. Pt will discharge today and return to home between 1600 and 1630 via [facility] transportation. Pt's RN notified.
[2021-01-12 15:59] VITALS: BP 126/73
--- NOTE | 2021-01-12 16:25 | NUR ---
SS following up with discharge planning. Pt requesting to appeal discharge from hospital. SS was informed that pt has [employer] [place] is primary and there are no appeal options for discharge. SS met with pt and notified. Transportation arriving between 1600 and 1630 for discharge.
--- NOTE | 2021-01-12 17:05 | NUR ---
Patient escorted out in her own wheelchair with all belongings and prescriptions given, by transportation and [facility]. Patient kept refusing to discharge. Security, administration and nursing car repair supervisor, along with this RN, all informed the patient of being medically cleared. Patient refused Home Health. Patient finally agreed to leave at 1658 after Jaelyn Crawford spoke with patient. Patient informed security her "discharge was racially motivated." Patient was uncooperative, aggressive, and agitated for several hours prior to discharge.
== END 2021-01-12 17:05 | disposition home or self-care (01) | DRG 103 ==
LOC: ER 12:37 → 2 SOUTH 14:37 → 6 SOUTH 01-11 12:40
PROVIDERS: ADMIT Internal Medicine; ATTEND Internal Medicine
DX: G43.111 Migraine with aura, intractable, with status migrainosus (principal); Z68.41 Body mass index [BMI] 40.0-44.9, adult; F11.20 Opioid dependence, uncomplicated; I42.9 Cardiomyopathy, unspecified; R07.9 Chest pain, unspecified; E11.40 Type 2 diabetes mellitus with diabetic neuropathy, unspecified; K21.9 Gastro-esophageal reflux disease without esophagitis; F31.9 Bipolar disorder, unspecified; F41.1 Generalized anxiety disorder; F43.10 Post-traumatic stress disorder, unspecified; M79.7 Fibromyalgia; E66.01 Morbid (severe) obesity due to excess calories; I10 Essential (primary) hypertension; R29.810 Facial weakness; K59.09 Other constipation; M54.30 Sciatica, unspecified side; G89.29 Other chronic pain; Z90.710 Acquired absence of both cervix and uterus; Z90.13 Acquired absence of bilateral breasts and nipples; Z85.42 Personal history of malignant neoplasm of other parts of uterus; Z85.3 Personal history of malignant neoplasm of breast; Z76.5 Malingerer [conscious simulation]; Z88.8 Allergy status to other drugs, medicaments and biological substances; Z88.6 Allergy status to analgesic agent; Z88.2 Allergy status to sulfonamides
CPT/HCPCS: 36415; 70450; 71045; 80048; 80053; 82962; 83690; 83735; 83880; 84484; 85025; 85610; 85651; 96374; 96375; J0780; J1200; J2270; J2405; J3010; 97110-GP; 97530-GP; 99285-25; G0378; Q0163